=== PATIENT | female | born 1960 | race Two or more races ===

== ENCOUNTER 2017-02-17 18:17 | Inpatient (IN) | payer SELFPAY ==
[~2017-02-17] VITALS: Ht 165.1 cm; Wt 81.6 kg
[2017-02-17 18:46] LABS: DEFINITIVE VIEW TRANSMISSION; Hematocrit 46.7 % (36.0-46.0); Hemoglobin 15.4 g/dL (12.2-16.2); Mean Corpuscular Hemoglobin 31.5 pg (28.0-32.0); Mean Corpuscular Hgb Conc. 33.1 g/dL (32.0-36.0); Mean Corpuscular Volume 95.2 fL (80.0-100.0); Mean Platelet Volume 9.1 fL (7.4-10.4); Platelet Count (auto) 254 10^3/uL (140-450); Red Cell Distribution Width 14.3 % (11.6-16.0); SUSPECT VIEW TRANSMISSION
[2017-02-17 19:13] LABS: Metamyelocytes % 0; Myelocytes % 0; Promyelocytes % 0; Reactive Lymphocytes 0
[2017-02-17 19:19] LABS: Platelet Estimate Adequate
[2017-02-17 19:35] LABS: Albumin 3.2 g/dL (3.4-5.0); Anion Gap 25 (5-15); Aspartate Aminotransferase 15 U/L (15-37); BUN/Creatinine Ratio 13.7; Blood Urea Nitrogen 43 mg/dL (7-18); Calcium 7.2 mg/dL (8.5-10.1); Chloride 106 mmol/L (98-107); GFR African American 19 mL/min; GFR Non-African American 16 mL/min; Glucose 134 mg/dL (74-106); Sodium 133 mmol/L (136-145)
[2017-02-17] MEDS ORDERED: SODIUM CHLORIDE 0.9% 1,000 ML IVB ONE (19:39)
[2017-02-17 19:40] LABS: Alkaline Phosphatase 99 U/L (45-117); Bilirubin, Total < 0.1 mg/dL (0.2-1.0); Total Protein 6.4 g/dL (6.4-8.2)
[2017-02-17 19:43] LABS: Carbon Dioxide 2 mmol/L (21-32)
[2017-02-17] MEDS ORDERED: VANCOMYCIN 1GM/250ML D5W 250 ML IV ONE (19:45)
[2017-02-17] MEDS ORDERED: PIPERACILLIN-TAZOB 3.375GM 100 ML IV ONE (19:45)
[2017-02-17] MEDS ORDERED: SODIUM CHLORIDE 0.9% 2,000 ML IV ONE (19:45)
[2017-02-17 20:21] LABS: Urine Bilirubin Negative (Negative); Urine Color Yellow (Yellow); Urine Glucose Normal (Normal); Urine Ketone Negative (Negative); Urine Nitrite Negative (Negative); Urine RBC 10 /hpf (0 - 4); Urine Squamous Epithelial Cell FEW /hpf (<5); Urine Urobilinogen Normal (Negative); Urine WBC Clumps PRESENT /hpf (None Seen); Urine pH 5.5 (5.0-8.0)
[2017-02-17 20:23] LABS: Urine Blood 2+ /uL (Negative)
[2017-02-17 20:44] LABS: Magnesium 3.1 mg/dL (1.6-2.6)
[2017-02-17 20:58] LABS: INR 1.1 (0.9-1.15); Partial Thromboplastin Time 27.3 sec (22.64-33.71); Prothrombin Time 11.9 sec (9.37-12.3)
[2017-02-17] MEDS ORDERED: CEFTRIAXONE SODIUM 2 GM in D5W 5% 50 ML IV ONE (21:00)
[2017-02-17] MEDS ORDERED: SODIUM BICARBONATE 8.4 % INJ 50ML VIAL IV ONE (21:15)
[2017-02-17] MEDS ORDERED: NOREPINEPHRINE BITARTRATE 250 ML IV SCH (22:00)
[2017-02-17] MEDS ORDERED: ALBUTEROL SULF 2.5 MG/0.5ML(0.5%) NEB SOLN NEB ONE (22:45)
[2017-02-17] MEDS ORDERED: cefTRIAXone SOD 1,000 MG VL ONE (22:46)
[2017-02-18] MEDS ORDERED: SODIUM CHLORIDE 0.9% 1,000 ML IV SCH (02:14)
[2017-02-18] MEDS ORDERED: MORPHINE SULF INJ 2 MG/ML SYRINGE 1ML IV PRN (02:15)
[2017-02-18] MEDS ORDERED: PANTOPRAZOLE SODIUM 40 MG/10 ML VIAL IV ONE (02:15)
[2017-02-18] MEDS ORDERED: ONDANSETRON HCL 4 MG/2 ML VIAL IV PRN (02:15)
[2017-02-18] MEDS ORDERED: NITROGLYCERIN 0.4 MG SL TAB SL PRN (02:15)
[2017-02-18] MEDS ORDERED: ACETAMINOPHEN 325 MG TAB PO PRN (02:15)
[2017-02-18 03:15] LABS: BUN/Creatinine Ratio 15.3; Calcium 6.3 mg/dL (8.5-10.1); Potassium 3.3 mmol/L (3.5-5.1)
[2017-02-18] MEDS ORDERED: SODIUM BICARBONATE 8.4 % INJ 50ML VIAL IV ONE ×3 (03:15→07:00)
[2017-02-18] MEDS ORDERED: VANCOMYCIN PER PHARMACY 0 MG IV SCH (08:00)
[2017-02-18 08:11] VITALS: BP 124/65
[2017-02-18] MEDS: PANTOPRAZOLE SODIUM 40 MG/10 ML VIAL IV SCH (09:47)
[2017-02-18] MEDS: ENOXAPARIN SOD 30 MG/0.3 ML SYRINGE SC SCH (09:48)
[2017-02-18] MEDS: PIPERACILLIN-TAZOB 2.25GM 50 ML IV SCH ×2 (09:55→16:00)
[2017-02-18] MEDS ORDERED: LEVOFLOXACIN 500MG 100 ML IV ONE (10:00)
[2017-02-18] MEDS ORDERED: LEVOFLOXACIN 250MG 50 ML IV SCH (10:00)
[2017-02-18] MEDS ORDERED: BRIM0.159 OP (10:17)
[2017-02-18 10:50] LABS: DEFINITIVE VIEW TRANSMISSION; Hematocrit 42.7 % (36.0-46.0); Hemoglobin 14.1 g/dL (12.2-16.2); Mean Corpuscular Hemoglobin 31.8 pg (28.0-32.0); Mean Corpuscular Hgb Conc. 32.9 g/dL (32.0-36.0); Mean Corpuscular Volume 96.5 fL (80.0-100.0); Mean Platelet Volume 8.8 fL (7.4-10.4); Platelet Count (auto) 144 10^3/uL (140-450); Red Cell Distribution Width 14.2 % (11.6-16.0); SUSPECT VIEW TRANSMISSION
[2017-02-18 10:59] LABS: Urine Bilirubin Negative (Negative); Urine Color Yellow (Yellow); Urine Glucose Normal (Normal); Urine Nitrite Negative (Negative); Urine RBC 599 /hpf (0 - 4); Urine Squamous Epithelial Cell FEW /hpf (<5); Urine Urobilinogen Normal (Negative); Urine WBC Clumps PRESENT /hpf (None Seen)
[2017-02-18 11:00] LABS: Urine Blood 3+ /uL (Negative); Urine Ketone 1+ (Negative)
[2017-02-18 11:10] LABS: White Blood Cell 40.1 10^3/uL (4.4-10.8)
[2017-02-18 11:34] LABS: Myelocytes % 0; Promyelocytes % 0; Reactive Lymphocytes 0
[2017-02-18 11:38] LABS: Metamyelocytes % 4; Platelet Estimate Adequate
[2017-02-18 11:39] LABS: Burr Cells MODERATE
[2017-02-18 12:12] VITALS: BP 101/64
[2017-02-18] MEDS ORDERED: POTASSIUM CHL 20MEQ/100ML 400 ML IV ONE (12:53)
[2017-02-18] MEDS: POTASSIUM CHL 20MEQ/100ML 100 ML IV SCH ×5 (14:00→23:57)
[2017-02-18] MEDS: SODIUM BICARBONATE 50ML VIAL 150 ML in D5W 5% 1,000 ML IV SCH ×2 (14:00→22:53)
[2017-02-18] MEDS: LINEZOLID 600MG/300ML 300 ML IV SCH ×2 (14:45→22:53)
[2017-02-18] MEDS: ALBUTEROL SULF 2.5 MG/0.5ML(0.5%) NEB SOLN NEB PRN (15:41)
[2017-02-18 16:00] VITALS: BP 101/45
[2017-02-18 16:20] LABS: Hematocrit 33.2 % (36.0-46.0); Hemoglobin 11.3 g/dL (12.2-16.2); Mean Corpuscular Hemoglobin 31.6 pg (28.0-32.0); Mean Corpuscular Hgb Conc. 33.9 g/dL (32.0-36.0); Mean Corpuscular Volume 93.3 fL (80.0-100.0); Mean Platelet Volume 9.5 fL (7.4-10.4); Platelet Count (auto) 141 10^3/uL (140-450); Red Cell Distribution Width 14.1 % (11.6-16.0); SUSPECT VIEW TRANSMISSION; White Blood Cell 22.4 10^3/uL (4.4-10.8)
[2017-02-18 16:23] LABS: Metamyelocytes % 0; Myelocytes % 0; Promyelocytes % 0; Reactive Lymphocytes 0
[2017-02-18 16:44] LABS: BUN/Creatinine Ratio 13.2
[2017-02-18 16:45] LABS: Calcium 5.8 mg/dL (8.5-10.1); Potassium 2.6 mmol/L (3.5-5.1)
[2017-02-18 17:27] LABS: Platelet Estimate Decreased
[2017-02-18] MEDS ORDERED: LIDOCAINE 1% HCL (LOCAL ANESTH.) INJ 20ML MDV ID ONE (17:30)
[2017-02-18] MEDS ORDERED: VANCOMYCIN 1GM/250ML D5W 250 ML IV SCH (19:00)
[2017-02-18 20:00] VITALS: BP 129/98
[2017-02-18 20:24] LABS: Cholesterol 116 mg/dL (< 200); HDL Cholesterol 29 mg/dL (40-59); LDL Cholesterol 72 mg/dL (< 100); Triglycerides 70 mg/dL (< 150)
[2017-02-18 21:39] VITALS: BP 101/45
[2017-02-18] MEDS ORDERED: PATIENTS OWN MEDICATION EACHEYE SCH ×2 (22:00)
[2017-02-18] MEDS: BRIMONIDINE 0.2% OPTH Soln 5ml EACHEYE SCH (22:53)
[2017-02-18] MEDS: SODIUM CHLOR 0.9% PF (SALINE LOCK) 10ML VIAL IV SCH (22:53)
[2017-02-18 23:42] LABS: BUN/Creatinine Ratio 11.1
[2017-02-18 23:44] LABS: Potassium 2.6 mmol/L (3.5-5.1)
[2017-02-18 23:45] LABS: Calcium 5.5 mg/dL (8.5-10.1)
[2017-02-19] VITALS: BP 109/45
[2017-02-19] MEDS: POTASSIUM CHL 20MEQ/100ML 100 ML IV SCH (00:51)
[2017-02-19] MEDS: PIPERACILLIN-TAZOB 2.25GM 50 ML IV SCH ×3 (00:51→18:43)
[2017-02-19 04:00] VITALS: BP 98/42
[2017-02-19] MEDS: BRIMONIDINE 0.2% OPTH Soln 5ml EACHEYE SCH ×3 (05:16→22:14)
[2017-02-19] MEDS: ALBUTEROL SULF 2.5 MG/0.5ML(0.5%) NEB SOLN NEB PRN (06:06)
[2017-02-19 06:14] LABS: Hematocrit 28.2 % (36.0-46.0); Hemoglobin 9.6 g/dL (12.2-16.2); Mean Corpuscular Hemoglobin 31.7 pg (28.0-32.0); Mean Corpuscular Hgb Conc. 34.2 g/dL (32.0-36.0); Mean Corpuscular Volume 92.6 fL (80.0-100.0); Mean Platelet Volume 9.8 fL (7.4-10.4); Platelet Count (auto) 116 10^3/uL (140-450); Red Cell Distribution Width 13.9 % (11.6-16.0); SUSPECT VIEW TRANSMISSION
[2017-02-19 06:19] LABS: Metamyelocytes % 0; Myelocytes % 0; Promyelocytes % 0; Reactive Lymphocytes 0
[2017-02-19 06:24] LABS: Albumin 2.3 g/dL (3.4-5.0); BUN/Creatinine Ratio 11.7
[2017-02-19 06:27] LABS: Calcium 5.5 mg/dL (8.5-10.1)
[2017-02-19 06:28] LABS: Bilirubin, Total 0.2 mg/dL (0.2-1.0); Potassium 2.5 mmol/L (3.5-5.1); Total Protein 4.8 g/dL (6.4-8.2); Uric Acid 6.2 mg/dL (2.6-6.0)
[2017-02-19] MEDS ORDERED: CALCIUM GLUC 4.65 MEQ/10ML 4.65 MEQ in SODIUM CHL 0.9% 50 ML IV ONE ×2 (07:00→08:00)
[2017-02-19] MEDS ORDERED: POTASSIUM CHL 20 Meq TABLET PO ONE ×2 (07:00→17:45)
[2017-02-19 08:00] VITALS: BP 100/78
[2017-02-19] MEDS: ENOXAPARIN SOD 30 MG/0.3 ML SYRINGE SC SCH (08:35)
[2017-02-19] MEDS: PANTOPRAZOLE SODIUM 40 MG/10 ML VIAL IV SCH (08:35)
[2017-02-19] MEDS: SODIUM BICARBONATE 50ML VIAL 150 ML in D5W 5% 1,000 ML IV SCH ×2 (08:45→11:58)
[2017-02-19 09:18] LABS: Ovalocytes FEW; Platelet Estimate Decreased; Stomatocytes Moderate
[2017-02-19] MEDS ORDERED: POTASSIUM CHLORIDE 40 MEQ, LIDOCAINE 1% (LOCAL ANESTH.) 4 ML in SODIUM CHL 0.9% 250 ML IV ONE (09:45)
[2017-02-19] MEDS ORDERED: LEVOFLOXACIN 250MG 50 ML IV SCH (10:00)
[2017-02-19] MEDS: SODIUM CHLOR 0.9% PF (SALINE LOCK) 10ML VIAL IV SCH ×2 (10:17→22:14)
[2017-02-19] MEDS: LINEZOLID 600MG/300ML 300 ML IV SCH ×2 (10:21→22:14)
[2017-02-19 12:00] VITALS: BP 112/58
[2017-02-19] MEDS ORDERED: LORazepam 2MG/ML-1ML VIAL ONE (13:57)
[2017-02-19] MEDS ORDERED: LORazepam 2MG/ML-1ML VIAL IV ONE (14:00)
[2017-02-19 16:00] VITALS: BP 116/75
[2017-02-19] MEDS: SOD CHL 0.45% 1,000 ML IV SCH (18:43)
[2017-02-19 20:00] VITALS: BP 101/53
[2017-02-20] VITALS: BP 98/60
[2017-02-20] MEDS: PIPERACILLIN-TAZOB 2.25GM 50 ML IV SCH ×2 (00:08→08:54)
[2017-02-20 04:00] VITALS: BP 128/52
[2017-02-20] MEDS: SOD CHL 0.45% 1,000 ML IV SCH (04:19)
[2017-02-20] MEDS: HYDROcodone-ACET 5/325MG TAB PO PRN ×2 (04:20→10:25)
[2017-02-20] MEDS: BRIMONIDINE 0.2% OPTH Soln 5ml EACHEYE SCH ×3 (06:03→21:07)
[2017-02-20 06:53] LABS: Basophils # (auto) 0 uL; Basophils % (auto) 0.4 % (0.0-2.0); Eosinophils # (auto) 0 uL; Eosinophils % (auto) 0.1 % (0.0-7.0); Hematocrit 26.6 % (36.0-46.0); Lymphocytes # (auto) 1.8 uL; Lymphocytes % (auto) 18.5 % (10.0-50.0); Mean Corpuscular Hemoglobin 31.8 pg (28.0-32.0); Mean Corpuscular Volume 93.6 fL (80.0-100.0); Mean Platelet Volume 10.1 fL (7.4-10.4); Monocytes # (auto) 0.9 uL; Monocytes % (auto) 9.4 % (0.0-12.0); Neutrophils # (auto) 6.8 uL; Neutrophils % (auto) 71.6 % (37.0-80.0); Platelet Count (auto) 92 10^3/uL (140-450); Red Cell Distribution Width 14.5 % (11.6-16.0); White Blood Cell 9.6 10^3/uL (4.4-10.8)
[2017-02-20 07:31] LABS: BUN/Creatinine Ratio 11.2
[2017-02-20 07:37] LABS: Calcium 5.9 mg/dL (8.5-10.1); Potassium 2.6 mmol/L (3.5-5.1)
[2017-02-20 07:58] VITALS: BP 111/77
[2017-02-20] MEDS ORDERED: POTASSIUM CHLORIDE 20 MEQ, LIDOCAINE 1% (LOCAL ANESTH.) 2 ML in SODIUM CHL 0.9% 100 ML IV ONE (09:30)
[2017-02-20] MEDS ORDERED: LOPERAMIDE HCL 2 MG CAP PO ONE (09:30)
[2017-02-20] MEDS ORDERED: POTASSIUM CHLORIDE 40 MEQ, LIDOCAINE 1% (LOCAL ANESTH.) 4 ML in SODIUM CHL 0.9% 250 ML IV ONE (09:30)
[2017-02-20] MEDS: SODIUM CHLOR 0.9% PF (SALINE LOCK) 10ML VIAL IV SCH ×2 (09:47→21:07)
[2017-02-20] MEDS: ENOXAPARIN SOD 30 MG/0.3 ML SYRINGE SC SCH (09:47)
[2017-02-20] MEDS: PANTOPRAZOLE SODIUM 40 MG/10 ML VIAL IV SCH (10:13)
[2017-02-20] MEDS: LINEZOLID 600MG/300ML 300 ML IV SCH (10:14)
[2017-02-20 11:58] VITALS: BP 132/80
[2017-02-20] MEDS ORDERED: cefTRIAXone 1GM/50ML D5W 50 ML IV ONE (12:00)
[2017-02-20] MEDS: SOD CHL 0.45% WITH 20MEQ KCL 1,000 ML IV SCH ×2 (12:52→22:50)
[2017-02-20] MEDS: LOPERAMIDE HCL 2 MG CAP PO PRN (12:57)
[2017-02-20] MEDS: POTASSIUM CHL 20 Meq TABLET PO SCH ×2 (14:51→21:32)
[2017-02-20 18:21] VITALS: BP 125/83
[2017-02-20 18:47] LABS: BUN/Creatinine Ratio 10.5; Potassium 3.7 mmol/L (3.5-5.1)
[2017-02-20 19:33] LABS: Calcium 5.8 mg/dL (8.5-10.1)
[2017-02-20] MEDS ORDERED: CALCIUM GLUC 4.65 MEQ/10ML 4.65 MEQ in SODIUM CHL 0.9% 50 ML IV ONE (20:30)
[2017-02-20 21:59] VITALS: BP 125/77
[2017-02-21] VITALS (7 sets, daily range): BP systolic 99–141; BP diastolic 51–94
[2017-02-21] MEDS: HYDROcodone-ACET 5/325MG TAB PO PRN ×2 (01:05→21:39)
[2017-02-21] MEDS: SOD CHL 0.45% WITH 20MEQ KCL 1,000 ML IV SCH (03:25)
[2017-02-21] MEDS: BRIMONIDINE 0.2% OPTH Soln 5ml EACHEYE SCH ×3 (05:18→21:40)
[2017-02-21] MEDS: POTASSIUM CHL 20 Meq TABLET PO SCH ×3 (05:18→21:40)
[2017-02-21] MEDS: LOPERAMIDE HCL 2 MG CAP PO PRN ×6 (08:41→22:36)
[2017-02-21] MEDS: cefTRIAXone 1GM/50ML D5W 50 ML IV SCH (08:42)
[2017-02-21] MEDS: PANTOPRAZOLE SODIUM 40 MG/10 ML VIAL IV SCH (09:38)
[2017-02-21] MEDS: ENOXAPARIN SOD 30 MG/0.3 ML SYRINGE SC SCH (09:38)
[2017-02-21] MEDS: SODIUM CHLOR 0.9% PF (SALINE LOCK) 10ML VIAL IV SCH (09:38)
[2017-02-21] MEDS ORDERED: THROAT LOZENGES(CEPASTAT) MT PRN (10:15)
[2017-02-21] MEDS ORDERED: THROAT LOZENGES(CEPASTAT) MT ONE (10:15)
[2017-02-21 10:54] LABS: Basophils # (auto) 0 uL; Basophils % (auto) 0.3 % (0.0-2.0); Eosinophils # (auto) 0.1 uL; Eosinophils % (auto) 0.8 % (0.0-7.0); Hematocrit 29.3 % (36.0-46.0); Hemoglobin 10.1 g/dL (12.2-16.2); Mean Corpuscular Hemoglobin 32.4 pg (28.0-32.0); Mean Corpuscular Hgb Conc. 34.3 g/dL (32.0-36.0); Mean Corpuscular Volume 94.4 fL (80.0-100.0); Mean Platelet Volume 9.6 fL (7.4-10.4); Monocytes # (auto) 0.9 uL; Neutrophils # (auto) 7.6 uL; Neutrophils % (auto) 71.9 % (37.0-80.0); Platelet Count (auto) 125 10^3/uL (140-450); Red Cell Distribution Width 15.1 % (11.6-16.0); White Blood Cell 10.6 10^3/uL (4.4-10.8)
[2017-02-21 11:08] LABS: Calcium 6.3 mg/dL (8.5-10.1); Potassium 4.3 mmol/L (3.5-5.1)
[2017-02-21 11:12] LABS: Albumin 2.6 g/dL (3.4-5.0); BUN/Creatinine Ratio 11.3
[2017-02-21 11:14] LABS: Bilirubin, Total 0.2 mg/dL (0.2-1.0); Total Protein 5.4 g/dL (6.4-8.2)
[2017-02-21] MEDS ORDERED: CALCIUM CARB 500 MG CHEW TAB PO SCH (12:00)
[2017-02-21] MEDS: CALCIUM CARB 500 MG CHEW TAB PO SCH ×2 (14:00→21:40)
[2017-02-22] MEDS: HYDROcodone-ACET 5/325MG TAB PO PRN ×3 (01:36→09:46)
[2017-02-22] MEDS: SOD CHL 0.45% WITH 20MEQ KCL 1,000 ML IV SCH (01:36)
[2017-02-22 05:14] VITALS: BP 133/80
[2017-02-22] MEDS: POTASSIUM CHL 20 Meq TABLET PO SCH (05:31)
[2017-02-22] MEDS: CALCIUM CARB 500 MG CHEW TAB PO SCH (05:31)
[2017-02-22] MEDS: BRIMONIDINE 0.2% OPTH Soln 5ml EACHEYE SCH (05:35)
[2017-02-22 05:46] LABS: BUN/Creatinine Ratio 14.9; Calcium 6.3 mg/dL (8.5-10.1); Potassium 5.2 mmol/L (3.5-5.1)
[2017-02-22 07:26] VITALS: BP 125/79
[2017-02-22] MEDS ORDERED: SOD CHL 0.45% 1,000 ML IV SCH (08:30)
[2017-02-22] MEDS: cefTRIAXone 1GM/50ML D5W 50 ML IV SCH (08:53)
[2017-02-22] MEDS: ENOXAPARIN SOD 30 MG/0.3 ML SYRINGE SC SCH (08:54)
[2017-02-22] MEDS ORDERED: CIPR-173 PO (09:16)
[2017-02-22 12:41] VITALS: BP 131/73
== END 2017-02-22 14:13 | disposition home or self-care (01) | DRG 871 ==
LOC: EDBD 18:17 → ER 18:20 → TELE 18:21 → DOU IN ICU 02-18 08:24 → TELE-WESTW 02-20 14:58 → WEST WING 02-21 19:13
PROVIDERS: ADMIT Nurse Practitioner; ATTEND Internal Medicine
DX: A41.9 Sepsis, unspecified organism (principal); G93.41 Metabolic encephalopathy; R65.21 Severe sepsis with septic shock; N17.0 Acute kidney failure with tubular necrosis; N39.0 Urinary tract infection, site not specified; E44.1 Mild protein-calorie malnutrition; G89.4 Chronic pain syndrome; M54.30 Sciatica, unspecified side; B96.89 Other specified bacterial agents as the cause of diseases classified elsewhere; N20.0 Calculus of kidney; K57.90 Diverticulosis of intestine, part unspecified, without perforation or abscess without bleeding; E86.9 Volume depletion, unspecified; E87.6 Hypokalemia; E83.51 Hypocalcemia; D32.9 Benign neoplasm of meninges, unspecified; E86.0 Dehydration; B96.20 Unspecified Escherichia coli [E. coli] as the cause of diseases classified elsewhere; J45.909 Unspecified asthma, uncomplicated; H54.42 Blindness, left eye, normal vision right eye; Z68.27 Body mass index [BMI] 27.0-27.9, adult; I69.398 Other sequelae of cerebral infarction
CPT/HCPCS: 36415; 36569; 36600; 70450; 70551; 71010; 74176; 80048; 80053; 80061; 80307; 81001; 82270; 82570; 82805; 83735; 84132; 84156; 84300; 84550; 85007; 85025; 85027; 87045; 87081; 87086; 87088; 87186; 87493; 87899; 93005; 93306; 93886; 94640; 95819; 96365; 96367; 96375; 96376; 99291; C9113; J0696; J1956; J2001; J2543; J3480; J7060

== ENCOUNTER 2017-07-12 18:51 | Inpatient (IN) | payer OTHER, MEDICAID ==
[~2017-07-12] VITALS: Ht 165.1 cm; Wt 75.5 kg
[~2017-07-12 18:51] MED LIST: BRIM0.159 OP; CIPR-173 PO
[2017-07-12] MEDS ORDERED: SODIUM CHLORIDE 0.9% 1,000 ML IVB ONE (19:34)
[2017-07-12] MEDS ORDERED: ONDANSETRON HCL 4 MG/2 ML VIAL IV ONE (19:45)
[2017-07-12] MEDS ORDERED: MORPHINE SULF INJ 2 MG/ML SYRINGE 1ML IV ONE (19:45)
[2017-07-12 20:00] LABS: Basophils # (auto) 0 uL; Basophils % (auto) 0.1 % (0.0-2.0); Eosinophils # (auto) 0 uL; Eosinophils % (auto) 0.1 % (0.0-7.0); Hematocrit 48.7 % (36.0-46.0); Hemoglobin 16.8 g/dL (12.2-16.2); Lymphocytes % (auto) 5.8 % (10.0-50.0); Mean Corpuscular Hemoglobin 32.7 pg (28.0-32.0); Mean Corpuscular Hgb Conc. 34.4 g/dL (32.0-36.0); Mean Platelet Volume 8.7 fL (6.9-10.8); Monocytes # (auto) 1.3 uL; Neutrophils # (auto) 14.4 uL; Nucleated Red Blood Cells % 0.1 %; Platelet Count (auto) 334 10^3/uL (140-450); Red Cell Distribution Width 14.3 % (11.8-14.3); White Blood Cell 16.8 10^3/uL (4.4-10.8)
[2017-07-12 20:17] LABS: Albumin 4.2 g/dL (3.4-5.0); Alkaline Phosphatase 75 U/L (45-117); Anion Gap 22 (5-15); Aspartate Aminotransferase 9 U/L (15-37); BUN/Creatinine Ratio 18.3; Bilirubin, Total 0.2 mg/dL (0.2-1.0); Blood Urea Nitrogen 38 mg/dL (7-18); Calcium 8.5 mg/dL (8.5-10.1); Chloride 103 mmol/L (98-107); GFR African American 31 mL/min; GFR Non-African American 26 mL/min; Glucose 134 mg/dL (74-106); Magnesium 3.3 mg/dL (1.6-2.6); Potassium 3.6 mmol/L (3.5-5.1); Sodium 133 mmol/L (136-145); Total Protein 8.3 g/dL (6.4-8.2)
[2017-07-12 20:26] LABS: Carbon Dioxide 8 mmol/L (21-32)
[2017-07-12] MEDS ORDERED: PANTOPRAZOLE 40 MG/10 ML VIAL IV ONE (23:45)
[2017-07-12] MEDS ORDERED: LEVOFLOXACIN 250MG 50 ML IV ONE (23:45)
[2017-07-12] MEDS ORDERED: NITROGLYCERIN 0.4 MG SL TAB SL PRN (23:45)
[2017-07-12] MEDS ORDERED: SODIUM CHLORIDE 0.9% 500 ML IV ONE (23:45)
[2017-07-12] MEDS ORDERED: ONDANSETRON HCL 4 MG/2 ML VIAL IV PRN (23:45)
[2017-07-12] MEDS ORDERED: MORPHINE SULF INJ 2 MG/ML SYRINGE 1ML IV PRN (23:45)
[2017-07-12] MEDS ORDERED: SODIUM CHLORIDE 0.9% 1,000 ML IV SCH (23:45)
[2017-07-12] MEDS ORDERED: ACETAMINOPHEN 325 MG TAB PO PRN (23:45)
[2017-07-12] MEDS ORDERED: ALBUTEROL SULF 2.5 MG/0.5ML(0.5%) NEB SOLN NEB PRN (23:45)
[2017-07-13 00:04] LABS: Urine Bilirubin Negative (Negative); Urine Blood 2+ /uL (Negative); Urine Color Yellow (Yellow); Urine Glucose 1+ mg/dL (Normal); Urine Hyaline Cast MANY /lpf (0 - 2); Urine Ketone Negative (Negative); Urine Mucus FEW (None Seen); Urine Nitrite Negative (Negative); Urine RBC 33 /hpf (0 - 4); Urine Squamous Epithelial Cell FEW /hpf (<5); Urine Urobilinogen Normal (Negative); Urine WBC Clumps PRESENT /hpf (None Seen)
[2017-07-13 00:42] LABS: BUN/Creatinine Ratio 18.5; Calcium 7.6 mg/dL (8.5-10.1); Potassium 3.7 mmol/L (3.5-5.1)
[2017-07-13] MEDS ORDERED: SODIUM BICARBONATE 50ML VIAL 50 ML in SODIUM CHL 0.9% 1,000 ML IV SCH (01:00)
[2017-07-13] MEDS ORDERED: SODIUM BICARBONATE 8.4 % INJ 50ML VIAL IV ONE ×2 (01:00→03:15)
[2017-07-13] MEDS ORDERED: SODIUM BICARBONATE 8.4% INJ 50ML SYRINGE ONE ×2 (01:22→04:24)
[2017-07-13 02:22] VITALS: BP 104/60
[2017-07-13 04:35] LABS: Basophils # (auto) 0 uL; Basophils % (auto) 0.2 % (0.0-2.0); Eosinophils # (auto) 0 uL; Hematocrit 42.5 % (36.0-46.0); Hemoglobin 14.4 g/dL (12.2-16.2); Lymphocytes # (auto) 1.1 uL; Lymphocytes % (auto) 7.4 % (10.0-50.0); Mean Corpuscular Hemoglobin 31.8 pg (28.0-32.0); Mean Corpuscular Hgb Conc. 33.7 g/dL (32.0-36.0); Mean Corpuscular Volume 94.2 fL (80.0-100.0); Mean Platelet Volume 8.2 fL (6.9-10.8); Monocytes # (auto) 1.7 uL; Monocytes % (auto) 11.5 % (0.0-12.0); Neutrophils # (auto) 11.6 uL; Neutrophils % (auto) 80.9 % (37.0-80.0); Platelet Count (auto) 188 10^3/uL (140-450); Red Cell Distribution Width 14.1 % (11.8-14.3); White Blood Cell 14.4 10^3/uL (4.4-10.8)
[2017-07-13 04:53] LABS: Albumin 3.4 g/dL (3.4-5.0); Anion Gap 21 (5-15); Blood Urea Nitrogen 44 mg/dL (7-18); Calcium 7.5 mg/dL (8.5-10.1); Chloride 111 mmol/L (98-107); Glucose 92 mg/dL (74-106); Potassium 3.4 mmol/L (3.5-5.1); Sodium 138 mmol/L (136-145)
[2017-07-13 04:56] LABS: Aspartate Aminotransferase 14 U/L (15-37); BUN/Creatinine Ratio 19.2; GFR African American 28 mL/min; GFR Non-African American 23 mL/min
[2017-07-13 04:58] LABS: Alkaline Phosphatase 58 U/L (45-117); Bilirubin, Total < 0.1 mg/dL (0.2-1.0); Total Protein 6.5 g/dL (6.4-8.2)
[2017-07-13 05:25] LABS: Carbon Dioxide 6 mmol/L (21-32)
[2017-07-13] MEDS ORDERED: SODIUM BICARBONATE 50ML VIAL 50 ML in SODIUM CHLORIDE 0.9% 1,000 ML IV SCH (06:00)
[2017-07-13 07:23] LABS: Base Excess -21.6 mmol/L (-2.0-2.0); Blood COHb 0.4 % (0.5-1.5); Blood MetHb 0.2 % (0.0-1.5); HCO3 5.2 mmol/L (22-26.0); MODE NASAL CANNULA; O2Hb 96.4 % (94.0-97.0); PCO2 15.8 mmHg (35.0-45.0); PCO2(T) 15.8 mmHg (35.0-45.0); PO2 104.5 mmHg (80.0-100.0); PO2(T) 104.5 mmHg (80.0-100.0); Room 1022-ERT; Sample Type Arterial; pH 7.137 (7.350-7.450)
[2017-07-13 07:44] LABS: Allen Test Yes; Base Excess -21.9 mmol/L (-2.0-2.0); Blood 02Sat 96.6 % (96-100); Blood COHb 0.2 % (0.5-1.5); Blood MetHb 0.3 % (0.0-1.5); HCO3 5.7 mmol/L (22-26.0); HHb 3.4 % (0.0-5.0); MODE ROOM AIR; O2Hb 96.1 % (94.0-97.0); PCO2 18.8 mmHg (35.0-45.0); PCO2(T) 18.8 mmHg (35.0-45.0); Room 1022-ERT; Sample Type Arterial; pH 7.103 (7.350-7.450)
[2017-07-13] MEDS: PANTOPRAZOLE 40 MG/10 ML VIAL IV SCH (10:28)
[2017-07-13] MEDS: LEVOFLOXACIN 250MG 50 ML IV SCH (10:28)
[2017-07-13] MEDS: ENOXAPARIN SOD 30 MG/0.3 ML SYRINGE SC SCH (10:29)
[2017-07-13] MEDS: TEMAZEPAM 15 MG CAP PO PRN (14:13)
[2017-07-13 15:00] VITALS: BP 97/55
[2017-07-13 15:19] LABS: Allen Test Yes; Base Excess -19.9 mmol/L (-2.0-2.0); Blood 02Sat 96.9 % (96-100); Blood COHb 0.3 % (0.5-1.5); Blood MetHb 0.2 % (0.0-1.5); HHb 3.1 % (0.0-5.0); MODE ROOM AIR; O2Hb 96.4 % (94.0-97.0); PCO2 20.5 mmHg (35.0-45.0); PCO2(T) 20.5 mmHg (35.0-45.0); PO2 106.6 mmHg (80.0-100.0); PO2(T) 106.6 mmHg (80.0-100.0); Room 0261D; Sample Type Arterial; pH 7.152 (7.350-7.450)
[2017-07-13 16:00] VITALS: BP 107/49
[2017-07-13] MEDS ORDERED: TIMO0.5S3 EACHEYE (16:59)
[2017-07-13] MEDS ORDERED: BRIM0.159 OP (16:59)
[2017-07-13] MEDS: SODIUM BICARBONATE 50ML VIAL 50 ML in SODIUM CHLORIDE 0.9% 1,000 ML IV SCH (17:36)
[2017-07-13] MEDS: HYDROcodone-ACET 5/325MG TAB PO PRN (19:17)
[2017-07-13 19:53] VITALS: BP 120/69
[2017-07-14] VITALS (7 sets, daily range): BP systolic 100–124; BP diastolic 47–66
[2017-07-14] MEDS: TEMAZEPAM 15 MG CAP PO PRN (01:04)
[2017-07-14 05:27] LABS: Basophils # (auto) 0 uL; Basophils % (auto) 0.3 % (0.0-2.0); Eosinophils # (auto) 0 uL; Eosinophils % (auto) 0.1 % (0.0-7.0); Hemoglobin 12.3 g/dL (12.2-16.2); Lymphocytes # (auto) 1.2 uL; Lymphocytes % (auto) 14.6 % (10.0-50.0); Mean Corpuscular Hemoglobin 32.1 pg (28.0-32.0); Mean Corpuscular Hgb Conc. 34.2 g/dL (32.0-36.0); Mean Corpuscular Volume 93.8 fL (80.0-100.0); Mean Platelet Volume 8.5 fL (6.9-10.8); Monocytes # (auto) 1.4 uL; Monocytes % (auto) 16.9 % (0.0-12.0); Neutrophils # (auto) 5.5 uL; Neutrophils % (auto) 68.1 % (37.0-80.0); Nucleated Red Blood Cells % 0.1 %; Platelet Count (auto) 149 10^3/uL (140-450); Red Cell Distribution Width 14.4 % (11.8-14.3); White Blood Cell 8.1 10^3/uL (4.4-10.8)
[2017-07-14 05:58] LABS: BUN/Creatinine Ratio 17.1; Calcium 6.5 mg/dL (8.5-10.1)
[2017-07-14 06:04] LABS: Potassium 2.3 mmol/L (3.5-5.1)
[2017-07-14] MEDS: HYDROcodone-ACET 5/325MG TAB PO PRN ×4 (06:05→22:45)
[2017-07-14] MEDS ORDERED: POTASSIUM CHL 20 Meq TABLET PO ONE ×3 (06:15→11:45)
[2017-07-14] MEDS: ENOXAPARIN SOD 30 MG/0.3 ML SYRINGE SC SCH (09:07)
[2017-07-14] MEDS: PANTOPRAZOLE 40 MG/10 ML VIAL IV SCH (09:08)
[2017-07-14] MEDS: LEVOFLOXACIN 250MG 50 ML IV SCH (09:08)
[2017-07-14] MEDS ORDERED: MANNITOL FTV 25% 12.5 GM/50 ML 50 ML IV ONE (10:45)
[2017-07-14] MEDS ORDERED: MANNITOL 20% SOLN 100 gm/500ml 62.5 ML IV ONE (11:45)
[2017-07-14] MEDS: SODIUM BICARBONATE 50ML VIAL 50 ML in SODIUM CHLORIDE 0.9% 1,000 ML IV SCH ×2 (14:27→22:48)
[2017-07-14] MEDS: POTASSIUM CHL 20 Meq TABLET PO SCH (22:44)
[2017-07-14] MEDS: SODIUM BICARBONATE 650 MG TAB PO SCH (22:44)
[2017-07-15] MEDS: TEMAZEPAM 15 MG CAP PO PRN ×2 (00:42→22:09)
[2017-07-15] MEDS: SODIUM BICARBONATE 650 MG TAB PO SCH ×3 (05:19→22:08)
[2017-07-15 05:24] VITALS: BP 104/58
[2017-07-15 06:12] LABS: Basophils # (auto) 0 uL; Basophils % (auto) 0.1 % (0.0-2.0); Eosinophils # (auto) 0 uL; Eosinophils % (auto) 0.4 % (0.0-7.0); Hematocrit 32.1 % (36.0-46.0); Hemoglobin 11.5 g/dL (12.2-16.2); Lymphocytes # (auto) 2.1 uL; Mean Corpuscular Hemoglobin 32.8 pg (28.0-32.0); Mean Corpuscular Volume 91.1 fL (80.0-100.0); Mean Platelet Volume 8.5 fL (6.9-10.8); Monocytes # (auto) 1.1 uL; Monocytes % (auto) 14.7 % (0.0-12.0); Neutrophils % (auto) 55.8 % (37.0-80.0); Platelet Count (auto) 165 10^3/uL (140-450); Red Cell Distribution Width 14.6 % (11.8-14.3); White Blood Cell 7.2 10^3/uL (4.4-10.8)
[2017-07-15] MEDS: HYDROcodone-ACET 5/325MG TAB PO PRN ×4 (06:28→19:39)
[2017-07-15 06:39] LABS: Calcium 6.8 mg/dL (8.5-10.1)
[2017-07-15 06:42] LABS: BUN/Creatinine Ratio 22.3
[2017-07-15 06:44] LABS: Potassium 2.7 mmol/L (3.5-5.1)
[2017-07-15] MEDS: POTASSIUM CHL 20 Meq TABLET PO SCH ×2 (08:32→22:09)
[2017-07-15 09:00] VITALS: BP 124/68
[2017-07-15] MEDS: LEVOFLOXACIN 250MG 50 ML IV SCH (09:28)
[2017-07-15] MEDS: PANTOPRAZOLE 40 MG/10 ML VIAL IV SCH (09:29)
[2017-07-15] MEDS: ENOXAPARIN SOD 30 MG/0.3 ML SYRINGE SC SCH (09:29)
[2017-07-15 10:50] LABS: Blood 02Sat 96.3 % (96-100); Blood COHb 0.5 % (0.5-1.5); Blood MetHb 0.3 % (0.0-1.5); HHb 3.7 % (0.0-5.0); MODE ROOM AIR; O2Hb 95.5 % (94.0-97.0); PCO2 18.9 mmHg (35.0-45.0); PCO2(T) 18.9 mmHg (35.0-45.0); PO2 102.7 mmHg (80.0-100.0); PO2(T) 102.7 mmHg (80.0-100.0); Sample Type Arterial; pH 7.037 (7.350-7.450)
[2017-07-15] MEDS ORDERED: POTASSIUM CHL 20 Meq TABLET PO ONE (11:45)
[2017-07-15 13:00] VITALS: BP 110/61
[2017-07-15] MEDS: SODIUM BICARBONATE 50ML VIAL 50 ML in SODIUM CHLORIDE 0.9% 1,000 ML IV SCH ×3 (14:20→23:56)
[2017-07-15 17:01] VITALS: BP 128/80
[2017-07-15 22:58] VITALS: BP 123/76
[2017-07-15 23:51] VITALS: BP 123/76
[2017-07-16] MEDS: HYDROcodone-ACET 5/325MG TAB PO PRN ×5 (00:44→22:13)
[2017-07-16 05:43] VITALS: BP 126/75
[2017-07-16] MEDS: SODIUM BICARBONATE 650 MG TAB PO SCH ×3 (05:45→22:12)
[2017-07-16 06:29] LABS: BUN/Creatinine Ratio 28.5; Calcium 7.5 mg/dL (8.5-10.1)
[2017-07-16 06:34] LABS: Potassium 2.6 mmol/L (3.5-5.1)
[2017-07-16] MEDS ORDERED: POTASSIUM CHL 20 Meq TABLET PO ONE ×4 (06:45→17:00)
[2017-07-16] MEDS: SODIUM BICARBONATE 50ML VIAL 50 ML in SODIUM CHLORIDE 0.9% 1,000 ML IV SCH (08:04)
[2017-07-16 09:00] VITALS: BP 113/81
[2017-07-16] MEDS: POTASSIUM CHL 20 Meq TABLET PO SCH ×2 (09:04→22:13)
[2017-07-16] MEDS: PANTOPRAZOLE 40 MG/10 ML VIAL IV SCH (09:04)
[2017-07-16] MEDS: LEVOFLOXACIN 250MG 50 ML IV SCH (09:05)
[2017-07-16] MEDS: ENOXAPARIN SOD 30 MG/0.3 ML SYRINGE SC SCH (09:07)
[2017-07-16 13:00] VITALS: BP 119/55
[2017-07-16 17:00] VITALS: BP 132/72
[2017-07-16] MEDS: TEMAZEPAM 15 MG CAP PO PRN (23:54)
[2017-07-17] MEDS: HYDROcodone-ACET 5/325MG TAB PO PRN ×2 (04:18→09:47)
[2017-07-17 05:24] VITALS: BP 140/83
[2017-07-17] MEDS: SODIUM BICARBONATE 650 MG TAB PO SCH (06:03)
[2017-07-17 06:53] LABS: Calcium 8.4 mg/dL (8.5-10.1)
[2017-07-17 06:57] LABS: Potassium 2.9 mmol/L (3.5-5.1)
[2017-07-17 08:44] VITALS: BP 118/57
[2017-07-17] MEDS: POTASSIUM CHL 20 Meq TABLET PO SCH (09:36)
[2017-07-17] MEDS: ENOXAPARIN SOD 30 MG/0.3 ML SYRINGE SC SCH (09:37)
[2017-07-17] MEDS ORDERED: D5W 5% 1,000 ML IV SCH (10:00)
[2017-07-17] MEDS ORDERED: LEVOFLOXACIN 500 MG TAB PO SCH (10:00)
[2017-07-17] MEDS ORDERED: PANTOPRAZOLE 40 MG TAB PO SCH (10:00)
[2017-07-17] MEDS ORDERED: SODI650T PO (10:12)
[2017-07-17] MEDS ORDERED: LEVO500T21 PO (10:12)
[2017-07-17] MEDS ORDERED: POTA20TA53 PO (10:12)
[2017-07-17] MEDS ORDERED: POTASSIUM CHL 20 Meq TABLET PO ONE (10:30)
[2017-07-17 13:06] VITALS: BP 126/73
[2017-07-17 14:12] VITALS: BP 126/73
[2017-07-17 16:21] VITALS: BP 132/65
[2017-07-17] MEDS ORDERED: SODIUM BICARBONATE 650 MG TAB PO SCH (22:00)
== END 2017-07-17 17:46 | disposition home or self-care (01) | DRG 720 ==
LOC: ER 18:51 → EDSEX 18:51 → EDBD 18:51 → TELE 18:52 → DOU IN ICU 07-13 14:39 → TELE-WESTW 07-14 05:40 → DOU IN ICU 07-14 06:03 → CENTRAL 07-14 16:17
PROVIDERS: ADMIT Nurse Practitioner; ATTEND Internal Medicine
DX: A41.9 Sepsis, unspecified organism (principal); N17.0 Acute kidney failure with tubular necrosis; N39.0 Urinary tract infection, site not specified; J44.9 Chronic obstructive pulmonary disease, unspecified; N18.4 Chronic kidney disease, stage 4 (severe); I12.9 Hypertensive chronic kidney disease with stage 1 through stage 4 chronic kidney disease, or unspecified chronic kidney disease; E87.6 Hypokalemia; E86.0 Dehydration; M54.9 Dorsalgia, unspecified; G89.29 Other chronic pain; N13.5 Crossing vessel and stricture of ureter without hydronephrosis; N20.2 Calculus of kidney with calculus of ureter; E87.0 Hyperosmolality and hypernatremia; N94.89 Other specified conditions associated with female genital organs and menstrual cycle; Z86.73 Personal history of transient ischemic attack (TIA), and cerebral infarction without residual deficits
CPT/HCPCS: 36415; 36600; 71010; 74176; 76856; 80048; 80053; 81001; 82378; 82570; 82805; 83690; 83735; 84132; 84156; 84484; 85025; 86301; 86304; 87040; 87081; 87086; 93005; 94761; 96361; 96374; 96375; C9113; J2405

== ENCOUNTER 2017-10-14 15:22 | Emergency (ER) | payer MEDICAID, OTHER ==
[~2017-10-14] VITALS: Ht 157.5 cm; Wt 77.6 kg
[~2017-10-14 15:22] MED LIST changes: -CIPR-173 PO; +LEVO500T21 PO; +POTA20TA53 PO; +SODI650T PO; +TIMO0.5S3 EACHEYE
[2017-10-14 16:42] VITALS: BP 122/86
[2017-10-14] MEDS ORDERED: HYDROcodone-ACET 10/325MG TAB PO ONE (16:45)
== END 2017-10-14 17:32 | disposition home or self-care (01) ==
LOC: ER 15:32
DX: S33.5XXA Sprain of ligaments of lumbar spine, initial encounter (principal); G89.29 Other chronic pain; M54.5 Low back pain; N18.9 Chronic kidney disease, unspecified; Z86.73 Personal history of transient ischemic attack (TIA), and cerebral infarction without residual deficits; Z79.899 Other long term (current) drug therapy; X58.XXXA Exposure to other specified factors, initial encounter; Y93.89 Activity, other specified; Y92.89 Other specified places as the place of occurrence of the external cause; Y99.8 Other external cause status

== ENCOUNTER 2017-11-18 18:33 | Emergency (ER) | payer MEDICAID ==
[~2017-11-18] VITALS: Ht 157.5 cm; Wt 77.1 kg
[2017-11-18 20:35] VITALS: BP 127/75
[2017-11-18] MEDS ORDERED: HYDROcodone-ACET 10/325MG TAB PO ONE (21:00)
== END 2017-11-18 21:14 | disposition home or self-care (01) ==
LOC: ER 18:33
DX: G43.909 Migraine, unspecified, not intractable, without status migrainosus (principal); N18.9 Chronic kidney disease, unspecified; Z86.73 Personal history of transient ischemic attack (TIA), and cerebral infarction without residual deficits
CPT/HCPCS: 92610

== ENCOUNTER 2017-11-21 13:33 | Inpatient (IN) | payer MEDICAID, OTHER ==
[~2017-11-21] VITALS: Ht 160 cm; Wt 81.0 kg
[2017-11-21] MEDS ORDERED: SODIUM CHLORIDE 0.9% 1,000 ML IV ONE ×2 (13:47→16:00)
[2017-11-21 14:39] LABS: Hematocrit 46.6 % (36.0-46.0); Hemoglobin 14.9 g/dL (12.2-16.2); Mean Corpuscular Volume 100.1 fL (80.0-100.0); Platelet Count (auto) 281 10^3/uL (140-450); Red Blood Cells 4.66 10^6/uL (4.0-5.20); Red Cell Distribution Width 14.9 % (11.8-14.3); White Blood Cell 19.2 10^3/uL (4.4-10.8)
[2017-11-21] MEDS ORDERED: NALOXONE HCL 1MG/ML 2ML SYRINGE ONE (14:46)
[2017-11-21 14:52] LABS: Band Neutrophils % (manual) 0; Basophils % (manual) 0 (0.0-2.0); Blast Cells 0; Eosinophils % (manual) 0 (0-7); Metamyelocytes % 0; Myelocytes % 0; Promyelocytes % 0; Reactive Lymphocytes 0
[2017-11-21 14:59] LABS: Alanine Aminotransferase 7 U/L (13-56); Albumin 3.8 g/dL (3.4-5.0); Alkaline Phosphatase 81 U/L (45-117); Anion Gap 27 (5-15); Aspartate Aminotransferase 12 U/L (15-37); BUN/Creatinine Ratio 16.3; Bilirubin, Total 0.2 mg/dL (0.2-1.0); Blood Urea Nitrogen 55 mg/dL (7-18); Calcium 8.9 mg/dL (8.5-10.1); Chloride 104 mmol/L (98-107); GFR African American 18 mL/min; GFR Non-African American 15 mL/min; Glucose 134 mg/dL (74-106); Magnesium 3.7 mg/dL (1.6-2.6); Potassium 3.1 mmol/L (3.5-5.1); Sodium 134 mmol/L (136-145); Total Protein 7.6 g/dL (6.4-8.2)
[2017-11-21 15:06] LABS: Carbon Dioxide 3 mmol/L (21-32)
[2017-11-21] MEDS ORDERED: SUCCINYLCHOLINE CHLORIDE 20 MG/ML 10ML VIAL IV ONE ×3 (15:06→15:45)
[2017-11-21] MEDS ORDERED: SODIUM BICARBONATE 8.4% INJ 50ML SYRINGE ONE ×2 (15:06→18:44)
[2017-11-21] MEDS ORDERED: ETOMIDATE (2MG/ML) 20ML VIAL IV ONE ×3 (15:06→15:45)
[2017-11-21] MEDS ORDERED: LEVOFLOXACIN 500MG 100 ML IV ONE (15:15)
[2017-11-21] MEDS ORDERED: SODIUM BICARBONATE 8.4 % INJ 50ML VIAL IV ONE ×4 (15:15→20:15)
[2017-11-21] MEDS ORDERED: NOREPINEPHRINE 8 MG/250ML KIT 250 ML IV ONE (15:23)
[2017-11-21] MEDS ORDERED: MIDAZOLAM DRIP 50 mg/50mL 50 ML IV ONE (15:27)
[2017-11-21 15:44] LABS: Lymphocytes % (manual) 6 (10.0-50.0); Monocytes % (manual) 5 (0-12)
[2017-11-21] MEDS ORDERED: SODIUM CHLORIDE 0.9% 2,000 ML IV ONE (15:45)
[2017-11-21] MEDS ORDERED: MIDAZOLAM HCL 5 MG/ML-1ML VIAL IV ONE (15:45)
[2017-11-21] MEDS ORDERED: PANTOPRAZOLE 40 MG/10 ML VIAL IV ONE (16:15)
[2017-11-21] MEDS ORDERED: NITROGLYCERIN 0.4 MG SL TAB SL PRN (16:15)
[2017-11-21] MEDS ORDERED: DEXTROSE (50%) 50ML SYRG IV PRN (16:15)
[2017-11-21] MEDS ORDERED: cefTRIAXone 1GM/10ml IVPUSH 10 ML IV ONE (16:15)
[2017-11-21] MEDS ORDERED: PROMETHAZINE HCL 25 MG/ML 1ML IV PRN (16:15)
[2017-11-21] MEDS ORDERED: MORPHINE SULFATE 4 MG/ML SYR/VIAL IV PRN ×3 (16:15)
[2017-11-21] MEDS ORDERED: LORazepam 2MG/ML-1ML VIAL IV PRN (16:15)
[2017-11-21 16:20] LABS: Urine Bacteria FEW /hpf (None Seen); Urine Blood 2+ /uL (Negative); Urine Specific Gravity 1.016 (1.001-1.035); Urine WBC 19 /hpf (0 - 5)
[2017-11-21] MEDS ORDERED: PIPERACILLIN-TAZOB 2.25GM 50 ML IV ONE (16:30)
[2017-11-21] MEDS: MIDAZOLAM DRIP 50 mg/50mL 50 ML IV SCH ×4 (16:30→23:37)
[2017-11-21] MEDS: NOREPINEPHRINE 8 MG/250ML KIT 250 ML IV SCH (16:30)
[2017-11-21 17:17] LABS: INR 1.01 (0.9-1.15); Partial Thromboplastin Time 27.2 sec (22.64-33.71)
[2017-11-21 17:39] LABS: Alcohol, Urine < 3.0 mg/dL (0-5); Amphetamine Screen, Urine NEGATIVE (NEGATIVE); Barbiturate Scree,Urine NEGATIVE (NEGATIVE); Benzodiazephine Screen, Urine NEGATIVE (NEGATIVE); Cannabinoid Screen, Urine NEGATIVE (NEGATIVE); Cocaine Screen, Urine NEGATIVE (NEGATIVE); Opiate Scree,Urine NEGATIVE (NEGATIVE); Phencyclidine Screen, Urine NEGATIVE (NEGATIVE)
[2017-11-21] MEDS: SODIUM BICARBONATE 50ML VIAL 50 ML in SOD CHL 0.45% 1,000 ML IV SCH (17:50)
[2017-11-21 18:05] VITALS: BP 99/58
[2017-11-21] MEDS: ACCU-CHEK COMFORT CURVE STRIP VI SCH (18:39)
[2017-11-21] MEDS: LINEZOLID 600MG/300ML 300 ML IV SCH (19:40)
[2017-11-21 20:08] VITALS: BP 95/52
[2017-11-21] MEDS: ENOXAPARIN SOD 30 MG/0.3 ML SYRINGE SC SCH (21:00)
[2017-11-21 21:02] LABS: Amylase 159 U/L (25-115); CRP High Sensitivity 0.66 mg/dL (< 0.3); Lipase 2617 U/L (73-393)
[2017-11-21] MEDS ORDERED: PROPOFOL 10 MG/ML 20 ML IV ONE (21:15)
[2017-11-21] MEDS: PROPOFOL 100 ML IV SCH (22:07)
[2017-11-21 22:18] VITALS: BP 95/58
[2017-11-21 23:35] VITALS: BP 95/58
[2017-11-22] VITALS (87 sets, daily range): BP systolic 13–173; BP diastolic 36–114
[2017-11-22] MEDS: NOREPINEPHRINE 8 MG/250ML KIT 250 ML IV SCH ×2 (00:22→08:06)
[2017-11-22] MEDS: PIPERACILLIN-TAZOB 2.25GM 50 ML IV SCH ×5 (00:56→23:40)
[2017-11-22] MEDS ORDERED: SODIUM BICARBONATE 8.4 % INJ 50ML VIAL IV ONE ×2 (01:00→17:30)
[2017-11-22] MEDS: MIDAZOLAM DRIP 50 mg/50mL 50 ML IV SCH ×3 (02:04→11:56)
[2017-11-22 04:41] LABS: Basophils # (auto) 0 uL; Basophils % (auto) 0.2 % (0.0-2.0); Eosinophils # (auto) 0 uL; Hematocrit 32.4 % (36.0-46.0); Hemoglobin 11.4 g/dL (12.2-16.2); Lymphocytes # (auto) 1.3 uL; Lymphocytes % (auto) 9.8 % (10.0-50.0); Mean Corpuscular Hemoglobin 32.4 pg (28.0-32.0); Mean Corpuscular Volume 92.4 fL (80.0-100.0); Monocytes # (auto) 1.6 uL; Monocytes % (auto) 12.5 % (0.0-12.0); Neutrophils % (auto) 77.5 % (37.0-80.0); Nucleated Red Blood Cells % 0.1 %; Platelet Count (auto) 175 10^3/uL (140-450); Red Blood Cells 3.51 10^6/uL (4.0-5.20); Red Cell Distribution Width 14.3 % (11.8-14.3); White Blood Cell 12.9 10^3/uL (4.4-10.8)
[2017-11-22] MEDS: SODIUM BICARBONATE 50ML VIAL 50 ML in SOD CHL 0.45% 1,000 ML IV SCH (04:43)
[2017-11-22] MEDS: fentaNYL Drip 2500mCg/250mlNS 250 ML IV SCH ×2 (04:47→20:13)
[2017-11-22 04:48] LABS: Alanine Aminotransferase < 6 U/L (13-56); Albumin 2.6 g/dL (3.4-5.0); Alkaline Phosphatase 53 U/L (45-117); Anion Gap 24 (5-15); Aspartate Aminotransferase 16 U/L (15-37); BUN/Creatinine Ratio 16.8; Bilirubin, Total 0.2 mg/dL (0.2-1.0); Blood Urea Nitrogen 59 mg/dL (7-18); Calcium 6.5 mg/dL (8.5-10.1); Carbon Dioxide 12 mmol/L (21-32); Chloride 107 mmol/L (98-107); Cholesterol 110 mg/dL (< 200); GFR African American 17 mL/min; GFR Non-African American 14 mL/min; Glucose 105 mg/dL (74-106); HDL Cholesterol 31 mg/dL (40-59); LDL Cholesterol 65 mg/dL (< 100); Sodium 143 mmol/L (136-145); Total Protein 5.2 g/dL (6.4-8.2); Triglycerides 89 mg/dL (< 150)
[2017-11-22 05:16] LABS: Potassium 1.9 mmol/L (3.5-5.1)
[2017-11-22] MEDS: ACCU-CHEK COMFORT CURVE STRIP VI SCH ×5 (05:36→23:40)
[2017-11-22] MEDS: POTASSIUM CHL 20MEQ/100ML 100 ML IV SCH ×6 (05:45→14:24)
[2017-11-22] MEDS: SOD CHL 0.9%/ KCL 20MEQ 1,000 ML IV SCH ×2 (05:45→14:33)
[2017-11-22] MEDS: LINEZOLID 600MG/300ML 300 ML IV SCH ×2 (06:30→18:32)
[2017-11-22] MEDS ORDERED: cefTRIAXone 1GM/10ml IVPUSH 10 ML IV SCH (09:00)
[2017-11-22] MEDS: PANTOPRAZOLE 40 MG/10 ML VIAL IV SCH (10:21)
[2017-11-22] MEDS ORDERED: SODIUM CHLORIDE 0.9% 1,000 ML IV ONE (11:30)
[2017-11-22] MEDS ORDERED: SODIUM CHLORIDE 0.9% 2,000 ML IV ONE (14:00)
[2017-11-22] MEDS: NOREPINEPHRINE BITARTRATE 32 MG in D5W 5% 218 ML IV SCH (14:20)
[2017-11-22] MEDS: ALBUMIN 25% 100 ML IV SCH ×2 (15:32→16:23)
[2017-11-22] MEDS ORDERED: SODIUM BICARBONATE 8.4% INJ 50ML SYRINGE ONE (17:05)
[2017-11-22] MEDS ORDERED: D5W 5% 1,000 ML IV SCH (17:30)
[2017-11-22] MEDS: SODIUM BICARBONATE 50ML VIAL 150 ML in D5W 5% 1,000 ML IV SCH (18:25)
[2017-11-22] MEDS ORDERED: DEXTROSE (50%) 50ML SYRG IV PRN (18:45)
[2017-11-22 18:49] LABS: BUN/Creatinine Ratio 14.2; Potassium 3.1 mmol/L (3.5-5.1)
[2017-11-22] MEDS ORDERED: POTASSIUM CHL 20MEQ/100ML 100 ML IV ONE ×2 (19:45→19:49)
[2017-11-22] MEDS: ENOXAPARIN SOD 30 MG/0.3 ML SYRINGE SC SCH (20:52)
[2017-11-22] MEDS: PROPOFOL 100 ML IV SCH (21:46)
[2017-11-22] MEDS: InsuLIN REG 1unit/0.01ml Soln (100units/ml) SC SCH (23:41)
[2017-11-23] VITALS (103 sets, daily range): BP systolic 82–158; BP diastolic 33–79
[2017-11-23] MEDS: MIDAZOLAM DRIP 50 mg/50mL 50 ML IV SCH ×3 (00:01→18:57)
[2017-11-23 05:05] LABS: Basophils # (auto) 0 uL; Basophils % (auto) 0.1 % (0.0-2.0); Eosinophils # (auto) 0 uL; Eosinophils % (auto) 0.1 % (0.0-7.0); Hematocrit 26.4 % (36.0-46.0); Hemoglobin 9.5 g/dL (12.2-16.2); Lymphocytes # (auto) 2.1 uL; Lymphocytes % (auto) 22.2 % (10.0-50.0); Mean Corpuscular Hemoglobin 33.1 pg (28.0-32.0); Mean Corpuscular Volume 92.1 fL (80.0-100.0); Monocytes % (auto) 10.8 % (0.0-12.0); Neutrophils # (auto) 6.4 uL; Neutrophils % (auto) 66.8 % (37.0-80.0); Nucleated Red Blood Cells % 0.2 %; Platelet Count (auto) 137 10^3/uL (140-450); Red Blood Cells 2.87 10^6/uL (4.0-5.20); Red Cell Distribution Width 14.2 % (11.8-14.3); White Blood Cell 9.6 10^3/uL (4.4-10.8)
[2017-11-23] MEDS: InsuLIN REG 1unit/0.01ml Soln (100units/ml) SC SCH ×4 (06:00→23:48)
[2017-11-23] MEDS: SODIUM BICARBONATE 50ML VIAL 150 ML in D5W 5% 1,000 ML IV SCH ×2 (06:01→16:12)
[2017-11-23] MEDS: PIPERACILLIN-TAZOB 2.25GM 50 ML IV SCH ×4 (06:02→23:48)
[2017-11-23] MEDS: ACCU-CHEK COMFORT CURVE STRIP VI SCH ×4 (06:02→23:48)
[2017-11-23 06:06] LABS: BUN/Creatinine Ratio 13.2; Calcium 5.9 mg/dL (8.5-10.1); Magnesium 2.3 mg/dL (1.6-2.6); Uric Acid 6.7 mg/dL (2.6-6.0)
[2017-11-23 06:08] LABS: Potassium 2.7 mmol/L (3.5-5.1)
[2017-11-23 06:11] LABS: Phosphorus 0.6 mg/dL (2.5-4.90)
[2017-11-23] MEDS: LINEZOLID 600MG/300ML 300 ML IV SCH ×2 (06:33→19:27)
[2017-11-23] MEDS ORDERED: ALBUMIN 25% 100 ML IV ONE (09:15)
[2017-11-23] MEDS: NOREPINEPHRINE BITARTRATE 32 MG in D5W 5% 218 ML IV SCH (09:27)
[2017-11-23] MEDS: fentaNYL Drip 2500mCg/250mlNS 250 ML IV SCH ×2 (09:28→21:19)
[2017-11-23] MEDS ORDERED: DOPamine 1600MCG/ML D5W 250 ML IV SCH (09:30)
[2017-11-23] MEDS: PANTOPRAZOLE 40 MG/10 ML VIAL IV SCH (09:32)
[2017-11-23] MEDS: DOPamine 1600MCG/ML D5W 250 ML IV SCH (10:03)
[2017-11-23] MEDS ORDERED: POTASSIUM PHOSPHATE 44 MEQ in D5W 5% 250 ML IV ONE (10:15)
[2017-11-23 14:02] LABS: Creatinine, Urine 59 mg/dL (30.0-125.0)
[2017-11-23] MEDS ORDERED: CARI-277 PO (16:33)
[2017-11-23] MEDS ORDERED: PROM25TA5 PO (16:33)
[2017-11-23] MEDS ORDERED: HYDR-4683 PO (16:35)
[2017-11-23] MEDS: POTASSIUM CHL 20MEQ/100ML 100 ML IV SCH ×3 (20:00→22:10)
[2017-11-23] MEDS ORDERED: POTASSIUM CHL 20MEQ/100ML 100 ML IV SCH (20:45)
[2017-11-23] MEDS: ENOXAPARIN SOD 30 MG/0.3 ML SYRINGE SC SCH (21:04)
[2017-11-23] MEDS: PROPOFOL 100 ML IV SCH (21:29)
[2017-11-24] VITALS (104 sets, daily range): BP systolic 82–161; BP diastolic 39–100
[2017-11-24] MEDS: POTASSIUM CHL 20MEQ/100ML 100 ML IV SCH ×5 (00:15→21:28)
[2017-11-24] MEDS: MIDAZOLAM DRIP 50 mg/50mL 50 ML IV SCH ×3 (01:00→19:29)
[2017-11-24 03:59] LABS: Basophils # (auto) 0 uL; Eosinophils # (auto) 0.1 uL; Hemoglobin 9.3 g/dL (12.2-16.2)
[2017-11-24 04:02] LABS: Basophils % (auto) 0.5 % (0.0-2.0); Eosinophils % (auto) 0.6 % (0.0-7.0); Hematocrit 25.4 % (36.0-46.0); Lymphocytes % (auto) 37.8 % (10.0-50.0); Mean Corpuscular Hemoglobin 32.7 pg (28.0-32.0); Mean Corpuscular Hgb Conc. 36.7 g/dL (32.0-36.0); Monocytes # (auto) 0.7 uL; Monocytes % (auto) 9.4 % (0.0-12.0); Neutrophils # (auto) 4.1 uL; Neutrophils % (auto) 51.7 % (37.0-80.0); Nucleated Red Blood Cells % 0.2 %; Platelet Count (auto) 131 10^3/uL (140-450); Red Blood Cells 2.86 10^6/uL (4.0-5.20); Red Cell Distribution Width 14.7 % (11.8-14.3); White Blood Cell 7.9 10^3/uL (4.4-10.8)
[2017-11-24 04:13] LABS: Albumin 2.7 g/dL (3.4-5.0); BUN/Creatinine Ratio 11.5; Bilirubin, Total 0.2 mg/dL (0.2-1.0); Total Protein 4.9 g/dL (6.4-8.2)
[2017-11-24 04:24] LABS: Calcium 5.5 mg/dL (8.5-10.1); Potassium 2.7 mmol/L (3.5-5.1)
[2017-11-24] MEDS: SODIUM BICARBONATE 50ML VIAL 150 ML in D5W 5% 1,000 ML IV SCH (04:30)
[2017-11-24] MEDS: InsuLIN REG 1unit/0.01ml Soln (100units/ml) SC SCH ×4 (05:59→23:43)
[2017-11-24] MEDS: PIPERACILLIN-TAZOB 2.25GM 50 ML IV SCH ×4 (05:59→23:43)
[2017-11-24] MEDS: ACCU-CHEK COMFORT CURVE STRIP VI SCH ×4 (05:59→23:43)
[2017-11-24] MEDS: LINEZOLID 600MG/300ML 300 ML IV SCH ×2 (06:52→19:15)
[2017-11-24] MEDS: NOREPINEPHRINE BITARTRATE 32 MG in D5W 5% 218 ML IV SCH (09:11)
[2017-11-24] MEDS: DOPamine 1600MCG/ML D5W 250 ML IV SCH (09:15)
[2017-11-24] MEDS ORDERED: CALCIUM GLUC 4.65meq/50ml D5AE 50 ML IV ONE (09:45)
[2017-11-24] MEDS ORDERED: POTASSIUM PHOSPHATE 44 MEQ in D5W 5% 250 ML IV ONE (09:45)
[2017-11-24] MEDS: PANTOPRAZOLE 40 MG/10 ML VIAL IV SCH ×2 (09:59→22:20)
[2017-11-24] MEDS: SODIUM BICARBONATE 50ML VIAL 50 ML in D5W/SOD CHL 0.45% 1,000 ML IV SCH ×2 (10:26→21:28)
[2017-11-24] MEDS: fentaNYL Drip 2500mCg/250mlNS 250 ML IV SCH (13:34)
[2017-11-24 19:20] LABS: Sodium Urine 50 mmol/L (40-220)
[2017-11-24] MEDS: ENOXAPARIN SOD 30 MG/0.3 ML SYRINGE SC SCH (21:00)
[2017-11-24] MEDS: PROPOFOL 100 ML IV SCH (21:46)
[2017-11-24] MEDS: FUROSEMIDE 100 MG/10ML VIAL IV SCH (23:44)
[2017-11-25] VITALS (106 sets, daily range): BP systolic 87–141; BP diastolic 38–91
[2017-11-25 03:58] LABS: Basophils # (auto) 0 uL; Basophils % (auto) 0.6 % (0.0-2.0); Eosinophils # (auto) 0.2 uL; Eosinophils % (auto) 2.8 % (0.0-7.0); Hematocrit 25.4 % (36.0-46.0); Hemoglobin 9.2 g/dL (12.2-16.2); Lymphocytes % (auto) 26.8 % (10.0-50.0); Mean Corpuscular Hemoglobin 32.8 pg (28.0-32.0); Mean Corpuscular Hgb Conc. 36.2 g/dL (32.0-36.0); Mean Corpuscular Volume 90.6 fL (80.0-100.0); Monocytes # (auto) 0.6 uL; Neutrophils # (auto) 4.5 uL; Neutrophils % (auto) 61.8 % (37.0-80.0); Platelet Count (auto) 125 10^3/uL (140-450); Red Blood Cells 2.81 10^6/uL (4.0-5.20); Red Cell Distribution Width 15.3 % (11.8-14.3); White Blood Cell 7.3 10^3/uL (4.4-10.8)
[2017-11-25 04:20] LABS: Magnesium 1.8 mg/dL (1.6-2.6); Phosphorus 3.1 mg/dL (2.5-4.90)
[2017-11-25 04:21] LABS: Albumin 2.6 g/dL (3.4-5.0)
[2017-11-25 04:25] LABS: Bilirubin, Total 0.2 mg/dL (0.2-1.0); Total Protein 4.9 g/dL (6.4-8.2)
[2017-11-25 04:51] LABS: Calcium 5.2 mg/dL (8.5-10.1)
[2017-11-25] MEDS: PIPERACILLIN-TAZOB 2.25GM 50 ML IV SCH ×4 (05:42→23:51)
[2017-11-25] MEDS: InsuLIN REG 1unit/0.01ml Soln (100units/ml) SC SCH ×4 (05:43→23:51)
[2017-11-25] MEDS: ACCU-CHEK COMFORT CURVE STRIP VI SCH ×4 (05:43→23:51)
[2017-11-25] MEDS: SODIUM BICARBONATE 50ML VIAL 50 ML in D5W/SOD CHL 0.45% 1,000 ML IV SCH ×2 (07:55→17:15)
[2017-11-25] MEDS: LINEZOLID 600MG/300ML 300 ML IV SCH ×2 (07:55→19:29)
[2017-11-25] MEDS: POTASSIUM CHL 20MEQ/100ML 100 ML IV SCH ×3 (08:43→11:15)
[2017-11-25] MEDS: DOPamine 1600MCG/ML D5W 250 ML IV SCH ×2 (09:15→19:29)
[2017-11-25] MEDS: PANTOPRAZOLE 40 MG/10 ML VIAL IV SCH ×2 (09:49→21:31)
[2017-11-25] MEDS: FUROSEMIDE 100 MG/10ML VIAL IV SCH (09:49)
[2017-11-25] MEDS: MIDAZOLAM DRIP 50 mg/50mL 50 ML IV SCH ×2 (09:50→18:30)
[2017-11-25] MEDS ORDERED: CALCIUM GLUC 4.65meq/50ml D5AE 50 ML IV ONE ×2 (10:00→11:00)
[2017-11-25] MEDS ORDERED: POTASSIUM CHL 10% (20 MEQ/15ML) 15ml ORAL SOLN GT ONE (10:00)
[2017-11-25] MEDS: ALBUTEROL SULF 2.5 MG/0.5ML(0.5%) NEB SOLN NEB SCH ×2 (11:09→18:35)
[2017-11-25] MEDS: NOREPINEPHRINE BITARTRATE 32 MG in D5W 5% 218 ML IV SCH (11:41)
[2017-11-25] MEDS: Nutren Pulmonary 1 Liter GT SCH (13:04)
[2017-11-25] MEDS: fentaNYL Drip 2500mCg/250mlNS 250 ML IV SCH (20:48)
[2017-11-25] MEDS: ENOXAPARIN SOD 30 MG/0.3 ML SYRINGE SC SCH (21:00)
[2017-11-25] MEDS: PROPOFOL 100 ML IV SCH (21:46)
[2017-11-26] VITALS (100 sets, daily range): BP systolic 86–143; BP diastolic 37–89
[2017-11-26] MEDS: ALBUTEROL SULF 2.5 MG/0.5ML(0.5%) NEB SOLN NEB SCH ×4 (00:08→18:21)
[2017-11-26] MEDS: MIDAZOLAM DRIP 50 mg/50mL 50 ML IV SCH ×4 (00:30→19:09)
[2017-11-26] MEDS: SODIUM BICARBONATE 50ML VIAL 50 ML in D5W/SOD CHL 0.45% 1,000 ML IV SCH (04:03)
[2017-11-26 04:10] LABS: Albumin 2.4 g/dL (3.4-5.0); Potassium 3.3 mmol/L (3.5-5.1)
[2017-11-26 04:12] LABS: Total Protein 5.2 g/dL (6.4-8.2)
[2017-11-26 04:15] LABS: Bilirubin, Total 0.2 mg/dL (0.2-1.0)
[2017-11-26 04:21] LABS: Calcium 5.4 mg/dL (8.5-10.1)
[2017-11-26] MEDS: PIPERACILLIN-TAZOB 2.25GM 50 ML IV SCH ×3 (05:44→17:49)
[2017-11-26] MEDS: InsuLIN REG 1unit/0.01ml Soln (100units/ml) SC SCH ×3 (05:44→17:23)
[2017-11-26] MEDS: ACCU-CHEK COMFORT CURVE STRIP VI SCH ×3 (05:45→17:50)
[2017-11-26] MEDS: fentaNYL Drip 2500mCg/250mlNS 250 ML IV SCH ×2 (06:16→17:25)
[2017-11-26] MEDS: LINEZOLID 600MG/300ML 300 ML IV SCH ×2 (08:07→20:29)
[2017-11-26] MEDS: NOREPINEPHRINE BITARTRATE 32 MG in D5W 5% 218 ML IV SCH ×2 (09:11→17:13)
[2017-11-26] MEDS: PANTOPRAZOLE 40 MG/10 ML VIAL IV SCH ×2 (10:25→22:00)
[2017-11-26] MEDS: FUROSEMIDE 100 MG/10ML VIAL IV SCH (10:25)
[2017-11-26] MEDS ORDERED: CALCIUM GLUC 4.65meq/50ml D5AE 50 ML IV ONE ×2 (10:30→11:30)
[2017-11-26] MEDS: POTASSIUM CHL 10% (20 MEQ/15ML) 15ml ORAL SOLN GT SCH (11:18)
[2017-11-26] MEDS: SODIUM BICARBONATE 50ML VIAL 100 ML in D5W 5% 1,000 ML IV SCH (12:45)
[2017-11-26] MEDS: ERGOCALCIFEROL 50,000 UNIT(1.25MG) CAP PO SCH (12:45)
[2017-11-26] MEDS: Nutren Pulmonary 1 Liter GT SCH (17:25)
[2017-11-26] MEDS ORDERED: POTASSIUM CHL 10% (20 MEQ/15ML) 15ml ORAL SOLN PO ONE (18:00)
[2017-11-26 20:29] LABS: Magnesium 1.7 mg/dL (1.6-2.6); Potassium 3.5 mmol/L (3.5-5.1)
[2017-11-26] MEDS: ENOXAPARIN SOD 30 MG/0.3 ML SYRINGE SC SCH (20:30)
[2017-11-26] MEDS: PROPOFOL 100 ML IV SCH (21:46)
[2017-11-27] VITALS (107 sets, daily range): BP systolic 73–151; BP diastolic 40–97
[2017-11-27] MEDS: PIPERACILLIN-TAZOB 2.25GM 50 ML IV SCH ×4 (00:09→18:12)
[2017-11-27] MEDS: ACCU-CHEK COMFORT CURVE STRIP VI SCH ×4 (00:09→18:12)
[2017-11-27] MEDS: SODIUM BICARBONATE 50ML VIAL 100 ML in D5W 5% 1,000 ML IV SCH ×2 (00:09→08:30)
[2017-11-27] MEDS: ALBUTEROL SULF 2.5 MG/0.5ML(0.5%) NEB SOLN NEB SCH ×5 (00:13→23:59)
[2017-11-27] MEDS: MIDAZOLAM DRIP 50 mg/50mL 50 ML IV SCH ×2 (02:11→05:00)
[2017-11-27] MEDS: fentaNYL Drip 2500mCg/250mlNS 250 ML IV SCH (04:02)
[2017-11-27 05:20] LABS: Basophils # (auto) 0 uL; Basophils % (auto) 0.6 % (0.0-2.0); Eosinophils # (auto) 0.3 uL; Eosinophils % (auto) 3.4 % (0.0-7.0); Hematocrit 24.7 % (36.0-46.0); Hemoglobin 8.8 g/dL (12.2-16.2); Lymphocytes # (auto) 1.9 uL; Lymphocytes % (auto) 23.7 % (10.0-50.0); Mean Corpuscular Hemoglobin 32.7 pg (28.0-32.0); Mean Corpuscular Hgb Conc. 35.6 g/dL (32.0-36.0); Mean Corpuscular Volume 91.9 fL (80.0-100.0); Monocytes # (auto) 0.8 uL; Monocytes % (auto) 10.3 % (0.0-12.0); Platelet Count (auto) 130 10^3/uL (140-450); Red Blood Cells 2.68 10^6/uL (4.0-5.20); Red Cell Distribution Width 15.2 % (11.8-14.3)
[2017-11-27 05:42] LABS: Albumin 2.3 g/dL (3.4-5.0); BUN/Creatinine Ratio 10.1; Magnesium 1.6 mg/dL (1.6-2.6); Potassium 3.1 mmol/L (3.5-5.1)
[2017-11-27 05:48] LABS: Bilirubin, Total 0.2 mg/dL (0.2-1.0)
[2017-11-27] MEDS: InsuLIN REG 1unit/0.01ml Soln (100units/ml) SC SCH ×4 (06:00→17:45)
[2017-11-27 06:12] LABS: Calcium 5.5 mg/dL (8.5-10.1)
[2017-11-27] MEDS: LINEZOLID 600MG/300ML 300 ML IV SCH ×2 (08:25→20:30)
[2017-11-27] MEDS: DOPamine 1600MCG/ML D5W 250 ML IV SCH (09:15)
[2017-11-27] MEDS: PANTOPRAZOLE 40 MG/10 ML VIAL IV SCH ×2 (09:59→20:31)
[2017-11-27] MEDS ORDERED: CALCIUM GLUC 4.65meq/50ml D5AE 50 ML IV ONE ×5 (11:00→15:00)
[2017-11-27] MEDS: MAGNESIUM SULFATE 1GM/100ML 100 ML IV SCH ×3 (11:27→13:30)
[2017-11-27] MEDS: FUROSEMIDE 100 MG/10ML VIAL IV SCH (11:28)
[2017-11-27] MEDS: POTASSIUM CHL 10% (20 MEQ/15ML) 15ml ORAL SOLN GT SCH (11:39)
[2017-11-27] MEDS: ERGOCALCIFEROL 50,000 UNIT(1.25MG) CAP PO SCH (11:40)
[2017-11-27] MEDS: DEXMEDETOMIDINE HCL 400 MCG in D5W 5% 96 ML IV SCH (11:58)
[2017-11-27] MEDS: SODIUM BICARBONATE 50ML VIAL 50 ML in D5W 5% 1,000 ML IV SCH ×2 (11:58→20:31)
[2017-11-27] MEDS: BRIMONIDINE TARTRATE OP SCH ×2 (14:00→22:00)
[2017-11-27] MEDS ORDERED: POTASSIUM CHL 10% (20 MEQ/15ML) 15ml ORAL SOLN PO ONE (18:00)
[2017-11-27] MEDS: ENOXAPARIN SOD 30 MG/0.3 ML SYRINGE SC SCH (20:30)
[2017-11-27] MEDS: PROPOFOL 100 ML IV SCH (20:48)
[2017-11-27] MEDS: TIMOLOL MAL 0.5% OPTH(EYE) SOL 5ML EACHEYE SCH (22:25)
[2017-11-28] VITALS (80 sets, daily range): BP systolic 89–170; BP diastolic 45–97
[2017-11-28] MEDS: PIPERACILLIN-TAZOB 2.25GM 50 ML IV SCH ×5 (01:28→18:31)
[2017-11-28] MEDS: ACCU-CHEK COMFORT CURVE STRIP VI SCH ×4 (01:29→18:00)
[2017-11-28 03:31] LABS: Magnesium 2.3 mg/dL (1.6-2.6); Phosphorus 2.9 mg/dL (2.5-4.90)
[2017-11-28] MEDS: PROPOFOL 100 ML IV SCH ×2 (04:19→08:58)
[2017-11-28] MEDS: InsuLIN REG 1unit/0.01ml Soln (100units/ml) SC SCH ×4 (06:00→18:37)
[2017-11-28] MEDS: BRIMONIDINE TARTRATE OP SCH ×3 (06:00→22:00)
[2017-11-28 06:11] LABS: Albumin 2.2 g/dL (3.4-5.0); BUN/Creatinine Ratio 10.2
[2017-11-28 06:17] LABS: Bilirubin, Total 0.2 mg/dL (0.2-1.0); Total Protein 5.1 g/dL (6.4-8.2)
[2017-11-28 06:18] LABS: Potassium 2.7 mmol/L (3.5-5.1)
[2017-11-28 06:19] LABS: Calcium 5.8 mg/dL (8.5-10.1)
[2017-11-28] MEDS ORDERED: CALCIUM GLUC 4.65meq/50ml D5AE 50 ML IV ONE ×4 (07:15→13:30)
[2017-11-28] MEDS ORDERED: POTASSIUM CHL 10% (20 MEQ/15ML) 15ml ORAL SOLN GT ONE ×2 (07:15→09:15)
[2017-11-28] MEDS: SODIUM BICARBONATE 50ML VIAL 50 ML in D5W 5% 1,000 ML IV SCH ×2 (08:00→13:00)
[2017-11-28] MEDS: DEXMEDETOMIDINE HCL 400 MCG in D5W 5% 96 ML IV SCH (08:15)
[2017-11-28] MEDS: fentaNYL Drip 2500mCg/250mlNS 250 ML IV SCH (08:58)
[2017-11-28] MEDS: FUROSEMIDE 100 MG/10ML VIAL IV SCH (08:58)
[2017-11-28] MEDS: LINEZOLID 600MG/300ML 300 ML IV SCH ×2 (09:06→20:00)
[2017-11-28] MEDS: TIMOLOL MAL 0.5% OPTH(EYE) SOL 5ML EACHEYE SCH ×2 (09:06→22:00)
[2017-11-28] MEDS: PANTOPRAZOLE 40 MG/10 ML VIAL IV SCH ×2 (09:06→22:00)
[2017-11-28] MEDS: NOREPINEPHRINE BITARTRATE 32 MG in D5W 5% 218 ML IV SCH (09:07)
[2017-11-28] MEDS: ALBUTEROL SULF 2.5 MG/0.5ML(0.5%) NEB SOLN NEB SCH ×3 (10:27→18:21)
[2017-11-28] MEDS: POTASSIUM CHL 10% (20 MEQ/15ML) 15ml ORAL SOLN NG SCH ×3 (13:45→22:00)
[2017-11-28] MEDS: MIDAZOLAM DRIP 50 mg/50mL 50 ML IV SCH (15:34)
[2017-11-28] MEDS ORDERED: MIDAZOLAM HCL 1MG/1ML-2 ML VIAL IV PRN (17:30)
[2017-11-28] MEDS: ENOXAPARIN SOD 30 MG/0.3 ML SYRINGE SC SCH (21:00)
[2017-11-29] VITALS (46 sets, daily range): BP systolic 99–153; BP diastolic 53–105
[2017-11-29 04:14] LABS: Magnesium 2.1 mg/dL (1.6-2.6)
[2017-11-29] MEDS: fentaNYL Drip 2500mCg/250mlNS 250 ML IV SCH (04:28)
[2017-11-29] MEDS: BRIMONIDINE TARTRATE OP SCH ×3 (06:00→21:59)
[2017-11-29] MEDS: ACCU-CHEK COMFORT CURVE STRIP VI SCH ×2 (06:00)
[2017-11-29] MEDS: PIPERACILLIN-TAZOB 2.25GM 50 ML IV SCH ×5 (06:00→23:58)
[2017-11-29] MEDS: InsuLIN REG 1unit/0.01ml Soln (100units/ml) SC SCH ×2 (06:00)
[2017-11-29] MEDS: SODIUM BICARBONATE 50ML VIAL 50 ML in D5W 5% 1,000 ML IV SCH ×2 (06:08→20:55)
[2017-11-29] MEDS: ALBUTEROL SULF 2.5 MG/0.5ML(0.5%) NEB SOLN NEB SCH ×4 (06:20→18:38)
[2017-11-29 07:15] LABS: Albumin 2.2 g/dL (3.4-5.0); BUN/Creatinine Ratio 9.6; Bilirubin, Total 0.3 mg/dL (0.2-1.0); Calcium 6.1 mg/dL (8.5-10.1); Potassium 3.1 mmol/L (3.5-5.1); Total Protein 5.2 g/dL (6.4-8.2)
[2017-11-29] MEDS: DEXMEDETOMIDINE HCL 400 MCG in D5W 5% 96 ML IV SCH (07:53)
[2017-11-29 08:14] LABS: Basophils # (auto) 0 uL; Basophils % (auto) 0.3 % (0.0-2.0); Eosinophils # (auto) 0.2 uL; Eosinophils % (auto) 2.1 % (0.0-7.0); Hematocrit 24.9 % (36.0-46.0); Hemoglobin 8.7 g/dL (12.2-16.2); Lymphocytes # (auto) 1.1 uL; Lymphocytes % (auto) 9.7 % (10.0-50.0); Mean Corpuscular Hemoglobin 32.4 pg (28.0-32.0); Mean Corpuscular Hgb Conc. 34.8 g/dL (32.0-36.0); Mean Corpuscular Volume 92.9 fL (80.0-100.0); Neutrophils # (auto) 9.2 uL; Neutrophils % (auto) 78.9 % (37.0-80.0); Platelet Count (auto) 139 10^3/uL (140-450); Red Blood Cells 2.68 10^6/uL (4.0-5.20); White Blood Cell 11.6 10^3/uL (4.4-10.8)
[2017-11-29] MEDS: NOREPINEPHRINE BITARTRATE 32 MG in D5W 5% 218 ML IV SCH (09:11)
[2017-11-29] MEDS: LINEZOLID 600MG/300ML 300 ML IV SCH ×2 (09:21→20:30)
[2017-11-29] MEDS: POTASSIUM CHL 10% (20 MEQ/15ML) 15ml ORAL SOLN GT SCH (09:21)
[2017-11-29] MEDS: TIMOLOL MAL 0.5% OPTH(EYE) SOL 5ML EACHEYE SCH ×2 (09:25→22:06)
[2017-11-29] MEDS: PANTOPRAZOLE 40 MG/10 ML VIAL IV SCH ×2 (09:25→21:58)
[2017-11-29] MEDS: FUROSEMIDE 100 MG/10ML VIAL IV SCH (09:25)
[2017-11-29] MEDS ORDERED: CALCIUM GLUC 4.65meq/50ml D5AE 50 ML IV ONE ×3 (09:30→11:00)
[2017-11-29] MEDS: POTASSIUM CHL 20MEQ/100ML 100 ML IV SCH ×4 (09:46→15:43)
[2017-11-29] MEDS: MIDAZOLAM DRIP 50 mg/50mL 50 ML IV SCH (15:34)
[2017-11-29] MEDS: ENOXAPARIN SOD 30 MG/0.3 ML SYRINGE SC SCH (21:00)
[2017-11-29] MEDS: PROPOFOL 100 ML IV SCH (21:46)
[2017-11-30] VITALS (37 sets, daily range): BP systolic 100–150; BP diastolic 47–95
[2017-11-30] MEDS: ALBUTEROL SULF 2.5 MG/0.5ML(0.5%) NEB SOLN NEB SCH ×4 (00:29→18:16)
[2017-11-30] MEDS: fentaNYL Drip 2500mCg/250mlNS 250 ML IV SCH (04:28)
[2017-11-30] MEDS: DEXMEDETOMIDINE HCL 400 MCG in D5W 5% 96 ML IV SCH (04:43)
[2017-11-30] MEDS: PIPERACILLIN-TAZOB 2.25GM 50 ML IV SCH ×3 (06:00→18:23)
[2017-11-30] MEDS: BRIMONIDINE TARTRATE OP SCH ×3 (06:00→21:54)
[2017-11-30] MEDS: LINEZOLID 600MG/300ML 300 ML IV SCH ×2 (09:03→20:24)
[2017-11-30] MEDS: NOREPINEPHRINE BITARTRATE 32 MG in D5W 5% 218 ML IV SCH (09:11)
[2017-11-30 09:52] LABS: Basophils # (auto) 0 uL; Basophils % (auto) 0.6 % (0.0-2.0); Eosinophils # (auto) 0.2 uL; Eosinophils % (auto) 2.4 % (0.0-7.0); Hematocrit 23.7 % (36.0-46.0); Hemoglobin 8.3 g/dL (12.2-16.2); Lymphocytes # (auto) 1.2 uL; Lymphocytes % (auto) 14.4 % (10.0-50.0); Mean Corpuscular Hemoglobin 32.1 pg (28.0-32.0); Mean Corpuscular Hgb Conc. 34.9 g/dL (32.0-36.0); Monocytes # (auto) 0.8 uL; Neutrophils # (auto) 6.2 uL; Neutrophils % (auto) 72.6 % (37.0-80.0); Platelet Count (auto) 145 10^3/uL (140-450); Red Blood Cells 2.58 10^6/uL (4.0-5.20); Red Cell Distribution Width 14.6 % (11.8-14.3); White Blood Cell 8.5 10^3/uL (4.4-10.8)
[2017-11-30] MEDS: POTASSIUM CHL 10% (20 MEQ/15ML) 15ml ORAL SOLN GT SCH (10:00)
[2017-11-30] MEDS: PANTOPRAZOLE 40 MG/10 ML VIAL IV SCH ×2 (10:00→21:51)
[2017-11-30] MEDS: TIMOLOL MAL 0.5% OPTH(EYE) SOL 5ML EACHEYE SCH ×2 (10:00→21:51)
[2017-11-30] MEDS ORDERED: FUROSEMIDE 40 MG/4 ML VIAL IV SCH (10:00)
[2017-11-30] MEDS ORDERED: SPIRONOLACTONE 25 MG TAB PO SCH (10:00)
[2017-11-30 10:08] LABS: Albumin 2.2 g/dL (3.4-5.0); BUN/Creatinine Ratio 10.2; Calcium 6.5 mg/dL (8.5-10.1)
[2017-11-30 10:12] LABS: Bilirubin, Total 0.3 mg/dL (0.2-1.0); Total Protein 5.3 g/dL (6.4-8.2)
[2017-11-30 10:23] LABS: Potassium 2.4 mmol/L (3.5-5.1)
[2017-11-30] MEDS: POTASSIUM CHL 20MEQ/100ML 100 ML IV SCH ×4 (11:00→19:45)
[2017-11-30] MEDS ORDERED: POTASSIUM CHL 20 Meq TABLET PO ONE (11:00)
[2017-11-30] MEDS: MIDAZOLAM DRIP 50 mg/50mL 50 ML IV SCH (15:34)
[2017-11-30] MEDS: ENOXAPARIN SOD 30 MG/0.3 ML SYRINGE SC SCH (20:31)
[2017-11-30] MEDS: PROPOFOL 100 ML IV SCH (21:46)
[2017-12-01] VITALS (30 sets, daily range): BP systolic 101–141; BP diastolic 45–97
[2017-12-01] MEDS ORDERED: POTASSIUM CHL 20 Meq TABLET PO ONE ×2 (00:15→08:15)
[2017-12-01] MEDS: DEXMEDETOMIDINE HCL 400 MCG in D5W 5% 96 ML IV SCH (01:40)
[2017-12-01] MEDS: fentaNYL Drip 2500mCg/250mlNS 250 ML IV SCH (01:41)
[2017-12-01 05:00] LABS: BUN/Creatinine Ratio 10.7; Calcium 6.1 mg/dL (8.5-10.1)
[2017-12-01 05:15] LABS: Potassium 2.8 mmol/L (3.5-5.1)
[2017-12-01] MEDS: PIPERACILLIN-TAZOB 2.25GM 50 ML IV SCH ×2 (05:37)
[2017-12-01] MEDS: BRIMONIDINE TARTRATE OP SCH ×3 (05:37→21:41)
[2017-12-01] MEDS ORDERED: SODIUM CHLORIDE 0.9 % NEB SOLN 3ML NEB ONE (06:10)
[2017-12-01] MEDS: LINEZOLID 600MG/300ML 300 ML IV SCH (08:00)
[2017-12-01] MEDS: SPIRONOLACTONE 25 MG TAB PO SCH ×2 (08:53→17:31)
[2017-12-01] MEDS: POTASSIUM CHL 10% (20 MEQ/15ML) 15ml ORAL SOLN GT SCH (10:00)
[2017-12-01] MEDS: PANTOPRAZOLE 40 MG/10 ML VIAL IV SCH ×2 (10:00→21:40)
[2017-12-01] MEDS: TIMOLOL MAL 0.5% OPTH(EYE) SOL 5ML EACHEYE SCH ×2 (10:00→21:40)
[2017-12-01] MEDS: DIPHENOXYLATE W/ATROPINE 2.5 MG TAB PO PRN (12:38)
[2017-12-01] MEDS: cefTRIAXone 1GM/10ml IVPUSH 10 ML IV SCH (12:39)
[2017-12-01 13:22] LABS: Calcium 6.3 mg/dL (8.5-10.1); Magnesium 1.7 mg/dL (1.6-2.6)
[2017-12-01 13:23] LABS: BUN/Creatinine Ratio 11.2
[2017-12-01] MEDS: POTASSIUM CHL 20MEQ/100ML 100 ML IV SCH ×2 (15:00→16:53)
[2017-12-01] MEDS ORDERED: POTASSIUM CHL 20MEQ/100ML 100 ML IV ONE (16:52)
[2017-12-01] MEDS: ALBUTEROL SULF 2.5 MG/0.5ML(0.5%) NEB SOLN NEB SCH ×3 (18:55→18:56)
[2017-12-01] MEDS: ENOXAPARIN SOD 30 MG/0.3 ML SYRINGE SC SCH (21:30)
[2017-12-01] MEDS: TEMAZEPAM 15 MG CAP PO PRN (21:39)
[2017-12-02] VITALS: BP 111/68
[2017-12-02 05:51] VITALS: BP 126/54
[2017-12-02] MEDS: SPIRONOLACTONE 25 MG TAB PO SCH ×2 (05:53→18:40)
[2017-12-02] MEDS: BRIMONIDINE TARTRATE OP SCH ×3 (05:55→22:00)
[2017-12-02 06:44] LABS: Basophils # (auto) 0.1 uL; Basophils % (auto) 1.1 % (0.0-2.0); Eosinophils # (auto) 0.3 uL; Lymphocytes # (auto) 1.8 uL; Neutrophils # (auto) 6.6 uL
[2017-12-02 06:47] LABS: Eosinophils % (auto) 3.3 % (0.0-7.0); Hematocrit 20.8 % (36.0-46.0); Hemoglobin 7.3 g/dL (12.2-16.2); Lymphocytes % (auto) 19.2 % (10.0-50.0); Mean Corpuscular Hemoglobin 32.9 pg (28.0-32.0); Mean Corpuscular Hgb Conc. 35.2 g/dL (32.0-36.0); Mean Corpuscular Volume 93.5 fL (80.0-100.0); Monocytes # (auto) 0.8 uL; Monocytes % (auto) 8.2 % (0.0-12.0); Neutrophils % (auto) 68.2 % (37.0-80.0); Platelet Count (auto) 140 10^3/uL (140-450); Red Blood Cells 2.23 10^6/uL (4.0-5.20); Red Cell Distribution Width 14.7 % (11.8-14.3); White Blood Cell 9.6 10^3/uL (4.4-10.8)
[2017-12-02 07:06] LABS: Albumin 2.3 g/dL (3.4-5.0); BUN/Creatinine Ratio 11.4; Calcium 6.8 mg/dL (8.5-10.1)
[2017-12-02 07:09] LABS: Bilirubin, Total 0.4 mg/dL (0.2-1.0); Total Protein 5.4 g/dL (6.4-8.2)
[2017-12-02 07:12] LABS: Potassium 2.9 mmol/L (3.5-5.1)
[2017-12-02] MEDS: ALBUTEROL SULF 2.5 MG/0.5ML(0.5%) NEB SOLN NEB SCH ×3 (07:13→18:00)
[2017-12-02 08:22] VITALS: BP 128/70
[2017-12-02] MEDS ORDERED: POTASSIUM CHL 20MEQ/100ML 100 ML IV SCH (09:30)
[2017-12-02] MEDS ORDERED: POTASSIUM CHL 20 Meq TABLET PO ONE ×2 (10:00→12:00)
[2017-12-02] MEDS: POTASSIUM CHL 20MEQ/100ML 100 ML IV SCH ×4 (11:14→18:40)
[2017-12-02] MEDS: TIMOLOL MAL 0.5% OPTH(EYE) SOL 5ML EACHEYE SCH ×2 (11:15→22:22)
[2017-12-02] MEDS: PANTOPRAZOLE 40 MG/10 ML VIAL IV SCH ×2 (11:16→22:22)
[2017-12-02] MEDS: cefTRIAXone 1GM/10ml IVPUSH 10 ML IV SCH (11:16)
[2017-12-02] MEDS: POTASSIUM CHL 10% (20 MEQ/15ML) 15ml ORAL SOLN GT SCH (11:16)
[2017-12-02 12:53] VITALS: BP 152/73
[2017-12-02 18:12] VITALS: BP 132/67
[2017-12-02] MEDS: ENOXAPARIN SOD 30 MG/0.3 ML SYRINGE SC SCH (22:00)
[2017-12-02 22:16] LABS: BUN/Creatinine Ratio 11.3; Calcium 6.8 mg/dL (8.5-10.1); Potassium 3.3 mmol/L (3.5-5.1)
[2017-12-03] VITALS (15 sets, daily range): BP systolic 108–150; BP diastolic 54–96
[2017-12-03] MEDS: TEMAZEPAM 15 MG CAP PO PRN (01:39)
[2017-12-03] MEDS: BRIMONIDINE TARTRATE OP SCH ×3 (06:00→21:35)
[2017-12-03] MEDS: SPIRONOLACTONE 25 MG TAB PO SCH ×2 (07:08→18:09)
[2017-12-03 09:11] LABS: Basophils # (auto) 0.1 uL; Basophils % (auto) 1.3 % (0.0-2.0); Eosinophils # (auto) 0.2 uL; Eosinophils % (auto) 1.7 % (0.0-7.0); Hematocrit 26.6 % (36.0-46.0); Hemoglobin 9.1 g/dL (12.2-16.2); Lymphocytes # (auto) 2.1 uL; Lymphocytes % (auto) 18.2 % (10.0-50.0); Mean Corpuscular Hemoglobin 30.5 pg (28.0-32.0); Mean Corpuscular Volume 89.7 fL (80.0-100.0); Monocytes # (auto) 0.9 uL; Neutrophils % (auto) 70.8 % (37.0-80.0); Platelet Count (auto) 152 10^3/uL (140-450); Red Blood Cells 2.97 10^6/uL (4.0-5.20); Red Cell Distribution Width 17.1 % (11.8-14.3); White Blood Cell 11.3 10^3/uL (4.4-10.8)
[2017-12-03 09:24] LABS: Albumin 2.5 g/dL (3.4-5.0); Calcium 7.3 mg/dL (8.5-10.1)
[2017-12-03 09:28] LABS: Bilirubin, Total 0.6 mg/dL (0.2-1.0); Total Protein 5.6 g/dL (6.4-8.2)
[2017-12-03 09:29] LABS: Potassium 2.8 mmol/L (3.5-5.1)
[2017-12-03] MEDS: cefTRIAXone 1GM/10ml IVPUSH 10 ML IV SCH (09:49)
[2017-12-03] MEDS: TIMOLOL MAL 0.5% OPTH(EYE) SOL 5ML EACHEYE SCH ×2 (10:00→21:35)
[2017-12-03] MEDS: CHOLESTYRAMINE 4 GM POWDER PO SCH ×4 (10:15→22:00)
[2017-12-03] MEDS: POTASSIUM CHL 20MEQ/100ML 100 ML IV SCH ×4 (10:15→21:36)
[2017-12-03] MEDS: POTASSIUM CHL 10% (20 MEQ/15ML) 15ml ORAL SOLN GT SCH (10:15)
[2017-12-03] MEDS ORDERED: POTASSIUM CHL 20 Meq TABLET PO ONE (11:00)
[2017-12-03] MEDS: ERGOCALCIFEROL 50,000 UNIT(1.25MG) CAP PO SCH (12:03)
[2017-12-03] MEDS: ALBUTEROL SULF 2.5 MG/0.5ML(0.5%) NEB SOLN NEB PRN (16:00)
[2017-12-03] MEDS: IPRATROPIUM BROM 0.5 MG/2.5ML INH SOL NEB PRN (16:00)
[2017-12-03] MEDS: DIPHENOXYLATE W/ATROPINE 2.5 MG TAB PO PRN (20:15)
[2017-12-03] MEDS: ENOXAPARIN SOD 30 MG/0.3 ML SYRINGE SC SCH ×2 (21:00→21:35)
[2017-12-04 02:53] VITALS: BP 119/60
[2017-12-04 05:22] VITALS: BP 134/86
[2017-12-04] MEDS: BRIMONIDINE TARTRATE OP SCH (06:00)
[2017-12-04] MEDS: CHOLESTYRAMINE 4 GM POWDER PO SCH ×3 (06:00→10:52)
[2017-12-04] MEDS: SPIRONOLACTONE 25 MG TAB PO SCH ×2 (06:27→17:45)
[2017-12-04 07:11] LABS: Calcium 7.3 mg/dL (8.5-10.1); Potassium 3.7 mmol/L (3.5-5.1)
[2017-12-04 07:13] LABS: BUN/Creatinine Ratio 8.2
[2017-12-04] MEDS: cefTRIAXone 1GM/10ml IVPUSH 10 ML IV SCH (08:43)
[2017-12-04 09:00] VITALS: BP 144/73
[2017-12-04] MEDS: TIMOLOL MAL 0.5% OPTH(EYE) SOL 5ML EACHEYE SCH ×2 (09:58→21:31)
[2017-12-04] MEDS: POTASSIUM CHL 10% (20 MEQ/15ML) 15ml ORAL SOLN GT SCH (09:58)
[2017-12-04] MEDS: IPRATROPIUM BROM 0.5 MG/2.5ML INH SOL NEB PRN (10:17)
[2017-12-04] MEDS: ALBUTEROL SULF 2.5 MG/0.5ML(0.5%) NEB SOLN NEB PRN (10:17)
[2017-12-04] MEDS: DIPHENOXYLATE W/ATROPINE 2.5 MG TAB PO PRN (12:21)
[2017-12-04 12:45] VITALS: BP 146/84
[2017-12-04 17:00] VITALS: BP 105/69
[2017-12-04] MEDS: traMADol HCL 50 MG TAB PO PRN (20:20)
[2017-12-04] MEDS: ENOXAPARIN SOD 30 MG/0.3 ML SYRINGE SC SCH (20:21)
[2017-12-04 22:00] VITALS: BP 118/71
[2017-12-05 05:40] VITALS: BP 140/81
[2017-12-05] MEDS: SPIRONOLACTONE 25 MG TAB PO SCH ×2 (05:44→17:44)
[2017-12-05] MEDS: traMADol HCL 50 MG TAB PO PRN (05:58)
[2017-12-05 06:20] LABS: Basophils # (auto) 0.2 uL; Basophils % (auto) 1.3 % (0.0-2.0); Eosinophils # (auto) 0.3 uL; Eosinophils % (auto) 2.3 % (0.0-7.0); Hematocrit 25.5 % (36.0-46.0); Hemoglobin 8.6 g/dL (12.2-16.2); Lymphocytes # (auto) 2.3 uL; Lymphocytes % (auto) 18.6 % (10.0-50.0); Mean Corpuscular Hemoglobin 30.6 pg (28.0-32.0); Mean Corpuscular Hgb Conc. 33.9 g/dL (32.0-36.0); Mean Corpuscular Volume 90.1 fL (80.0-100.0); Monocytes # (auto) 1.1 uL; Monocytes % (auto) 8.9 % (0.0-12.0); Neutrophils # (auto) 8.6 uL; Neutrophils % (auto) 68.9 % (37.0-80.0); Nucleated Red Blood Cells % 0.1 %; Platelet Count (auto) 188 10^3/uL (140-450); Red Blood Cells 2.83 10^6/uL (4.0-5.20); Red Cell Distribution Width 17.2 % (11.8-14.3); White Blood Cell 12.5 10^3/uL (4.4-10.8)
[2017-12-05] MEDS: IPRATROPIUM BROM 0.5 MG/2.5ML INH SOL NEB PRN ×2 (06:35→19:02)
[2017-12-05] MEDS: ALBUTEROL SULF 2.5 MG/0.5ML(0.5%) NEB SOLN NEB PRN ×2 (06:35→19:02)
[2017-12-05 06:36] LABS: Calcium 7.2 mg/dL (8.5-10.1); Potassium 3.1 mmol/L (3.5-5.1)
[2017-12-05 06:43] LABS: BUN/Creatinine Ratio 7.2
[2017-12-05 08:34] VITALS: BP 126/62
[2017-12-05] MEDS: TIMOLOL MAL 0.5% OPTH(EYE) SOL 5ML EACHEYE SCH ×2 (09:53→21:37)
[2017-12-05] MEDS: cefTRIAXone 1GM/10ml IVPUSH 10 ML IV SCH (09:53)
[2017-12-05] MEDS: CHOLESTYRAMINE 4 GM POWDER PO SCH ×2 (10:00→21:37)
[2017-12-05] MEDS: DIPHENOXYLATE W/ATROPINE 2.5 MG TAB PO PRN ×3 (11:34→23:54)
[2017-12-05] MEDS: POTASSIUM CHL 10% (20 MEQ/15ML) 15ml ORAL SOLN GT SCH (11:35)
[2017-12-05 13:00] VITALS: BP 150/89
[2017-12-05] MEDS ORDERED: HYDROcodone-ACET 5/325MG TAB PO ONE (16:30)
[2017-12-05 16:59] VITALS: BP 144/82
[2017-12-05] MEDS: ENOXAPARIN SOD 30 MG/0.3 ML SYRINGE SC SCH (21:36)
[2017-12-05] MEDS: BOOST PLUS 8 ounce PO SCH (21:37)
[2017-12-05] MEDS: TEMAZEPAM 15 MG CAP PO PRN ×3 (21:41→23:54)
[2017-12-05 22:05] VITALS: BP 119/68
[2017-12-06 05:27] VITALS: BP 126/56
[2017-12-06] MEDS: SPIRONOLACTONE 25 MG TAB PO SCH ×2 (05:56→18:00)
[2017-12-06] MEDS: cefTRIAXone 1GM/10ml IVPUSH 10 ML IV SCH (09:00)
[2017-12-06 09:14] VITALS: BP 139/68
[2017-12-06] MEDS: POTASSIUM CHL 10% (20 MEQ/15ML) 15ml ORAL SOLN GT SCH (10:00)
[2017-12-06] MEDS: CHOLESTYRAMINE 4 GM POWDER PO SCH (10:00)
[2017-12-06] MEDS: TIMOLOL MAL 0.5% OPTH(EYE) SOL 5ML EACHEYE SCH (10:00)
[2017-12-06] MEDS: BOOST PLUS 8 ounce PO SCH (11:18)
[2017-12-06 13:03] VITALS: BP 145/82
[2017-12-06 13:04] VITALS: BP 143/70
[2017-12-06 13:23] LABS: Basophils # (auto) 0.2 uL; Basophils % (auto) 1.8 % (0.0-2.0); Eosinophils # (auto) 0.2 uL; Eosinophils % (auto) 2.1 % (0.0-7.0); Hematocrit 26.4 % (36.0-46.0); Hemoglobin 8.8 g/dL (12.2-16.2); Lymphocytes # (auto) 2.4 uL; Lymphocytes % (auto) 27.9 % (10.0-50.0); Mean Corpuscular Hemoglobin 30.5 pg (28.0-32.0); Mean Corpuscular Hgb Conc. 33.4 g/dL (32.0-36.0); Mean Corpuscular Volume 91.3 fL (80.0-100.0); Monocytes # (auto) 0.6 uL; Monocytes % (auto) 7.1 % (0.0-12.0); Neutrophils # (auto) 5.1 uL; Neutrophils % (auto) 61.1 % (37.0-80.0); Nucleated Red Blood Cells % 0.2 %; Platelet Count (auto) 243 10^3/uL (140-450); Red Blood Cells 2.89 10^6/uL (4.0-5.20); Red Cell Distribution Width 17.3 % (11.8-14.3); White Blood Cell 8.4 10^3/uL (4.4-10.8)
[2017-12-06 13:40] LABS: BUN/Creatinine Ratio 7.1; Calcium 6.7 mg/dL (8.5-10.1); Potassium 3.1 mmol/L (3.5-5.1)
[2017-12-06] MEDS: ALBUTEROL SULF 2.5 MG/0.5ML(0.5%) NEB SOLN NEB PRN (15:46)
[2017-12-06] MEDS: IPRATROPIUM BROM 0.5 MG/2.5ML INH SOL NEB PRN (15:46)
[2017-12-06 16:48] VITALS: BP 139/71
== END 2017-12-06 19:26 | disposition home or self-care (01) | DRG 720 ==
LOC: EDBD 13:33 → ER 13:33 → TELE 13:34 → ICU WEST 11-22 03:50 → TELE-WESTW 12-02 00:05
PROVIDERS: ADMIT Internal Medicine; ATTEND Internal Medicine
PROC: 5A1955Z Respiratory Ventilation, Greater than 96 Consecutive Hours (ICD-10-PCS; principal; 2017-11-21)
PROC: 0BH17EZ Insertion of Endotracheal Airway into Trachea, Via Natural or Artificial Opening (ICD-10-PCS; 2017-11-21)
PROC: 02H633Z Insertion of Infusion Device into Right Atrium, Percutaneous Approach (ICD-10-PCS; 2017-11-21)
PROC: 30233N1 Transfusion of Nonautologous Red Blood Cells into Peripheral Vein, Percutaneous Approach (ICD-10-PCS; 2017-12-03)
DX: A41.51 Sepsis due to Escherichia coli [E. coli] (principal); J96.00 Acute respiratory failure, unspecified whether with hypoxia or hypercapnia; N17.0 Acute kidney failure with tubular necrosis; R65.21 Severe sepsis with septic shock; G93.41 Metabolic encephalopathy; J18.1 Lobar pneumonia, unspecified organism; J44.0 Chronic obstructive pulmonary disease with (acute) lower respiratory infection; E87.4 Mixed disorder of acid-base balance; E46 Unspecified protein-calorie malnutrition; N39.0 Urinary tract infection, site not specified; E87.1 Hypo-osmolality and hyponatremia; D64.9 Anemia, unspecified; E83.39 Other disorders of phosphorus metabolism; E83.42 Hypomagnesemia; E83.51 Hypocalcemia; E87.0 Hyperosmolality and hypernatremia; E87.6 Hypokalemia; E87.70 Fluid overload, unspecified; G89.29 Other chronic pain; K57.30 Diverticulosis of large intestine without perforation or abscess without bleeding; N12 Tubulo-interstitial nephritis, not specified as acute or chronic; N83.299 Other ovarian cyst, unspecified side; E66.9 Obesity, unspecified; M54.9 Dorsalgia, unspecified; B96.20 Unspecified Escherichia coli [E. coli] as the cause of diseases classified elsewhere; T39.395A Adverse effect of other nonsteroidal anti-inflammatory drugs [NSAID], initial encounter; Y92.89 Other specified places as the place of occurrence of the external cause; Z90.49 Acquired absence of other specified parts of digestive tract; Z81.1 Family history of alcohol abuse and dependence; Z82.49 Family history of ischemic heart disease and other diseases of the circulatory system; Z83.3 Family history of diabetes mellitus; Z86.73 Personal history of transient ischemic attack (TIA), and cerebral infarction without residual deficits; Z87.440 Personal history of urinary (tract) infections
CPT/HCPCS: 31500; 36415; 36556; 36600; 70450; 71045; 74176; 76775; 76856; 80048; 80053; 80061; 80307; 80329; 81001; 82150; 82270; 82306; 82550; 82570; 82805; 82962; 83036; 83605; 83690; 83735; 84100; 84132; 84300; 84443; 84484; 84550; 85007; 85025; 85027; 85610; 85652; 85730; 86141; 86850; 86900; 86901; 86920; 87040; 87045; 87070; 87081; 87086; 87088; 87186; 87205; 87400; 87493; 87899; 93005; 93306; 94002; 94003; 94640; 96365; 96375; 99291; A4565; C9113; J0330; J0610; J1815; J1956; J2250; J2543; J2704; J3010; J3480; J7060

== ENCOUNTER 2018-07-21 15:55 | Inpatient (IN) | payer MEDICAID ==
[~2018-07-21] VITALS: Ht 167.6 cm; Wt 77.3 kg
[~2018-07-21 15:55] MED LIST changes: -BRIM0.159 OP; +CARI-277 PO; +HYDR-4683 PO; -LEVO500T21 PO; -POTA20TA53 PO; +PROM25TA5 PO; -SODI650T PO; -TIMO0.5S3 EACHEYE; +TIMO0.5S38 EACHEYE
[2018-07-21] MEDS ORDERED: SODIUM CHLORIDE 0.9% 1,000 ML IV ONE ×2 (16:26→18:45)
[2018-07-21 17:23] LABS: White Blood Cell 18.4 10^3/uL (4.4-10.8)
[2018-07-21 17:27] LABS: Hematocrit 47.6 % (36.0-46.0); Hemoglobin 15.6 g/dL (12.2-16.2); Mean Corpuscular Hemoglobin 33.4 pg (28.0-32.0); Mean Corpuscular Hgb Conc. 32.8 g/dL (32.0-36.0); Mean Corpuscular Volume 101.6 fL (80.0-100.0); Platelet Count (auto) 203 10^3/uL (140-450); Red Blood Cells 4.69 10^6/uL (4.0-5.20); Red Cell Distribution Width 12.6 % (11.8-14.3)
[2018-07-21 17:38] LABS: INR 1.01 (0.9-1.15); Partial Thromboplastin Time 26.8 sec (23.78-33.04); Prothrombin Time 10.8 sec (9.27-12.13)
[2018-07-21 17:47] LABS: Albumin 3.7 g/dL (3.4-5.0); BUN/Creatinine Ratio 19.5; Bilirubin, Total 0.1 mg/dL (0.2-1.0); Calcium 7.6 mg/dL (8.5-10.1); Potassium 4.6 mmol/L (3.5-5.1); Total Protein 7.2 g/dL (6.4-8.2)
[2018-07-21 18:16] LABS: Basophils % (manual) 0 (0.0-2.0); Blast Cells 0; Metamyelocytes % 0; Myelocytes % 0; Promyelocytes % 0; Reactive Lymphocytes 0
[2018-07-21] MEDS ORDERED: LEVOFLOXACIN 750MG 150 ML IV ONE (18:45)
[2018-07-21 18:58] LABS: Band Neutrophils % (manual) 5; Eosinophils % (manual) 1 (0-7); Lymphocytes % (manual) 7 (10.0-50.0); Monocytes % (manual) 6 (0-12)
[2018-07-21] MEDS ORDERED: SODIUM BICARBONATE 8.4 % INJ 50ML VIAL IV ONE (19:15)
[2018-07-21 19:50] LABS: Urine Bacteria NONE SEEN /hpf (None Seen); Urine Blood 2+ /uL (Negative); Urine Specific Gravity 1.015 (1.001-1.035); Urine WBC 25 /hpf (0 - 5)
[2018-07-21 21:09] LABS: Urine Bacteria NONE SEEN /hpf (None Seen); Urine Blood 2+ /uL (Negative); Urine Specific Gravity 1.014 (1.001-1.035); Urine WBC 53 /hpf (0 - 5)
[2018-07-22] MEDS ORDERED: ACETAMINOPHEN 500 MG TAB PO PRN
[2018-07-22] MEDS ORDERED: SODIUM BICARBONATE 50ML VIAL 150 ML in D5W 5% 1,000 ML IV SCH ×2
[2018-07-22] MEDS ORDERED: ONDANSETRON HCL 4 MG/2 ML VIAL IV PRN
[2018-07-22] MEDS ORDERED: SODIUM BICARBONATE 8.4 % INJ 50ML VIAL IV ONE
[2018-07-22] MEDS ORDERED: VANCOMYCIN PER PHARMACY 0 MG IV SCH (00:15)
[2018-07-22] MEDS ORDERED: SODIUM BICARBONATE 8.4% INJ 50ML SYRINGE ONE (00:39)
[2018-07-22] MEDS ORDERED: VANCOMYCIN 1GM/250ML 250 ML IV ONE (00:45)
[2018-07-22] MEDS ORDERED: cefTRIAXone 1GM/10ml IVPUSH 10 ML IV ONE (00:45)
[2018-07-22 02:30] VITALS: BP 107/75
[2018-07-22 05:00] VITALS: BP 107/35
[2018-07-22 08:55] VITALS: BP 102/44
[2018-07-22 11:15] LABS: Hematocrit 34.1 % (36.0-46.0); Hemoglobin 11.8 g/dL (12.2-16.2); Mean Corpuscular Hemoglobin 33.3 pg (28.0-32.0); Mean Corpuscular Hgb Conc. 34.7 g/dL (32.0-36.0); Platelet Count (auto) 117 10^3/uL (140-450); Red Blood Cells 3.56 10^6/uL (4.0-5.20); Red Cell Distribution Width 12.4 % (11.8-14.3); White Blood Cell 10.1 10^3/uL (4.4-10.8)
[2018-07-22 11:23] LABS: Basophils % (manual) 0 (0.0-2.0); Blast Cells 0; Eosinophils % (manual) 0 (0-7); Promyelocytes % 0; Reactive Lymphocytes 0
[2018-07-22 11:36] LABS: BUN/Creatinine Ratio 19.4
[2018-07-22 11:38] LABS: Potassium 2.5 mmol/L (3.5-5.1)
[2018-07-22] MEDS: POTASSIUM CHL 20 Meq TABLET PO SCH ×2 (12:57→17:22)
[2018-07-22 13:00] VITALS: BP 100/37
[2018-07-22 13:12] LABS: Band Neutrophils % (manual) 5; Lymphocytes % (manual) 13 (10.0-50.0); Metamyelocytes % 2; Monocytes % (manual) 14 (0-12); Myelocytes % 1
[2018-07-22 13:26] LABS: Alcohol, Urine < 3.0 mg/dL (0-5); Amphetamine Screen, Urine NEGATIVE (NEGATIVE); Barbiturate Scree,Urine NEGATIVE (NEGATIVE); Benzodiazephine Screen, Urine NEGATIVE (NEGATIVE); Cannabinoid Screen, Urine NEGATIVE (NEGATIVE); Cocaine Screen, Urine NEGATIVE (NEGATIVE); Creatinine, Urine 29 mg/dL (30.0-125.0); Opiate Scree,Urine NEGATIVE (NEGATIVE); Phencyclidine Screen, Urine NEGATIVE (NEGATIVE); Protein, Urine 46.6 mg/dL (0.0-11.9); Sodium Urine 67 mmol/L (40-220)
[2018-07-22] MEDS: SODIUM BICARBONATE 50ML VIAL 100 ML in D5W 5% 1,000 ML IV SCH (14:23)
[2018-07-22 17:00] VITALS: BP 89/38
[2018-07-22] MEDS: HYDROcodone-ACET 5/325MG TAB PO PRN ×2 (18:31→20:22)
[2018-07-22 22:00] VITALS: BP 97/45
[2018-07-22] MEDS: MIRTAZAPINE 30 MG TAB PO SCH (22:04)
[2018-07-22] MEDS: cefTRIAXone 1GM/10ml IVPUSH 10 ML IV SCH (22:04)
[2018-07-22] MEDS: ZOLPIDEM TARTRATE 5 MG TAB PO PRN (23:28)
[2018-07-23] MEDS: HYDROcodone-ACET 5/325MG TAB PO PRN ×4 (00:39→14:01)
[2018-07-23] MEDS: SODIUM BICARBONATE 50ML VIAL 100 ML in D5W 5% 1,000 ML IV SCH ×2 (04:36→16:54)
[2018-07-23 05:00] VITALS: BP 113/55
[2018-07-23 06:32] LABS: Albumin 2.7 g/dL (3.4-5.0); BUN/Creatinine Ratio 17.5; Bilirubin, Total 0.2 mg/dL (0.2-1.0); Phosphorus 1.8 mg/dL (2.5-4.90); Total Protein 5.1 g/dL (6.4-8.2); Uric Acid 6.1 mg/dL (2.6-6.0)
[2018-07-23 06:45] LABS: Potassium 2.4 mmol/L (3.5-5.1)
[2018-07-23 06:46] LABS: Calcium 5.7 mg/dL (8.5-10.1)
[2018-07-23] MEDS ORDERED: POTASSIUM CHL 20 Meq TABLET PO ONE (07:15)
[2018-07-23] MEDS ORDERED: CALCIUM GLUC 4.65meq/50ml D5AE 50 ML IV ONE ×2 (07:15→10:30)
[2018-07-23 09:00] VITALS: BP 93/43
[2018-07-23] MEDS ORDERED: POTASSIUM PHOSPHATE 44 MEQ in D5W 5% 250 ML IV ONE (10:00)
[2018-07-23] MEDS ORDERED: ERGOCALCIFEROL 50,000 UNIT(1.25MG) CAP PO SCH (10:15)
[2018-07-23 11:55] LABS: BUN/Creatinine Ratio 17.1
[2018-07-23 11:59] LABS: Potassium 2.6 mmol/L (3.5-5.1)
[2018-07-23 13:00] VITALS: BP 108/50
[2018-07-23 17:00] VITALS: BP 110/60
[2018-07-23] MEDS: HYDROcodone-ACET 10/325MG TAB PO PRN (19:08)
[2018-07-23] MEDS: ZOLPIDEM TARTRATE 5 MG TAB PO PRN (21:27)
[2018-07-23] MEDS: MIRTAZAPINE 30 MG TAB PO SCH (21:27)
[2018-07-23] MEDS: cefTRIAXone 1GM/10ml IVPUSH 10 ML IV SCH (21:27)
[2018-07-23 21:30] VITALS: BP 100/35
[2018-07-24] MEDS: HYDROcodone-ACET 10/325MG TAB PO PRN ×6 (00:58→23:57)
[2018-07-24 05:00] VITALS: BP 128/57
[2018-07-24] MEDS: SODIUM BICARBONATE 50ML VIAL 100 ML in D5W 5% 1,000 ML IV SCH ×2 (08:05→20:22)
[2018-07-24 08:31] LABS: Albumin 2.6 g/dL (3.4-5.0); BUN/Creatinine Ratio 20.3; Bilirubin, Total 0.4 mg/dL (0.2-1.0); Total Protein 5.3 g/dL (6.4-8.2)
[2018-07-24 08:34] LABS: Potassium 2.3 mmol/L (3.5-5.1)
[2018-07-24 09:00] VITALS: BP 109/62
[2018-07-24] MEDS: POTASSIUM CHL 20MEQ/100ML 100 ML IV SCH ×4 (11:03→16:49)
[2018-07-24 13:00] VITALS: BP 117/68
[2018-07-24] MEDS: POTASSIUM CHL 20 Meq TABLET PO SCH ×3 (13:13→22:16)
[2018-07-24 17:00] VITALS: BP 120/70
[2018-07-24 20:00] VITALS: BP 122/56
[2018-07-24 22:00] VITALS: BP 122/56
[2018-07-24] MEDS: cefTRIAXone 1GM/10ml IVPUSH 10 ML IV SCH (22:16)
[2018-07-24] MEDS: MIRTAZAPINE 30 MG TAB PO SCH (22:16)
[2018-07-24] MEDS: ZOLPIDEM TARTRATE 5 MG TAB PO PRN (23:57)
[2018-07-25 05:00] VITALS: BP 111/64
[2018-07-25] MEDS: HYDROcodone-ACET 10/325MG TAB PO PRN (06:08)
[2018-07-25 07:21] LABS: Alanine Aminotransferase 13 U/L (13-56); Albumin 2.5 g/dL (3.4-5.0); Anion Gap 10 (5-15); Blood Urea Nitrogen 31 mg/dL (7-18); Calcium 6.5 mg/dL (8.5-10.1); Carbon Dioxide 23 mmol/L (21-32); Chloride 113 mmol/L (98-107); GFR African American 54 mL/min; GFR Non-African American 45 mL/min; Glucose 98 mg/dL (74-106); Potassium 3.8 mmol/L (3.5-5.1); Sodium 146 mmol/L (136-145)
[2018-07-25 07:24] LABS: Alkaline Phosphatase 52 U/L (45-117); Aspartate Aminotransferase 14 U/L (15-37); Bilirubin, Total 0.5 mg/dL (0.2-1.0); Total Protein 5.4 g/dL (6.4-8.2)
[2018-07-25 07:37] VITALS: BP_SYST 121; BP_SYST 132; BP_DIAS 67; BP_DIAS 72
[2018-07-25] MEDS: SODIUM BICARBONATE 50ML VIAL 100 ML in D5W 5% 1,000 ML IV SCH (07:45)
[2018-07-25 12:08] VITALS: BP 123/64
[2018-07-25 12:38] VITALS: BP 121/67
== END 2018-07-25 14:55 | disposition home or self-care (01) | DRG 871 ==
LOC: EDBD 15:55 → ER 15:55 → TELE 15:56 → TELE-EAST 07-22 01:35 → EAST 07-25 11:42
PROVIDERS: ADMIT Nurse Practitioner Family; ATTEND Internal Medicine Pulmonary Disease
DX: A41.9 Sepsis, unspecified organism (principal); N17.0 Acute kidney failure with tubular necrosis; N30.00 Acute cystitis without hematuria; E87.2 Acidosis; E87.1 Hypo-osmolality and hyponatremia; N18.4 Chronic kidney disease, stage 4 (severe); E44.0 Moderate protein-calorie malnutrition; G45.9 Transient cerebral ischemic attack, unspecified; K57.30 Diverticulosis of large intestine without perforation or abscess without bleeding; G89.29 Other chronic pain; M54.5 Low back pain; E87.8 Other disorders of electrolyte and fluid balance, not elsewhere classified; E87.6 Hypokalemia; E86.0 Dehydration; E55.9 Vitamin D deficiency, unspecified; N14.1 Nephropathy induced by other drugs, medicaments and biological substances; H54.7 Unspecified visual loss; T39.395A Adverse effect of other nonsteroidal anti-inflammatory drugs [NSAID], initial encounter; E83.51 Hypocalcemia; E83.39 Other disorders of phosphorus metabolism; M19.90 Unspecified osteoarthritis, unspecified site; Y92.89 Other specified places as the place of occurrence of the external cause; Z79.899 Other long term (current) drug therapy; Z86.73 Personal history of transient ischemic attack (TIA), and cerebral infarction without residual deficits; Z87.440 Personal history of urinary (tract) infections; Z90.49 Acquired absence of other specified parts of digestive tract; Z81.1 Family history of alcohol abuse and dependence; Z68.27 Body mass index [BMI] 27.0-27.9, adult
CPT/HCPCS: 36415; 36600; 51702; 71045; 74176; 80048; 80053; 80307; 80329; 81001; 82306; 82330; 82570; 82805; 83605; 83735; 83880; 83970; 84100; 84132; 84133; 84156; 84300; 84439; 84443; 84484; 84550; 85007; 85027; 85610; 85730; 87040; 87086; 87493; 93005; 94761; 96361; 96365; 96375; J0610; J0696; J1956; J3480; J7060

== ENCOUNTER 2018-10-15 12:48 | Inpatient (IN) | payer MEDICAID ==
[~2018-10-15] VITALS: Ht 165.1 cm; Wt 72.6 kg
[2018-10-15] MEDS ORDERED: SODIUM CHLORIDE 0.9% 1,000 ML IVB ONE ×2 (13:15)
[2018-10-15 14:18] LABS: Albumin 3.9 g/dL (3.4-5.0); Anion Gap 19 (5-15); Blood Urea Nitrogen 26 mg/dL (7-18); Calcium 8.8 mg/dL (8.5-10.1); Chloride 110 mmol/L (98-107); Glucose 86 mg/dL (74-106); Magnesium 3.2 mg/dL (1.6-2.6); Potassium 3.2 mmol/L (3.5-5.1); Sodium 135 mmol/L (136-145)
[2018-10-15 14:23] LABS: Basophils # (auto) 0.1 uL; Basophils % (auto) 0.6 % (0.0-2.0); Eosinophils # (auto) 0 uL; Eosinophils % (auto) 0.1 % (0.0-7.0); Hematocrit 48.3 % (36.0-46.0); Hemoglobin 15.7 g/dL (12.2-16.2); Lymphocytes # (auto) 1.6 uL; Lymphocytes % (auto) 13.2 % (10.0-50.0); Mean Corpuscular Hemoglobin 33.6 pg (28.0-32.0); Mean Corpuscular Hgb Conc. 32.5 g/dL (32.0-36.0); Mean Corpuscular Volume 103.3 fL (80.0-100.0); Monocytes # (auto) 1.3 uL; Monocytes % (auto) 10.9 % (0.0-12.0); Neutrophils % (auto) 75.2 % (37.0-80.0); Platelet Count (auto) 393 10^3/uL (140-450); Red Blood Cells 4.68 10^6/uL (4.0-5.20); Red Cell Distribution Width 15.5 % (11.8-14.3); White Blood Cell 11.9 10^3/uL (4.4-10.8)
[2018-10-15 14:24] LABS: Alanine Aminotransferase 9 U/L (13-56); Alkaline Phosphatase 75 U/L (45-117); Aspartate Aminotransferase 14 U/L (15-37); BUN/Creatinine Ratio 17.4; Bilirubin, Total 0.2 mg/dL (0.2-1.0); GFR African American 46 mL/min; GFR Non-African American 38 mL/min; Total Protein 7.6 g/dL (6.4-8.2)
[2018-10-15 14:30] LABS: INR 0.94 (0.9-1.15); Partial Thromboplastin Time 21.9 sec (23.78-33.04); Prothrombin Time 10.1 sec (9.27-12.13)
[2018-10-15 14:34] LABS: Carbon Dioxide 6 mmol/L (21-32)
[2018-10-15] MEDS ORDERED: ALBUTEROL SULF 2.5 MG/0.5ML(0.5%) NEB SOLN HHN ONE (16:00)
[2018-10-15] MEDS ORDERED: IPRATROPIUM BROM 0.5 MG/2.5ML INH SOL HHN ONE (16:00)
[2018-10-15] MEDS ORDERED: methylPREDNISolone SOD SUCC 125 MG/2 ML VL IV ONE (16:00)
[2018-10-15] MEDS ORDERED: cefTRIAXone 1GM/50ML D5W 50 ML IV ONE (18:00)
[2018-10-15] MEDS ORDERED: NITROGLYCERIN 0.4 MG SL TAB SL PRN (18:00)
[2018-10-15] MEDS ORDERED: ONDANSETRON HCL 4 MG/2 ML VIAL IV PRN (18:00)
[2018-10-15] MEDS ORDERED: SODIUM BICARBONATE 50ML VIAL 50 ML in SOD CHL 0.45% 1,000 ML IV SCH (18:00)
[2018-10-15] MEDS ORDERED: MORPHINE SULFATE 4 MG/ML SYR/VIAL IV PRN (18:00)
[2018-10-15] MEDS: metroNIDAZOLE 500MG/100ML 100 ML IV SCH (19:01)
[2018-10-15] MEDS ORDERED: SODIUM BICARBONATE 8.4 % INJ 50ML VIAL IV ONE ×2 (19:30)
[2018-10-15 20:29] VITALS: BP 107/84
[2018-10-15] MEDS: SODIUM BICARBONATE 50ML VIAL 150 ML in D5W 5% 1,000 ML IV SCH (21:00)
[2018-10-15] MEDS: TIMOLOL MAL 0.5% OPTH(EYE) SOL 5ML EACHEYE SCH (22:05)
[2018-10-16 03:52] LABS: Alcohol, Urine < 3.0 mg/dL (0-5); Amphetamine Screen, Urine NEGATIVE (NEGATIVE); Barbiturate Scree,Urine NEGATIVE (NEGATIVE); Benzodiazephine Screen, Urine NEGATIVE (NEGATIVE); Cannabinoid Screen, Urine NEGATIVE (NEGATIVE); Cocaine Screen, Urine NEGATIVE (NEGATIVE); Opiate Scree,Urine NEGATIVE (NEGATIVE); Phencyclidine Screen, Urine NEGATIVE (NEGATIVE)
[2018-10-16 04:18] LABS: Urine Bacteria FEW /hpf (None Seen); Urine Blood 1+ /uL (Negative); Urine Specific Gravity 1.011 (1.001-1.035); Urine WBC 10 /hpf (0 - 5)
[2018-10-16] MEDS: metroNIDAZOLE 500MG/100ML 100 ML IV SCH ×5 (06:10→23:56)
[2018-10-16] MEDS: SODIUM BICARBONATE 50ML VIAL 150 ML in D5W 5% 1,000 ML IV SCH ×2 (08:58→16:40)
[2018-10-16] MEDS: TIMOLOL MAL 0.5% OPTH(EYE) SOL 5ML EACHEYE SCH ×2 (09:18→22:32)
[2018-10-16] MEDS: cefTRIAXone 1GM/50ML D5W 50 ML IV SCH (09:18)
[2018-10-16 10:01] LABS: Hematocrit 36.5 % (36.0-46.0); Mean Corpuscular Hemoglobin 33.2 pg (28.0-32.0); Mean Corpuscular Hgb Conc. 32.9 g/dL (32.0-36.0); Mean Corpuscular Volume 100.8 fL (80.0-100.0); Platelet Count (auto) 243 10^3/uL (140-450); Red Blood Cells 3.62 10^6/uL (4.0-5.20); White Blood Cell 11.8 10^3/uL (4.4-10.8)
[2018-10-16 10:12] LABS: Basophils % (manual) 0 (0.0-2.0); Blast Cells 0; Eosinophils % (manual) 0 (0-7); Metamyelocytes % 0; Myelocytes % 0; Promyelocytes % 0; Reactive Lymphocytes 0
[2018-10-16] MEDS ORDERED: SUMAtriptan SUCCINATE 25 MG TAB PO PRN (10:15)
[2018-10-16 10:19] LABS: BUN/Creatinine Ratio 14.3; Calcium 6.5 mg/dL (8.5-10.1)
[2018-10-16 10:23] LABS: Creatine Kinase IFCC 95 U/L (26-192); Lactate Dehydrogenase 177 U/L (84-246)
[2018-10-16 10:26] LABS: Potassium 2.2 mmol/L (3.5-5.1)
[2018-10-16 10:45] LABS: Band Neutrophils % (manual) 6; Lymphocytes % (manual) 9 (10.0-50.0); Monocytes % (manual) 11 (0-12)
[2018-10-16] MEDS ORDERED: POTASSIUM CHLORIDE 20 MEQ, LIDOCAINE 1% (LOCAL ANESTH.) 2 ML in SODIUM CHL 0.9% 100 ML IV ONE ×2 (10:45→16:30)
[2018-10-16] MEDS ORDERED: POTASSIUM EFFERVESENT TAB 25 MEQ GT ONE ×2 (11:00→16:30)
[2018-10-16] MEDS: HYDROcodone-ACET 10/325MG TAB PO PRN ×2 (11:19→20:07)
[2018-10-16 16:02] LABS: Calcium 6.6 mg/dL (8.5-10.1)
[2018-10-16 16:20] LABS: Potassium 2.6 mmol/L (3.5-5.1)
[2018-10-16] MEDS: methylPREDNISolone SOD SUCC 40 MG/ML VL IV SCH (17:58)
[2018-10-16] MEDS: ALBUTEROL SULF 2.5 MG/0.5ML(0.5%) NEB SOLN NEB PRN (18:28)
[2018-10-16] MEDS: IPRATROPIUM BROM 0.5 MG/2.5ML INH SOL NEB PRN (18:28)
[2018-10-16 20:33] LABS: Calcium 6.3 mg/dL (8.5-10.1)
[2018-10-16 20:56] LABS: Potassium 2.7 mmol/L (3.5-5.1)
[2018-10-16] MEDS ORDERED: POTASSIUM CHL 20 Meq TABLET PO ONE (21:45)
[2018-10-16] MEDS: MORPHINE SULFATE 4 MG/ML SYR/VIAL IV PRN ×2 (22:39→22:50)
[2018-10-17] MEDS: methylPREDNISolone SOD SUCC 40 MG/ML VL IV SCH ×3 (00:43→12:25)
[2018-10-17] MEDS: LOPERAMIDE HCL 2 MG CAP PO PRN ×2 (04:30→13:27)
[2018-10-17] MEDS: HYDROcodone-ACET 10/325MG TAB PO PRN ×2 (04:30→08:22)
[2018-10-17] MEDS: ALBUTEROL SULF 2.5 MG/0.5ML(0.5%) NEB SOLN NEB PRN (04:59)
[2018-10-17] MEDS: IPRATROPIUM BROM 0.5 MG/2.5ML INH SOL NEB PRN (04:59)
[2018-10-17] MEDS: metroNIDAZOLE 500MG/100ML 100 ML IV SCH ×2 (06:07→13:05)
[2018-10-17] MEDS: SODIUM BICARBONATE 50ML VIAL 150 ML in D5W 5% 1,000 ML IV SCH (06:22)
[2018-10-17 06:44] LABS: Basophils # (auto) 0 uL; Eosinophils # (auto) 0 uL; Hematocrit 32.4 % (36.0-46.0); Hemoglobin 11.1 g/dL (12.2-16.2); Lymphocytes # (auto) 0.2 uL; Lymphocytes % (auto) 4.5 % (10.0-50.0); Mean Corpuscular Hgb Conc. 34.3 g/dL (32.0-36.0); Mean Corpuscular Volume 99.2 fL (80.0-100.0); Monocytes # (auto) 0.2 uL; Monocytes % (auto) 3.5 % (0.0-12.0); Nucleated Red Blood Cells % 0.2 %; Platelet Count (auto) 218 10^3/uL (140-450); Red Blood Cells 3.26 10^6/uL (4.0-5.20); White Blood Cell 5.4 10^3/uL (4.4-10.8)
[2018-10-17 06:48] LABS: BUN/Creatinine Ratio 13.6; Calcium 6.4 mg/dL (8.5-10.1)
[2018-10-17 06:53] LABS: Bilirubin, Total 0.1 mg/dL (0.2-1.0); Total Protein 5.8 g/dL (6.4-8.2)
[2018-10-17 07:01] LABS: Potassium 2.9 mmol/L (3.5-5.1)
[2018-10-17] MEDS: MORPHINE SULFATE 4 MG/ML SYR/VIAL IV PRN (08:23)
[2018-10-17] MEDS ORDERED: POTASSIUM CHLORIDE 60 MEQ, LIDOCAINE 1% (LOCAL ANESTH.) 6 ML in SODIUM CHL 0.9% 500 ML IV ONE (09:15)
[2018-10-17] MEDS: TIMOLOL MAL 0.5% OPTH(EYE) SOL 5ML EACHEYE SCH (10:00)
[2018-10-17] MEDS ORDERED: POTASSIUM EFFERVESENT TAB 25 MEQ PO SCH (10:00)
[2018-10-17] MEDS: cefTRIAXone 1GM/50ML D5W 50 ML IV SCH (10:41)
[2018-10-17] MEDS ORDERED: POTASSIUM EFFERVESENT TAB 25 MEQ PO ONE (13:00)
[2018-10-17 15:51] VITALS: BP 115/62
== END 2018-10-17 17:50 | disposition left against medical advice (07) | DRG 871 ==
LOC: ER 12:48 → EDBD 12:48 → TELE 17:58
PROVIDERS: ADMIT Nurse Practitioner Acute Care; ATTEND Internal Medicine
DX: A41.9 Sepsis, unspecified organism (principal); N17.0 Acute kidney failure with tubular necrosis; G92 Toxic encephalopathy; E44.0 Moderate protein-calorie malnutrition; N39.0 Urinary tract infection, site not specified; J45.901 Unspecified asthma with (acute) exacerbation; E87.1 Hypo-osmolality and hyponatremia; D64.9 Anemia, unspecified; E87.6 Hypokalemia; H40.9 Unspecified glaucoma; H54.8 Legal blindness, as defined in USA; I12.9 Hypertensive chronic kidney disease with stage 1 through stage 4 chronic kidney disease, or unspecified chronic kidney disease; R26.2 Difficulty in walking, not elsewhere classified; F41.9 Anxiety disorder, unspecified; J44.9 Chronic obstructive pulmonary disease, unspecified; N18.3 Chronic kidney disease, stage 3 (moderate); Z86.73 Personal history of transient ischemic attack (TIA), and cerebral infarction without residual deficits; Z87.440 Personal history of urinary (tract) infections; Z90.49 Acquired absence of other specified parts of digestive tract; Z53.21 Procedure and treatment not carried out due to patient leaving prior to being seen by health care provider
CPT/HCPCS: 36415; 36600; 70450; 71045; 74176; 76775; 80048; 80053; 80307; 80320; 81001; 82010; 82088; 82533; 82550; 82805; 83605; 83615; 83735; 83880; 83930; 84244; 84443; 84484; 85007; 85025; 85027; 85610; 85730; 87045; 87086; 87493; 87899; 93005; 94640; 94761; 96361; 96374; 96375; G0378; J0696; J2001; J2405; J3490

== ENCOUNTER 2018-11-18 01:11 | Inpatient (IN) | payer MEDICAID ==
[~2018-11-18] VITALS: Ht 160 cm; Wt 86.0 kg
[2018-11-18] MEDS ORDERED: ALBUTEROL SULF 2.5 MG/0.5ML(0.5%) NEB SOLN NEB ONE ×2 (01:45→02:00)
[2018-11-18] MEDS ORDERED: IPRATROPIUM BROM 0.5 MG/2.5ML INH SOL NEB ONE (01:45)
[2018-11-18] MEDS ORDERED: methylPREDNISolone SOD SUCC 125 MG/2 ML VL IV ONE (01:45)
[2018-11-18 02:58] LABS: Albumin 4.1 g/dL (3.4-5.0); Anion Gap 15 (5-15); Blood Urea Nitrogen 24 mg/dL (7-18); Calcium 8.4 mg/dL (8.5-10.1); Chloride 115 mmol/L (98-107); Glucose 103 mg/dL (74-106); Potassium 3.3 mmol/L (3.5-5.1); Sodium 137 mmol/L (136-145)
[2018-11-18 03:01] LABS: Alanine Aminotransferase 8 U/L (13-56); Alkaline Phosphatase 69 U/L (45-117); Aspartate Aminotransferase 11 U/L (15-37); BUN/Creatinine Ratio 17.4; Bilirubin, Total < 0.1 mg/dL (0.2-1.0); GFR African American 50 mL/min; GFR Non-African American 41 mL/min; Total Protein 7.7 g/dL (6.4-8.2)
[2018-11-18 03:08] LABS: Carbon Dioxide 7 mmol/L (21-32)
[2018-11-18] MEDS ORDERED: HYDROcodone-ACET 10/325MG TAB PO ONE (03:15)
[2018-11-18 03:30] LABS: Basophils # (auto) 0.1 uL; Basophils % (auto) 0.5 % (0.0-2.0); Eosinophils # (auto) 0 uL; Eosinophils % (auto) 0.1 % (0.0-7.0); Hematocrit 46.4 % (36.0-46.0); Hemoglobin 15.3 g/dL (12.2-16.2); Lymphocytes # (auto) 1.7 uL; Lymphocytes % (auto) 11.5 % (10.0-50.0); Mean Corpuscular Hemoglobin 32.5 pg (28.0-32.0); Mean Corpuscular Volume 98.4 fL (80.0-100.0); Monocytes # (auto) 0.7 uL; Monocytes % (auto) 4.7 % (0.0-12.0); Neutrophils # (auto) 12.1 uL; Neutrophils % (auto) 83.2 % (37.0-80.0); Nucleated Red Blood Cells % 0.1 %; Platelet Count (auto) 254 10^3/uL (140-450); Red Blood Cells 4.71 10^6/uL (4.0-5.20); Red Cell Distribution Width 14.3 % (11.8-14.3); White Blood Cell 14.6 10^3/uL (4.4-10.8)
[2018-11-18] MEDS ORDERED: SODIUM CHLORIDE 0.9% 1,000 ML IV ONE (03:30)
[2018-11-18 03:42] LABS: INR 0.93 (0.9-1.15); Partial Thromboplastin Time 25.7 sec (23.78-33.04)
[2018-11-18] MEDS ORDERED: LEVOFLOXACIN 500MG 100 ML IV ONE (04:00)
[2018-11-18 04:20] LABS: Urine Bacteria MANY /hpf (None Seen); Urine Blood 1+ /uL (Negative); Urine Hyaline Cast MOD /lpf (0 - 2); Urine Mucus FEW (None Seen); Urine Specific Gravity 1.019 (1.001-1.035); Urine WBC 184 /hpf (0 - 5); Urine WBC Clumps PRESENT /hpf (None Seen)
[2018-11-18 04:22] LABS: Amphetamine Screen, Urine NEGATIVE (NEGATIVE); Barbiturate Scree,Urine NEGATIVE (NEGATIVE); Benzodiazephine Screen, Urine NEGATIVE (NEGATIVE); Cannabinoid Screen, Urine NEGATIVE (NEGATIVE); Cocaine Screen, Urine NEGATIVE (NEGATIVE); Opiate Scree,Urine NEGATIVE (NEGATIVE); Phencyclidine Screen, Urine NEGATIVE (NEGATIVE)
[2018-11-18] MEDS ORDERED: SODIUM BICARBONATE 8.4 % INJ 50ML VIAL IV ONE (07:15)
[2018-11-18] MEDS ORDERED: ACETAMINOPHEN 500 MG TAB PO PRN (07:15)
[2018-11-18] MEDS ORDERED: VANCOMYCIN PER PHARMACY 0 MG IV SCH (07:30)
[2018-11-18] MEDS ORDERED: SODIUM BICARBONATE 50ML VIAL 150 ML in D5W 5% 1,000 ML IV SCH ×2 (07:30→10:15)
[2018-11-18] MEDS: ALBUTEROL SULF 2.5 MG/0.5ML(0.5%) NEB SOLN NEB PRN (07:54)
[2018-11-18] MEDS: IPRATROPIUM BROM 0.5 MG/2.5ML INH SOL NEB PRN (07:54)
[2018-11-18] MEDS: PIPERACILLIN-TAZOB 3.375GM 100 ML IV SCH ×3 (08:21→20:11)
[2018-11-18] MEDS: HYDROcodone-ACET 5/325MG TAB PO PRN ×3 (08:21→20:06)
[2018-11-18 09:20] LABS: Lactic Acid w/Reflex 2.5 mmol/L (0.4-2.0)
[2018-11-18 10:13] VITALS: BP 142/73
[2018-11-18] MEDS ORDERED: VANCOMYCIN 1GM/250ML 250 ML IV SCH (11:00)
[2018-11-18 11:14] LABS: Anion Gap 20 (5-15); BUN/Creatinine Ratio 20.3; Blood Urea Nitrogen 25 mg/dL (7-18); Calcium 7.4 mg/dL (8.5-10.1); Chloride 112 mmol/L (98-107); GFR African American 57 mL/min; GFR Non-African American 47 mL/min; Glucose 224 mg/dL (74-106); Sodium 141 mmol/L (136-145)
[2018-11-18 11:16] LABS: Lactic Acid w/Reflex 2.5 mmol/L (0.4-2.0)
[2018-11-18 11:21] LABS: Carbon Dioxide 9 mmol/L (21-32); Potassium 2.8 mmol/L (3.5-5.1)
[2018-11-18 11:30] LABS: Acetaminophen 2.2 ug/mL (10-30); Salicylate 2.7 mg/dL (2.8-20.0)
[2018-11-18] MEDS: POTASSIUM CHL 20MEQ/100ML 100 ML IV SCH ×5 (12:48→23:12)
[2018-11-18] MEDS: HEPARIN SODIUM (PORCINE) 5000 UNITS/ML 1ML VIAL SC SCH ×2 (14:00→22:26)
[2018-11-18 14:22] LABS: BUN/Creatinine Ratio 20.2; Calcium 7.6 mg/dL (8.5-10.1)
[2018-11-18 14:27] LABS: Potassium 2.8 mmol/L (3.5-5.1)
[2018-11-18] MEDS ORDERED: DEXTROSE (50%) 50ML SYRG IV PRN (15:15)
[2018-11-18] MEDS ORDERED: POTASSIUM CHL 20 Meq TABLET PO ONE ×2 (15:15→19:30)
[2018-11-18] MEDS: SODIUM BICARBONATE 50ML VIAL 150 ML in D5W 5% 1,000 ML IV SCH (16:00)
[2018-11-18] MEDS: SODIUM CHLORIDE 0.9% 1,000 ML IV SCH ×2 (16:00→23:57)
[2018-11-18] MEDS: ACCU-CHEK COMFORT CURVE STRIP VI SCH ×2 (17:00→22:23)
[2018-11-18] MEDS: InsuLIN REG 1unit/0.01ml Soln (100units/ml) SC SCH ×2 (17:00→22:00)
--- NOTE | 2018-11-18 18:41 | NUR ---
Respiratory note: ASSESSED PT FOR PRN MED NEB AT THIS TIME, PT DENIES SOB AT THIS TIME, NO RESP DISTRESS NOTED, NO TX INDICATED, PULSE OX 100% on 2.5L NC, HR 85, RR 20, BILATERAL BS CLEAR
[2018-11-18 19:09] LABS: BUN/Creatinine Ratio 19.4; Calcium 6.9 mg/dL (8.5-10.1)
[2018-11-18 19:11] LABS: Lactic Acid w/Reflex 2.8 mmol/L (0.4-2.0)
[2018-11-18 19:18] LABS: Potassium 2.5 mmol/L (3.5-5.1)
[2018-11-18] MEDS: ONDANSETRON HCL 4 MG/2 ML VIAL IV PRN (20:06)
[2018-11-19 00:05] VITALS: BP 105/60
--- NOTE | 2018-11-19 00:05 | NUR ---
Admit to [facility] admitted to [facility] via gurney on patient monitor. Patient transferred to bed, connected to unit monitoring, and weighed by bed scale. Patient oriented to Jennifer renteria RN, unit, room, bed, and unit policies regarding patient care and visiting hours. All questions and concerns addressed, patient verbalized understanding. NOTE: ALERT AND ORIENTED X4. NO SOB OR DISTRESS. ON ROOM AIR POX 100% IVS INFUSING BICARB, K RIDER, AND NS NO SKIN ISSUES. NULL CATH DRAINING URINE TO GRAVITY. VS STABLE.
[2018-11-19] MEDS ORDERED: ALBU1SYP PO (01:05)
[2018-11-19] MEDS: SODIUM BICARBONATE 50ML VIAL 150 ML in D5W 5% 1,000 ML IV SCH (01:45)
--- NOTE | 2018-11-19 02:05 | NUR ---
BM: Pt assisted to BSC for BM. Pt w/ moderate amount of liquid, dark brown stool. Pt assisted back to bed.
--- NOTE | 2018-11-19 02:21 | NUR ---
SLEEP: Pt unable to sleep. Pt requesting a "sleeping pill." Hospitalist paged and order obtained for Ambien 5mg PO, which pt takes at home. Pt medicated w/ Ambien 5mg PO by primary RN as per order.
[2018-11-19] MEDS: ZOLPIDEM TARTRATE 5 MG TAB PO PRN (02:22)
[2018-11-19] MEDS: PIPERACILLIN-TAZOB 3.375GM 100 ML IV SCH ×4 (02:25→20:35)
[2018-11-19 04:00] VITALS: BP 105/58
--- NOTE | 2018-11-19 04:45 | NUR ---
MORNING HYGIENE CARE SMALL SMEAR OF BLACK STOOL NOTED ON PAD. LORETA CARE PERFORMED. CLEANSED WITH SOAP AND WATER. PARTIAL LINEN CHANGE PERFORMED. PATIENT REPOSITIONED FOR COMFORT. TOLERATED IT WELL.
[2018-11-19] MEDS: ACCU-CHEK COMFORT CURVE STRIP VI SCH (05:40)
[2018-11-19] MEDS: InsuLIN REG 1unit/0.01ml Soln (100units/ml) SC SCH (05:40)
[2018-11-19] MEDS: HYDROcodone-ACET 5/325MG TAB PO PRN ×2 (05:41→10:01)
[2018-11-19 06:13] LABS: Basophils # (auto) 0 uL; Basophils % (auto) 0.5 % (0.0-2.0); Eosinophils # (auto) 0 uL; Eosinophils % (auto) 0.1 % (0.0-7.0); Hematocrit 26.8 % (36.0-46.0); Hemoglobin 9.4 g/dL (12.2-16.2); Lymphocytes # (auto) 1.8 uL; Lymphocytes % (auto) 26.9 % (10.0-50.0); Mean Corpuscular Hgb Conc. 34.9 g/dL (32.0-36.0); Mean Corpuscular Volume 94.6 fL (80.0-100.0); Monocytes # (auto) 0.7 uL; Monocytes % (auto) 10.5 % (0.0-12.0); Nucleated Red Blood Cells % 0.1 %; Platelet Count (auto) 169 10^3/uL (140-450); Red Blood Cells 2.83 10^6/uL (4.0-5.20); Red Cell Distribution Width 13.9 % (11.8-14.3); White Blood Cell 6.5 10^3/uL (4.4-10.8)
[2018-11-19 06:22] LABS: Alcohol, Urine < 3.0 mg/dL (0-5); Amphetamine Screen, Urine NEGATIVE (NEGATIVE); Barbiturate Scree,Urine NEGATIVE (NEGATIVE); Benzodiazephine Screen, Urine NEGATIVE (NEGATIVE); Cocaine Screen, Urine NEGATIVE (NEGATIVE); Creatinine, Urine 82 mg/dL (30.0-125.0); Opiate Scree,Urine POSITIVE (NEGATIVE); Phencyclidine Screen, Urine NEGATIVE (NEGATIVE); Sodium Urine 30 mmol/L (40-220)
[2018-11-19 06:24] LABS: Albumin 2.8 g/dL (3.4-5.0); BUN/Creatinine Ratio 15.3; Calcium 6.5 mg/dL (8.5-10.1)
[2018-11-19 06:26] LABS: Bilirubin, Total 0.5 mg/dL (0.2-1.0)
[2018-11-19 06:27] LABS: Cannabinoid Screen, Urine NEGATIVE (NEGATIVE)
[2018-11-19 06:36] LABS: Potassium 2.4 mmol/L (3.5-5.1)
--- NOTE | 2018-11-19 06:45 | NUR ---
HOSPITALIST PAGED REGARDING CRITICAL K LEVEL OF 2.4. AWAITING CALL BACK.
[2018-11-19] MEDS: HEPARIN SODIUM (PORCINE) 5000 UNITS/ML 1ML VIAL SC SCH ×3 (06:53→23:33)
[2018-11-19] MEDS: SODIUM CHLORIDE 0.9% 1,000 ML IV SCH (06:53)
--- NOTE | 2018-11-19 07:15 | NUR ---
END OF SHIFT REPORT GIVEN AND CARE ENDORSED TO [facility].
--- NOTE | 2018-11-19 07:20 | NUR ---
REPORT: REPORT RECEIVED FROM CULINARY ARTS TEACHER RN TO RESUME CARE OF PT.
[2018-11-19 07:57] VITALS: BP 120/54
--- NOTE | 2018-11-19 08:00 | NUR ---
OPEN: ASSESSMENT COMPLETE. SEE NURSING FLOW SHEET FOR UPDATED DETAILS. PT IS ALERT AND ORIENTED X4, FOLLOWS COMMANDS, ABLE TO VERBALIZE NEEDS AND UNDERSTANDING PLAN OF CARE AT TIME. ON ROOM AIR. NULL CATHETER IN PLACE DRAINING URINE TO GRAVITY. 22G IV TO RIGHT HAND SL AT TIME. 20G IV TO RIGHT FOREARM SL AT TIME. ALL MONITORS CONNECTED TO PT FOR CONTINUOUS MONITORING. SHARED POC WITH PT AND ABLE TO VERBALIZE UNDERSTANDING FOR SHIFT.
[2018-11-19 08:52] LABS: Basophils # (auto) 0 uL; Basophils % (auto) 0.5 % (0.0-2.0); Eosinophils # (auto) 0 uL; Eosinophils % (auto) 0.2 % (0.0-7.0); Hematocrit 27.8 % (36.0-46.0); Hemoglobin 9.9 g/dL (12.2-16.2); Lymphocytes % (auto) 32.3 % (10.0-50.0); Mean Corpuscular Hemoglobin 33.5 pg (28.0-32.0); Mean Corpuscular Hgb Conc. 35.8 g/dL (32.0-36.0); Mean Corpuscular Volume 93.7 fL (80.0-100.0); Monocytes # (auto) 0.6 uL; Monocytes % (auto) 9.9 % (0.0-12.0); Neutrophils # (auto) 3.5 uL; Neutrophils % (auto) 57.1 % (37.0-80.0); Platelet Count (auto) 174 10^3/uL (140-450); Red Blood Cells 2.97 10^6/uL (4.0-5.20); Red Cell Distribution Width 13.8 % (11.8-14.3); White Blood Cell 6.2 10^3/uL (4.4-10.8)
--- NOTE | 2018-11-19 09:00 | NUR ---
MD VISIT: DR. HENDERSON IN AT BEDSIDE. UPDATED ON PT STATUS AND AWARE OF CURRENT FINDINGS. OK TO CHANGE IV FLUIDS AND NEW ORDERS RECEIVED. PLAN TO CARRY OUT.
[2018-11-19 09:16] LABS: Albumin 2.9 g/dL (3.4-5.0); BUN/Creatinine Ratio 16.5; Calcium 6.9 mg/dL (8.5-10.1)
[2018-11-19 09:26] LABS: Bilirubin, Total 0.5 mg/dL (0.2-1.0); Total Protein 5.3 g/dL (6.4-8.2)
[2018-11-19 09:31] LABS: Potassium 2.4 mmol/L (3.5-5.1)
--- NOTE | 2018-11-19 09:37 | NUR ---
CRITICAL VALUE: RECEIVED CALL FROM LAB FOR CRITICAL LOW POTASSIUM LEVEL. NEW ORDERS RECEIVED AFTER SPEAKING TO DR. HENDERSON ABOUT RESULT.
[2018-11-19] MEDS ORDERED: POTASSIUM CHL 20 Meq TABLET PO ONE ×2 (09:45→16:15)
[2018-11-19] MEDS ORDERED: SODIUM BICARBONATE 50ML VIAL 150 ML in D5W 5% 1,000 ML IV SCH (09:45)
--- NOTE | 2018-11-19 10:00 | NUR ---
IV FLUIDS: RESUMED IV FLUIDS OF D5W WITH 3AMPS OF NAHCO3 AT 75ML/HR. PREVIOUS SHIFT HAD PAUSED IV FLUIDS FOR REPEAT LABS AFTER CRITICAL POTASSIUM RESULTED. NEW ORDERS PLACED AND DID RECEIVE CRITICAL LOW STILL. ALREADY AWARE.
--- NOTE | 2018-11-19 11:40 | NUR ---
SHORTNESS OF BREATH: PT STATING THAT SHE IS SHORT OF BREATH AT TIME. ALL VITAL SIGNS IN PLACE, O2 SATS WITHIN NORMAL RANGE, RESP. RATE 16, CLEAR BREATH SOUNDS. COOLED ROOM PT STATED THAT "IT WAS STUFFY AND MAKING IT HARD TO BREATH" AND APPLIED 2L NC. SAYS REMAIN 100% AT TIME. CONTINUE CARE FOR SHIFT.
[2018-11-19 11:50] VITALS: BP 113/44
--- NOTE | 2018-11-19 12:00 | NUR ---
SHORTNESS OF BREATH: PT NO LONGER HAVING SHORTNESS OF BREATH.
--- NOTE | 2018-11-19 13:01 | NUR ---
[facility]: CALLED [facility] REGARDING VQ SCAN. DO NOT HAVE STAFF AT THIS TIME TO TRANSPORT PT TO [facility]. PER [facility], HE WILL CHECK TO SEE IF THEY HAVE STAFF AND WILL GET BACK.
--- NOTE | 2018-11-19 14:30 | NUR ---
MD VISIT: DR. SALAS IN AT BEDSIDE. UPDATED ON PT STATUS AND NEW ORDERS RECEIVED. PLAN TO CARRY OUT.
--- NOTE | 2018-11-19 14:40 | NUR ---
NULL CATHETER: NULL CATHETER REMOVED PER PT REQUEST. PT IS ABLE TO AMBULATE TO BEDSIDE COMMODE AND REQUESTING TO BE REMOVED.
--- NOTE | 2018-11-19 14:50 | NUR ---
Respiratory note: PT SEEN FOR PRN MEDNEB ASSESSMENT NO TX INDICATED AT THIS TIME. SPO2 100% ON 2L NC HR81 RR 20 B/S CLEAR IN UPPER LOBES DIMINISHED IN BASES. PT AWARE TO CALL RN AND HAVE THEM PAGE RT IF THEY BECOME SOB.
--- NOTE | 2018-11-19 15:00 | NUR ---
IV: IV REMOVED EARLIER TO LEFT WRIST, INFILTRATED.
[2018-11-19 15:18] LABS: BUN/Creatinine Ratio 13.5; Calcium 7.5 mg/dL (8.5-10.1)
[2018-11-19 15:33] LABS: Potassium 2.7 mmol/L (3.5-5.1)
--- NOTE | 2018-11-19 15:33 | NUR ---
PAGE: PAGED DR. SALAS FOR CRITICAL POTASSIUM LEVEL.
--- NOTE | 2018-11-19 15:33 | NUR ---
CRITICAL VALUE: RECEIVED CALL FROM LAB FOR CRITICAL LOW POTASSIUM LEVEL OF 2.7. WILL NOTIFY
[2018-11-19 15:51] VITALS: BP 108/42
[2018-11-19] MEDS: HYDROcodone-ACET 10/325MG TAB PO PRN ×2 (15:55→20:36)
--- NOTE | 2018-11-19 15:56 | NUR ---
PAGE: PAGED DR. SHAIKH KING FOR CRITICAL POTASSIUM LEVEL.
--- NOTE | 2018-11-19 15:57 | NUR ---
UPDATE: PT HAS BEEN UP OUT OF BED MULTIPLE TIMES THROUGHOUT SHIFT THUS FAR FOR BEDSIDE COMMODE. PT HAS HAD 3 LIQUID BROWN/GREEN STOOL AND NOW ABLE TO URINATE AFTER NULL CATHETER WAS REMOVED.
--- NOTE | 2018-11-19 15:58 | NUR ---
BED ASSIGNMENT: RECEIVED BED ASSIGNMENT FOR ROOM 207.
--- NOTE | 2018-11-19 16:04 | NUR ---
PAGE: PAGED DR. HENDERSON FOR CRITICAL LOW POTASSIUM. DR. SALAS NOT RETURNING PAGE AT TIME. WAITING FOR CALL BACK.
--- NOTE | 2018-11-19 16:11 | NUR ---
MD CALL BACK: DR. HENDERSON CALLED BACK. NEW ORDERS RECEIVED TO CHANGE IV FLUIDS AND TO REPLACE POTASSIUM AGAIN. READ BACK AND VERIFIED ORDERS WITH MD. NEW BMP SCHEDULED FOR AM.
--- NOTE | 2018-11-19 17:05 | NUR ---
Received report from [facility] CRISTOFER Banegas. Yolande to give the Klor Con as ordered, the Potassium Chl drip getting prepared at Pharmacy. Waiting for the patient to be transferred to Room 207. Patient to be on isolation precautions for Hx of C-difficile. Stool specimen sent to Laboratory as per CRISTOFER Banegas.
--- NOTE | 2018-11-19 17:05 | NUR ---
REPORT: REPORT CALLED AND GIVEN TO FILIPE FOR ROOM 207.
--- NOTE | 2018-11-19 17:18 | NUR ---
TRANSFER: PT TRANSFERRED TO ROOM 207 VIA WHEELCHAIR, IV MEDICATIONS, BELONGINGS AND CONNECTED TO PORTABLE MEDICAL ASSISTANT PRN. REPORT GIVEN EARLIER. PT LEFT IN STABLE CONDITION AND AWARE OF TRANSFER TO ROOM 207. CALLED FAMILY AND MADE AWARE.
--- NOTE | 2018-11-19 17:28 | NUR ---
Received patient from [facility]. Patient awake, oriented x4. No acute distress noted. On isolation precautions for Hx of C-difficile. C-diff results pending.
[2018-11-19] MEDS: SODIUM BICARBONATE IV SCH (17:56)
[2018-11-19] MEDS: POTASSIUM CHLORIDE IV SCH (17:56)
[2018-11-19] MEDS: SOD CHL 0.45% IV SCH (17:56)
[2018-11-19] MEDS: ALBUTEROL SULF 2.5 MG/0.5ML(0.5%) NEB SOLN NEB PRN (19:14)
[2018-11-19] MEDS: IPRATROPIUM BROM 0.5 MG/2.5ML INH SOL NEB PRN (19:14)
--- NOTE | 2018-11-19 19:30 | NUR ---
Opening Shift Note Assumed care of patient, awake and alertx4. No S/S of distress/SOB or pain.Verbalized IV to right wrist is leaking. No pain or burning while infusing.No swelling at site. Flushed IV and did not notice leaking. Will monitor closely. Did not eat hardly any dinner. Verbalized no appetite. Bruising noted to bilateral upper extremities. Instructed on POC and to call for assist PRN, will continue to monitor for changes Q1hr and PRN.
[2018-11-19] MEDS: ONDANSETRON HCL 4 MG/2 ML VIAL IV PRN (20:36)
[2018-11-19 22:00] VITALS: BP 123/74
[2018-11-20] MEDS ORDERED: FAMOTIDINE 20 MG TAB PO ONE (00:30)
[2018-11-20] MEDS: ZOLPIDEM TARTRATE 5 MG TAB PO PRN ×2 (00:42→23:25)
[2018-11-20] MEDS: HYDROcodone-ACET 10/325MG TAB PO PRN ×4 (03:16→21:31)
[2018-11-20 04:59] VITALS: BP 125/69
[2018-11-20 05:48] LABS: Cholesterol 168 mg/dL (< 200); Triglycerides 108 mg/dL (< 150)
[2018-11-20 05:50] LABS: HDL Cholesterol 52 mg/dL (40-59); LDL Cholesterol 99 mg/dL (< 100)
[2018-11-20 05:58] LABS: BUN/Creatinine Ratio 11.9; Calcium 7.9 mg/dL (8.5-10.1)
[2018-11-20] MEDS: PIPERACILLIN-TAZOB 3.375GM 100 ML IV SCH ×4 (06:30→20:22)
[2018-11-20] MEDS: HEPARIN SODIUM (PORCINE) 5000 UNITS/ML 1ML VIAL SC SCH ×3 (06:55→21:31)
[2018-11-20] MEDS: POTASSIUM CHLORIDE IV SCH (07:02)
[2018-11-20] MEDS: SOD CHL 0.45% IV SCH (07:02)
[2018-11-20] MEDS: SODIUM BICARBONATE IV SCH (07:02)
[2018-11-20] MEDS: IPRATROPIUM BROM 0.5 MG/2.5ML INH SOL NEB PRN ×3 (07:38→19:31)
[2018-11-20] MEDS: ALBUTEROL SULF 2.5 MG/0.5ML(0.5%) NEB SOLN NEB PRN ×3 (07:38→19:31)
--- NOTE | 2018-11-20 07:45 | NUR ---
Patient in bed asleep, no acute distress noted.
[2018-11-20] MEDS ORDERED: POTASSIUM CHL 20 Meq TABLET PO ONE (08:15)
[2018-11-20 08:45] VITALS: BP 106/62
--- NOTE | 2018-11-20 09:06 | NUR ---
Patient stated she has back pain, at 8/10 level at this time. [place] 10/325 PO given as ordered.
--- NOTE | 2018-11-20 10:32 | NUR ---
Dr. Andrade came over. is aware of current Potassium level = 3.0. Patient had Klor Con PO as ordered. Dr. Andrade ordered Potassium level check at 1500 today.
--- NOTE | 2018-11-20 10:51 | NUR ---
Received a call from Laboratory that patient (+) C difficile.
--- NOTE | 2018-11-20 11:30 | NUR ---
PT REPORTS THAT SHE IS DOING FINE AND DOES NOT NEED P.T.
[2018-11-20] MEDS: SODIUM BICARBONATE 650 MG TAB PO SCH ×2 (11:40→21:31)
[2018-11-20] MEDS: FAMOTIDINE 20 MG TAB PO SCH (11:40)
[2018-11-20 11:55] LABS: Hepatitis A Ab IgM Negative; Hepatitis B Core IgM Negative; Hepatitis B Surface Antigen Negative (Negative); Hepatitis C Antibody Negative (Negative)
[2018-11-20 12:00] VITALS: BP 118/78
--- NOTE | 2018-11-20 12:15 | NUR ---
Dr. Andrade came over. to put in new orders for antibiotics. Patient (+) C-difficile.
--- NOTE | 2018-11-20 13:28 | NUR ---
Patient asked for [place] for pain. Explained to patient [place] 10/325 PO not due at this time. Patient refused Tylenol, will wait for [place] 10/325 when it's due.
--- NOTE | 2018-11-20 14:28 | NUR ---
Patient taken to [facility] via wheelchair.
[2018-11-20] MEDS: ONDANSETRON HCL 4 MG/2 ML VIAL IV PRN (15:21)
--- NOTE | 2018-11-20 15:21 | NUR ---
Patient stated she's in pain, nauseous. Nor[place]0 10/325 PO given for pain, Zofran IVP given for nausea.
[2018-11-20 16:47] VITALS: BP 118/72
[2018-11-20] MEDS: VANCOMYCIN HCL 125MG/5ML ORAL SOL GT SCH ×2 (18:36→21:31)
--- NOTE | 2018-11-20 19:30 | NUR ---
Opening Shift Note: A&Ox4, resting in bed. Contact precautions for CDIFF. Room air, pain level 8/10 for chronic back pain, and at baseline: uses a cane/walker prn; currently independent to BSC. Bed locked in lowest position, side rails up x3, and call light within reach. IV 22 g in right forearm IID inserted on 11/19/18. Skin intact; generalized bruising present. Patient state intermittent productive cough of clear/yellow thick sputum POC discussed and questions answered. Will continue to round prn.
--- NOTE | 2018-11-20 19:37 | NUR ---
RT NOTE: RT PAGED TO ROOM FOR PRN BREATHING TX. NO DISTRESS NOTED. SPO2 99% ON ROOM AIR, HR 84, RR 22, DIMINISHED BS NOTED. TX KAMILLE WELL. WILL CONT TO MONITOR PT.
[2018-11-20 21:54] VITALS: BP 111/59
--- NOTE | 2018-11-20 22:00 | NUR ---
Held 2200 heparin related to previous positive stool occult test.
[2018-11-21] MEDS: PIPERACILLIN-TAZOB 3.375GM 100 ML IV SCH ×3 (02:08→14:56)
[2018-11-21] MEDS: HYDROcodone-ACET 10/325MG TAB PO PRN ×4 (03:30→21:07)
[2018-11-21] MEDS: IPRATROPIUM BROM 0.5 MG/2.5ML INH SOL NEB PRN ×2 (03:38→21:28)
[2018-11-21] MEDS: ALBUTEROL SULF 2.5 MG/0.5ML(0.5%) NEB SOLN NEB PRN ×2 (03:38→21:28)
[2018-11-21 05:22] VITALS: BP 121/74
[2018-11-21] MEDS: HEPARIN SODIUM (PORCINE) 5000 UNITS/ML 1ML VIAL SC SCH (05:34)
[2018-11-21] MEDS: VANCOMYCIN HCL 125MG/5ML ORAL SOL GT SCH (05:34)
--- NOTE | 2018-11-21 05:36 | NUR ---
Held 0600 heparin related to previous positive stool occult test.
[2018-11-21 06:12] LABS: Hematocrit 27.4 % (36.0-46.0); Hemoglobin 9.5 g/dL (12.2-16.2); Mean Corpuscular Hemoglobin 33.2 pg (28.0-32.0); Mean Corpuscular Hgb Conc. 34.8 g/dL (32.0-36.0); Mean Corpuscular Volume 95.5 fL (80.0-100.0); Platelet Count (auto) 166 10^3/uL (140-450); Red Blood Cells 2.87 10^6/uL (4.0-5.20); Red Cell Distribution Width 14.2 % (11.8-14.3); White Blood Cell 5.5 10^3/uL (4.4-10.8)
[2018-11-21 06:15] LABS: Band Neutrophils % (manual) 0; Basophils % (manual) 0 (0.0-2.0); Blast Cells 0; Eosinophils % (manual) 0 (0-7); Metamyelocytes % 0; Myelocytes % 0; Promyelocytes % 0; Reactive Lymphocytes 0
[2018-11-21 06:42] LABS: Albumin 3.1 g/dL (3.4-5.0); BUN/Creatinine Ratio 13.5; Bilirubin, Total 0.6 mg/dL (0.2-1.0); Calcium 8.1 mg/dL (8.5-10.1); Total Protein 5.7 g/dL (6.4-8.2)
[2018-11-21 07:01] LABS: Potassium 2.8 mmol/L (3.5-5.1)
[2018-11-21 07:40] LABS: Lymphocytes % (manual) 71 (10.0-50.0); Monocytes % (manual) 7 (0-12)
--- NOTE | 2018-11-21 07:41 | NUR ---
Patient asked for breathing treatment.
--- NOTE | 2018-11-21 07:42 | NUR ---
Paged Respiratory Therapist for patient's breathing treatment.
--- NOTE | 2018-11-21 08:00 | NUR ---
Paged the Respiratory Therapist again. Patient waiting for breathing treatment PRN.
--- NOTE | 2018-11-21 08:10 | NUR ---
Respiratory Therapist said patient refused the breathing treatment at this time.
--- NOTE | 2018-11-21 08:30 | NUR ---
IV line on the right forearm/wrist area leaking noted. IV line removed, IV catheter intact, pressure dressing applied. Zosyn IV on hold at this time. Patient is hard stick. Will inform Charge Nurse.
--- NOTE | 2018-11-21 08:56 | NUR ---
Patient asked for [place]. Explained to patient next dose of [place] 10/325 not due at this time. Patient refused Tylenol.
[2018-11-21 09:00] VITALS: BP 119/71
[2018-11-21] MEDS ORDERED: POTASSIUM CHL 20 Meq TABLET PO ONE (09:00)
--- NOTE | 2018-11-21 09:30 | NUR ---
New IV line inserted at left hand, 22 gauge, intact and patent, in one attempt, by Charge Nurse Srinivas.
[2018-11-21] MEDS: SODIUM BICARBONATE 650 MG TAB PO SCH ×2 (09:46→21:05)
[2018-11-21] MEDS: FLORASTOR (S. BOULARDII) 250 MG CAP PO SCH (09:47)
[2018-11-21] MEDS: FAMOTIDINE 20 MG TAB PO SCH (09:47)
--- NOTE | 2018-11-21 09:49 | NUR ---
Patient stated her pain level at 9/10 at this time. [place] 10/325 PO given as ordered.
--- NOTE | 2018-11-21 10:25 | NUR ---
Dr. Thornton came over. made aware patient's Potassium level critically low at this time, patient wants to go home on Klor Con. Dr. Thornton ordered the patient needs to stay for another day, until the loose stools become at least formed a little.
--- NOTE | 2018-11-21 10:25 | NUR ---
Dr. Thornton ordered to continue giving Heparin SC as ordered.
--- NOTE | 2018-11-21 11:56 | NUR ---
Nutrition Assessment Notes Please see attached link fro complete assessment Est. Needs BW [id number] kcal (23-25 kcal/kgBW), 73-80 gms pro (1.0-1.1 gms/kgBW). Will continue to monitor pertinent labs and reassess nutrient needs prn Addendum: 11/21/18 at [address] Amended: Links added.
[2018-11-21] MEDS: VANCOMYCIN HCL 125MG/5ML ORAL SOL PO SCH ×3 (12:10→21:06)
[2018-11-21 13:00] VITALS: BP 127/76
--- NOTE | 2018-11-21 14:00 | NUR ---
Paged Respiratory Therapist for patient's breathing treatment.
--- NOTE | 2018-11-21 14:55 | NUR ---
Patient stated had a bowel movement yesterday, described the texture as loose to soft. Addendum: 11/21/18 at 1802 by Licha Ruiz RN she had
--- NOTE | 2018-11-21 15:40 | NUR ---
Patient stated her pain level at 8/10 at this time. [place] 10/325 PO given as ordered.
[2018-11-21 17:00] VITALS: BP 82/49
--- NOTE | 2018-11-21 19:00 | NUR ---
OB Gyne Consult called in.
[2018-11-21 20:00] VITALS: BP 126/73
--- NOTE | 2018-11-21 20:00 | NUR ---
Opening Shift Note: A&Ox4, resting in bed. Contact precautions for CDIFF. Room air, pain level 8/10 for chronic back pain, and at baseline: uses a cane/walker prn; currently independent to BSC. Bed locked in lowest position, side rails up x3, and call light within reach. IV 22 g in left hand IID inserted on 11/21/18. Skin intact; generalized bruising present. Patient state intermittent productive cough of clear thick sputum POC discussed and questions answered. Will continue to round prn.
[2018-11-21] MEDS: NITROFURANTOIN (MONO) 100 mg CAP PO SCH (21:06)
[2018-11-21 22:00] VITALS: BP 126/73
--- NOTE | 2018-11-21 22:00 | NUR ---
Page sent to production control coordinating clerk hospitalist in regards to 2200 heparin. Previous stool occult positive and heparin is ordered Q8H. Page sent to clarify administration.
--- NOTE | 2018-11-21 22:30 | NUR ---
2200 heparin held until return page from water pollution control inspector hospitalist.
--- NOTE | 2018-11-22 | NUR ---
Page to diamond sander hospitalist sent for possible hold on heparin related to positive stool occult.
--- NOTE | 2018-11-22 01:30 | NUR ---
Page return: Per environmental field professional hospitalist, hold heparin at this time related to previous positive stool occult.
[2018-11-22 05:05] VITALS: BP 115/64
--- NOTE | 2018-11-22 05:09 | NUR ---
0600 heparin held; see previous note.
[2018-11-22] MEDS: VANCOMYCIN HCL 125MG/5ML ORAL SOL PO SCH ×4 (05:26→22:45)
[2018-11-22] MEDS: ALBUTEROL SULF 2.5 MG/0.5ML(0.5%) NEB SOLN NEB PRN ×3 (05:45→22:49)
[2018-11-22] MEDS: IPRATROPIUM BROM 0.5 MG/2.5ML INH SOL NEB PRN ×3 (05:45→22:49)
[2018-11-22 06:04] LABS: Calcium 8.2 mg/dL (8.5-10.1); Magnesium 2.2 mg/dL (1.6-2.6)
[2018-11-22 06:06] LABS: BUN/Creatinine Ratio 14.5
[2018-11-22 06:15] LABS: Potassium 2.6 mmol/L (3.5-5.1)
[2018-11-22] MEDS ORDERED: POTASSIUM CHL 20 Meq TABLET PO ONE ×2 (06:45→13:15)
--- NOTE | 2018-11-22 06:45 | NUR ---
Critical potassium: 2.6 per lab; per complaint investigations officer hospitalist new orders for 40 meq potassium k rider and 60 meq ER PO potassium.
[2018-11-22] MEDS: POTASSIUM CHL 20MEQ/100ML 100 ML IV SCH ×2 (07:26→08:45)
--- NOTE | 2018-11-22 08:00 | NUR ---
RECEIVED PT RESTING IN BED, CALL LIGHT WITHIN REACH, PT DENIES ANY PAIN OR DISCOMFORT AT THIS TIME, WILL CONTINUE TO MONITOR PT.
[2018-11-22 08:30] VITALS: BP 155/119
[2018-11-22] MEDS: FLORASTOR (S. BOULARDII) 250 MG CAP PO SCH (09:56)
[2018-11-22] MEDS: FAMOTIDINE 20 MG TAB PO SCH (09:56)
[2018-11-22] MEDS: NITROFURANTOIN (MONO) 100 mg CAP PO SCH ×2 (09:56→22:45)
[2018-11-22] MEDS: SODIUM BICARBONATE 650 MG TAB PO SCH ×2 (09:57→22:45)
[2018-11-22] MEDS: HYDROcodone-ACET 10/325MG TAB PO PRN ×3 (10:14→22:46)
--- NOTE | 2018-11-22 11:30 | NUR ---
DR. SALAS AT UNIT TO SEE PT, DOCTOR INFORMED ABOUT PT REFUSING THE K-RIDERS AND THAT PT WAS GIVEN 60 MEQ PO, ORDERS RECEIVED FOR A REPEAT POTASSIUM LEVEL.
--- NOTE | 2018-11-22 11:38 | NUR ---
DR. SURESH / SALESPERSON HOSIERY AT BED SIDE TO SEE PT. DISCUSSED PLAN OF CARE WITH PT, PT EDUCTED BY DOCTOR TO FOLLOW UP WITH SALESPERSON HOSIERY OUT PT.
[2018-11-22 12:30] VITALS: BP 130/82
--- NOTE | 2018-11-22 14:00 | NUR ---
CALLED AND SPOKE TO DR. SALAS TO CLARIFY IF OK TO GIVE THE HEPARIN, PER DR. SALAS OK TO CONTINUE TO GIVE THE HEPARIN TO PT,
[2018-11-22 16:35] VITALS: BP 131/72
--- NOTE | 2018-11-22 19:55 | NUR ---
PT ASSESSED FOR PRN MED NEB TX. SPO2 99% ON RA, HR 78. PT DENIES ANY RESPIRATORY DISTRESS. NO TX INDICATED. PT IS AWARE TO HAVE RT PAGED IF TX NEEDED.
--- NOTE | 2018-11-22 20:00 | NUR ---
Opening Shift Note: A&Ox4, resting in bed. Contact precautions for CDIFF. Room air, pain level 7/10 for chronic back pain, and at baseline: uses a cane/walker prn; currently independent to BSC. Bed locked in lowest position, side rails up x3, and call light within reach. IV 22 g in left hand IID inserted on 11/21/18. Skin intact; generalized bruising present. Patient state intermittent productive cough of clear thick sputum POC discussed and questions answered. Will continue to round prn.
--- NOTE | 2018-11-22 20:03 | NUR ---
Page sent to sex offender treatment professional hospitalist in regards to 2200 heparin. Per DEC, medication is on back order. Will await page return for possible new orders.
--- NOTE | 2018-11-22 21:00 | NUR ---
Page return: Per production pattern maker hospitalist, no new medication orders at this time. Will wait for Dr. Shaikh del cid.
[2018-11-22] MEDS: HEPARIN SODIUM (PORCINE) 5000 UNITS/ML 1ML VIAL SC SCH (22:00)
[2018-11-22 22:30] VITALS: BP 108/59
[2018-11-23] MEDS: ZOLPIDEM TARTRATE 5 MG TAB PO PRN (00:30)
[2018-11-23] MEDS: HYDROcodone-ACET 10/325MG TAB PO PRN ×2 (04:30→10:43)
[2018-11-23 05:00] VITALS: BP 114/74
[2018-11-23] MEDS: VANCOMYCIN HCL 125MG/5ML ORAL SOL PO SCH ×3 (05:05→18:00)
[2018-11-23] MEDS: HEPARIN SODIUM (PORCINE) 5000 UNITS/ML 1ML VIAL SC SCH ×2 (05:06→14:00)
--- NOTE | 2018-11-23 05:11 | NUR ---
0600 heparin held related to medication on back order. Per remote operations producer hospitalist previous page return, Dr. Thornton is to make recommendation for new DVT proph.
[2018-11-23 05:29] LABS: Hematocrit 31.1 % (36.0-46.0); Hemoglobin 10.6 g/dL (12.2-16.2)
--- NOTE | 2018-11-23 06:50 | NUR ---
Respiratory note: PATIENT ASSESSED FOR MEDNEB TREATMENT. HR 74, RR 14, POX 97% ON ROOM AIR. BREATH SOUNDS DIMINISHED BILATERALLY. NO RESPIRATORY DISTRESS NOTED. NO TREATMENT GIVEN AT THIS TIME. PT ADVISED TO CALL IF INDICATED.
[2018-11-23 07:22] VITALS: BP 123/63
--- NOTE | 2018-11-23 08:00 | NUR ---
RECEIVED PT RESTING IN BED, CALL LIGHT WITHIN REACH, PT REPORTS GENERALIZED BACK PAIN OF 5/10, PT RECEIVED PAIN MEDICATION BY LOAN ORIGINATOR NURSE, PT WILL BE MEDICATED ORDERED, WILL CONTINUE TO MONITOR PT.
[2018-11-23] MEDS: IPRATROPIUM BROM 0.5 MG/2.5ML INH SOL NEB PRN (09:57)
[2018-11-23] MEDS: ALBUTEROL SULF 2.5 MG/0.5ML(0.5%) NEB SOLN NEB PRN (09:57)
[2018-11-23] MEDS: FLORASTOR (S. BOULARDII) 250 MG CAP PO SCH (10:42)
[2018-11-23] MEDS: FAMOTIDINE 20 MG TAB PO SCH (10:42)
[2018-11-23] MEDS: NITROFURANTOIN (MONO) 100 mg CAP PO SCH (10:42)
[2018-11-23] MEDS: SODIUM BICARBONATE 650 MG TAB PO SCH (10:43)
--- NOTE | 2018-11-23 11:30 | NUR ---
DR. SALAS AT BED SIDE TO SEE PT.
[2018-11-23 12:44] VITALS: BP 114/73
[2018-11-23] MEDS ORDERED: POTASSIUM CHL 20 Meq TABLET PO ONE (13:15)
[2018-11-23] MEDS ORDERED: VANC125PO PO (13:20)
[2018-11-23] MEDS ORDERED: SODI650T PO (13:20)
[2018-11-23] MEDS ORDERED: NITR100C44 PO (13:20)
[2018-11-23] MEDS ORDERED: FAM20T PO (13:23)
[2018-11-23 15:11] VITALS: BP 114/73
--- NOTE | 2018-11-23 15:58 | NUR ---
DR. Dakota HUDSON / GI AT BED SIDE TO SEE PT, DOCTOR DISCUSSED THE PLAN OF CARE, PER DR. Dakota HUDSON PT OK TO BE D/C TODAY AND FOR PT TO FOLLOW UP OUT PT WITH A GI THROUGH HER PCP FOR A COLONOSCOPY AND POSSIBLE EGD.
--- NOTE | 2018-11-23 17:45 | NUR ---
Discharge instructions given as ordered. Encourage to follow up with PMD as instructed. All questions and concerns addressed. Patient verbalized understanding. Medication reconciliation form completed and copy given to patient. No home medications held in Pharmacy, and no needed vaccines to be given. IV removed with catheter intact, pressure dressing applied. Telemetry unit returned to [facility].
--- NOTE | 2018-11-23 17:55 | NUR ---
Patient taken to vehicle via wheelchair with all personal belongings, accompanied by staff and family member. No distress noted at time of departure.
== END 2018-11-23 17:55 | disposition home or self-care (01) | DRG 371 ==
LOC: EDBD 01:11 → ER 01:17 → OVERFLOW 07:14 → DOU IN ICU 23:42 → TELE-CENTR 11-19 17:25
PROVIDERS: ADMIT Nurse Practitioner Family; ATTEND Internal Medicine
DX: A04.72 Enterocolitis due to Clostridium difficile, not specified as recurrent (principal); N17.0 Acute kidney failure with tubular necrosis; E44.1 Mild protein-calorie malnutrition; E87.2 Acidosis; N30.01 Acute cystitis with hematuria; B95.2 Enterococcus as the cause of diseases classified elsewhere; D63.8 Anemia in other chronic diseases classified elsewhere; E87.6 Hypokalemia; G89.29 Other chronic pain; H54.62 Unqualified visual loss, left eye, normal vision right eye; I12.9 Hypertensive chronic kidney disease with stage 1 through stage 4 chronic kidney disease, or unspecified chronic kidney disease; N83.202 Unspecified ovarian cyst, left side; J45.909 Unspecified asthma, uncomplicated; N18.3 Chronic kidney disease, stage 3 (moderate); M54.9 Dorsalgia, unspecified; Z79.891 Long term (current) use of opiate analgesic; Z86.73 Personal history of transient ischemic attack (TIA), and cerebral infarction without residual deficits; Z87.440 Personal history of urinary (tract) infections; Z91.19 Patient's noncompliance with other medical treatment and regimen; Z81.1 Family history of alcohol abuse and dependence; Z84.89 Family history of other specified conditions; Z90.49 Acquired absence of other specified parts of digestive tract; Z68.33 Body mass index [BMI] 33.0-33.9, adult
CPT/HCPCS: 36415; 36600; 51702; 71045; 76856; 78582; 80048; 80053; 80061; 80074; 80307; 80329; 81001; 82270; 82570; 82805; 82962; 83036; 83520; 83540; 83550; 83605; 83735; 83880; 84132; 84133; 84300; 84443; 84484; 85007; 85014; 85018; 85025; 85027; 85379; 85610; 85652; 85730; 86038; 86160; 86256; 87040; 87081; 87086; 87088; 87186; 87493; 93005; 94640; 96361; 96365; 96367; 96375; A6257; G0378; J1642; J1956; J2405; J2543; J3480

== ENCOUNTER 2019-08-06 21:21 | Inpatient (IN) | payer OTHER, MEDICAID ==
[~2019-08-06] VITALS: Ht 165.1 cm; Wt 80.5 kg
[~2019-08-06 21:21] MED LIST changes: +ALBU1SYP PO; +FAM20T PO; -HYDR-4683 PO; +HYDR-4833 PO; +NITR100C44 PO; +SODI650T PO; -TIMO0.5S38 EACHEYE; +TIMO0.5S66 EACHEYE; +VANC125PO PO
[2019-08-06 22:16] LABS: Basophils # (auto) 0 uL; Basophils % (auto) 0.2 % (0.0-2.0); Eosinophils # (auto) 0.1 uL; Eosinophils % (auto) 0.4 % (0.0-7.0); Hematocrit 51.5 % (36.0-46.0); Hemoglobin 16.7 g/dL (12.2-16.2); Lymphocytes # (auto) 1.4 uL; Lymphocytes % (auto) 8.3 % (10.0-50.0); Mean Corpuscular Hgb Conc. 32.4 g/dL (32.0-36.0); Mean Corpuscular Volume 98.9 fL (80.0-100.0); Monocytes # (auto) 1.4 uL; Monocytes % (auto) 7.9 % (0.0-12.0); Neutrophils # (auto) 14.3 uL; Neutrophils % (auto) 83.2 % (37.0-80.0); Nucleated Red Blood Cells % 0.1 %; Platelet Count (auto) 262 10^3/uL (140-450); Red Cell Distribution Width 14.9 % (11.8-14.3); White Blood Cell 17.1 10^3/uL (4.4-10.8)
[2019-08-06 22:33] LABS: Anion Gap 24 (5-15); BUN/Creatinine Ratio 13.8; Blood Urea Nitrogen 42 mg/dL (7-18); Calcium 8.1 mg/dL (8.5-10.1); Chloride 105 mmol/L (98-107); GFR African American 20 mL/min; GFR Non-African American 17 mL/min; Glucose 132 mg/dL (74-106); Magnesium 3.1 mg/dL (1.6-2.6); Potassium 3.8 mmol/L (3.5-5.1); Sodium 133 mmol/L (136-145)
[2019-08-06 22:37] LABS: Alanine Aminotransferase 9 U/L (13-56); Alkaline Phosphatase 77 U/L (45-117); Aspartate Aminotransferase 16 U/L (15-37); Bilirubin, Total 0.1 mg/dL (0.2-1.0); Total Protein 7.9 g/dL (6.4-8.2)
[2019-08-06 22:41] LABS: Carbon Dioxide 4 mmol/L (21-32)
[2019-08-07] VITALS (62 sets, daily range): BP systolic 84–123; BP diastolic 28–83
[2019-08-07] MEDS ORDERED: MORPHINE SULFATE 4 MG/ML SYR/VIAL IV ONE (01:30)
[2019-08-07] MEDS ORDERED: ONDANSETRON HCL 4 MG/2 ML VIAL IV ONE (01:30)
[2019-08-07] MEDS ORDERED: SODIUM CHLORIDE 0.9% 1,000 ML IV ONE ×4 (02:30→12:45)
[2019-08-07] MEDS ORDERED: SODIUM BICARBONATE 8.4 % INJ 50ML VIAL IV ONE ×6 (03:00→17:45)
[2019-08-07] MEDS ORDERED: SODIUM BICARBONATE 50ML VIAL 150 ML in D5W 5% 1,000 ML IV ONE (03:00)
[2019-08-07] MEDS ORDERED: fentaNYL Drip 2500mCg/250mlNS 250 ML IV SCH (04:16)
[2019-08-07 04:27] LABS: Urine Bacteria MANY /hpf (None Seen); Urine Blood 1+ /uL (Negative); Urine Mucus FEW (None Seen); Urine Specific Gravity 1.017 (1.001-1.035); Urine WBC 21 /hpf (0 - 5)
[2019-08-07] MEDS: NOREPINEPHRINE 8 MG/250ML KIT 250 ML IV SCH (04:41)
[2019-08-07 05:57] LABS: Lactic Acid w/Reflex 2.7 mmol/L (0.4-2.0)
[2019-08-07] MEDS ORDERED: diphenhdrAMINE HCL 50 MG/1 ML VL IV ONE ×2 (07:15)
[2019-08-07] MEDS ORDERED: ONDANSETRON HCL 4 MG/2 ML VIAL IV PRN (07:30)
[2019-08-07] MEDS ORDERED: NITROGLYCERIN 0.4 MG SL TAB SL PRN (07:30)
[2019-08-07] MEDS ORDERED: MORPHINE SULF INJ 2 MG/ML SYRINGE 1ML IV PRN (07:30)
[2019-08-07] MEDS ORDERED: SODIUM BICARBONATE 50ML VIAL 100 ML in SOD CHL 0.45% 1,000 ML IV SCH (07:30)
[2019-08-07] MEDS ORDERED: TEMAZEPAM 15 MG CAP PO PRN (07:30)
[2019-08-07] MEDS ORDERED: ETOMIDATE (2MG/ML) 20ML VIAL IV ONE (07:31)
[2019-08-07] MEDS ORDERED: SUCCINYLCHOLINE CHLORIDE 20 MG/ML 10ML VIAL IV ONE (07:32)
[2019-08-07] MEDS ORDERED: MIDAZOLAM DRIP 50 mg/50mL 50 ML IV ONE (07:36)
[2019-08-07] MEDS ORDERED: SODIUM CHLORIDE 0.9% 500 ML IV ONE (07:45)
[2019-08-07] MEDS: MIDAZOLAM DRIP 50 mg/50mL 50 ML IV SCH (08:25)
--- NOTE | 2019-08-07 09:00 | NUR ---
Respiratory note: SPOKE WITH DR AYALA, NO FURTHER ABG'S ORDERED AT THIS TIME. DR AYALA WANTS ABG DONE AFTER PT IS TRANSFERRED TO ICU, AND A-LINE IS IN PLACE.
[2019-08-07 09:15] LABS: Anion Gap 24 (5-15); BUN/Creatinine Ratio 13.8; Blood Urea Nitrogen 50 mg/dL (7-18); Calcium 6.7 mg/dL (8.5-10.1); Chloride 106 mmol/L (98-107); GFR African American 16 mL/min; GFR Non-African American 14 mL/min; Glucose 152 mg/dL (74-106); Potassium 4.3 mmol/L (3.5-5.1); Sodium 133 mmol/L (136-145)
[2019-08-07 09:24] LABS: Carbon Dioxide 3 mmol/L (21-32)
[2019-08-07] MEDS ORDERED: VANCOMYCIN 1GM/250ML 250 ML IV ONE (09:30)
[2019-08-07] MEDS ORDERED: PIPERACILLIN-TAZOB 3.375GM 100 ML IV ONE (09:30)
[2019-08-07] MEDS: fentaNYL Drip 2500mCg/250mlNS 250 ML IV SCH (09:58)
[2019-08-07] MEDS ORDERED: PANTOPRAZOLE 40 MG TAB PO SCH (10:00)
--- NOTE | 2019-08-07 10:10 | NUR ---
Pt being admitted to ICU [facility] BE[facility] admitted to ICU via gurney on patient monitor, and portable 02. Patient transfered to bed, connected to ICU monitoring and oxygen, and weighed by bedscale. Patient oriented to ASYA RUELAS RN primary RN, unit, room, bed, and unit policies regarding patient care and visiting hours. All questions and concerns addressed, patient verbalized understanding.
--- NOTE | 2019-08-07 10:15 | NUR ---
Respiratory note: PT TRANSPORTED TO ICU ROOM 102 FROM ER WITHOUT INCIDENCE. REPORT GIVEN TO RT SOUZA ON PT STATUS.
[2019-08-07 10:26] LABS: Lactic Acid w/Reflex 2.2 mmol/L (0.4-2.0)
[2019-08-07] MEDS: ALBUTEROL SULF 2.5 MG/0.5ML(0.5%) NEB SOLN NEB SCH ×2 (12:00→18:58)
[2019-08-07] MEDS ORDERED: VASOPRESSIN 50 UNITS in D5W 5% 247.5 ML IV SCH (13:00)
[2019-08-07] MEDS ORDERED: PANTOPRAZOLE 40 MG/10 ML VIAL INJ IV ONE (13:00)
--- NOTE | 2019-08-07 13:00 | NUR ---
DR. MANZANARES HERE TO SEE PATIENT. SEE MD NOTES AND EMR FOR ANY NEW ORDERS.
--- NOTE | 2019-08-07 13:20 | NUR ---
Respiratory note: RR INCREASED TO [address] MANZANARES. NEW VENT SETTINGS: RR 18, VT 550, PEEP OF 5 AND 30% FIO2.
--- NOTE | 2019-08-07 13:47 | NUR ---
DR. HICKS HERE TO SEE PATIENT. SEE MD NOTES AND EMR FOR ANY NEW ORDERS.
[2019-08-07 15:20] LABS: BUN/Creatinine Ratio 13.4; Calcium 6.4 mg/dL (8.5-10.1); Potassium 3.1 mmol/L (3.5-5.1)
--- NOTE | 2019-08-07 16:55 | NUR ---
DR. AYALA PLACED A LINE TO LEFT WRIST. PATIENT TOLERATED PROCEDURE WELL.
[2019-08-07] MEDS: SODIUM BICARBONATE 50ML VIAL 150 ML in D5W 5% 1,000 ML IV SCH ×2 (17:30→22:06)
--- NOTE | 2019-08-07 17:35 | NUR ---
DR. BEAR HERE TO SEE PATIENT. SEE MD NOTES AND EMR FOR ANY NEW ORDERS.
--- NOTE | 2019-08-07 17:45 | NUR ---
RT NOTE NEW VENT ORDERS FROM DR THORNTON, CHANGE VENT TO PCV 24, 25/5, I:TIME 0.9. ABG IN 1 HOUR
[2019-08-07] MEDS: PIPERACILLIN-TAZOB 2.25GM 50 ML IV SCH (18:00)
--- NOTE | 2019-08-07 18:09 | NUR ---
RT NOTE RECEIVED PT INTUBATED AND ON VENT V6 ON STATED SETTINGS .VENT IS PLUGGED TO RED OUTLET. ALARMS ARE ON AND AUDIBLE AT NURSES STATION. AMBU BAG AT BEDSIDE AND CONNECTED TO O2 SOURCE. 8.0 ETT IS SECURED WITH ANCHORFAST AT 24 CM TO THE ORAL CENTER. BILATERAL BS ARE CLEAR/DIM. PT WAS SUCTIONED FOR SCANT RETURN. HHN GIVEN INLINE WITH 2.5 MG ALBUTEROL WITHOUT ADVERSE REACTION NOTED. PT HAS A LEFT RADIAL ART-LINE NOTED. etCO2 13, PT TEMP 98.1, POX 100%. Addendum: 08/07/19 at 1938 by Gabriella Pitts RT Amended: Links added.
--- NOTE | 2019-08-07 18:13 | NUR ---
RT NOTE ABG DRAWN POST VENT CHANGES. RESULTS CALLED TO DR THORNTON. REPEAT ABG IN AM.
[2019-08-07 18:28] LABS: BUN/Creatinine Ratio 12.7; Calcium 6.1 mg/dL (8.5-10.1)
--- NOTE | 2019-08-07 18:33 | NUR ---
DR. GONCALVES HOSPITALIST CALLED TO INFORM OF CRITICAL LAB OF POTASSIUM OF 2.8 AWAITING CALL BACK.
[2019-08-07 18:38] LABS: Potassium 2.8 mmol/L (3.5-5.1)
[2019-08-07] MEDS: POTASSIUM CHL 20MEQ/100ML 100 ML IV SCH ×2 (20:00→22:00)
--- NOTE | 2019-08-07 20:09 | NUR ---
RT NOTE ROUTINE VENT CHECK DONE. PT INTUBATED AND ON VENT V6 ON STATED SETTINGS .VENT IS PLUGGED TO RED OUTLET. ALARMS ARE ON AND AUDIBLE AT NURSES STATION. AMBU BAG AT BEDSIDE AND CONNECTED TO O2 SOURCE. 8.0 ETT IS SECURED WITH ANCHORFAST AT 24 CM TO THE ORAL CENTER. CRISTOFER VILLANUEVA AT BEDSIDE. PT HAS A LEFT RADIAL ART-LINE NOTED. etCO2 11, PT TEMP 98.8, POX 100%. Addendum: 08/07/19 at 2030 by Gabriella Pitts RT Amended: Links added.
--- NOTE | 2019-08-07 21:55 | NUR ---
RT NOTE ROUTINE VENT CHECK DONE. PT INTUBATED AND ON VENT V6 ON STATED SETTINGS .VENT IS PLUGGED TO RED OUTLET. ALARMS ARE ON AND AUDIBLE AT NURSES STATION. AMBU BAG AT BEDSIDE AND CONNECTED TO O2 SOURCE. 8.0 ETT IS SECURED WITH ANCHORFAST AT 24 CM TO THE ORAL CENTER. CRISTOFER VILLANUEVA AT BEDSIDE. PT HAS A LEFT RADIAL ART-LINE NOTED. etCO2 12, PT TEMP 98.8, POX 100%. Addendum: 08/07/19 at 2250 by Gabriella Pitts RT Amended: Links added.
[2019-08-07] MEDS: LINEZOLID 600MG/300ML 300 ML IV SCH (22:00)
[2019-08-08] VITALS (95 sets, daily range): BP systolic 92–139; BP diastolic 35–71
--- NOTE | 2019-08-08 00:02 | NUR ---
RT NOTE ROUTINE VENT CHECK DONE. PT INTUBATED AND ON VENT V6 ON STATED SETTINGS .VENT IS PLUGGED TO RED OUTLET. ALARMS ARE ON AND AUDIBLE AT NURSES STATION. AMBU BAG AT BEDSIDE AND CONNECTED TO O2 SOURCE. 8.0 ETT IS SECURED WITH ANCHORFAST AT 24 CM TO THE ORAL CENTER. BS ARE CLEAR. PT WAS SUCTIONED FOR SCANT RETURN. HHN GIVEN INLINE WITH 2.5 MG ALBUTEROL WITHOUT ADVERSE REACTION NOTED. PT HAS A LEFT RADIAL ART-LINE NOTED. etCO2 13, PT TEMP 98.8, POX 100%. Addendum: 08/08/19 at 0047 by Gabriella Pitts RT Amended: Links added.
[2019-08-08] MEDS: ALBUTEROL SULF 2.5 MG/0.5ML(0.5%) NEB SOLN NEB SCH ×4 (00:11→18:00)
--- NOTE | 2019-08-08 02:18 | NUR ---
RT NOTE ROUTINE VENT CHECK DONE. PT INTUBATED AND ON VENT V6 ON STATED SETTINGS .VENT IS PLUGGED TO RED OUTLET. ALARMS ARE ON AND AUDIBLE AT NURSES STATION. AMBU BAG AT BEDSIDE AND CONNECTED TO O2 SOURCE. 8.0 ETT IS SECURED WITH ANCHORFAST AT 24 CM TO THE ORAL CENTER. PT HAS A LEFT RADIAL ART-LINE NOTED. etCO2 12, PT TEMP 98.6, POX 100%. Addendum: 08/08/19 at 0239 by Gabriella Pitts RT Amended: Links added.
[2019-08-08] MEDS: SODIUM BICARBONATE 50ML VIAL 150 ML in D5W 5% 1,000 ML IV SCH ×4 (02:42→19:57)
--- NOTE | 2019-08-08 04:06 | NUR ---
RT NOTE ROUTINE VENT CHECK DONE. PT INTUBATED AND ON VENT V6 ON STATED SETTINGS. VENT IS PLUGGED TO RED OUTLET. ALARMS ARE ON AND AUDIBLE AT NURSES STATION. AMBU BAG AT BEDSIDE AND CONNECTED TO O2 SOURCE. 8.0 ETT IS SECURED WITH ANCHORFAST AT 24 CM TO THE ORAL CENTER. PT HAS A LEFT RADIAL ART-LINE NOTED. HME, T-PIECE AND INLINE SUCTION CHANGED WITHOUT INCIDENT. etCO2 18, PT TEMP 98.4, POX 100%. Addendum: 08/08/19 at 0421 by Gabriella Pitts RT Amended: Links added.
[2019-08-08] MEDS: NOREPINEPHRINE 8 MG/250ML KIT 250 ML IV SCH (04:18)
[2019-08-08 04:19] LABS: Hematocrit 33.4 % (36.0-46.0); Hemoglobin 11.9 g/dL (12.2-16.2); Mean Corpuscular Hgb Conc. 35.6 g/dL (32.0-36.0); Mean Corpuscular Volume 92.6 fL (80.0-100.0); Platelet Count (auto) 147 10^3/uL (140-450); Red Blood Cells 3.61 10^6/uL (4.0-5.20); Red Cell Distribution Width 14.6 % (11.8-14.3); White Blood Cell 9.2 10^3/uL (4.4-10.8)
[2019-08-08 04:33] LABS: Band Neutrophils % (manual) 0; Basophils % (manual) 0 (0.0-2.0); Blast Cells 0; Eosinophils % (manual) 0 (0-7); Metamyelocytes % 0; Myelocytes % 0; Promyelocytes % 0; Reactive Lymphocytes 0
[2019-08-08 04:46] LABS: INR 1.1 (0.9-1.15); Partial Thromboplastin Time 26.8 sec (23.64-32.05)
[2019-08-08 04:51] LABS: Albumin 2.4 g/dL (3.4-5.0)
[2019-08-08 04:55] LABS: BUN/Creatinine Ratio 11.4; Bilirubin, Total 0.1 mg/dL (0.2-1.0); Total Protein 4.6 g/dL (6.4-8.2)
[2019-08-08 04:59] LABS: Potassium 2.5 mmol/L (3.5-5.1)
[2019-08-08 05:00] LABS: Calcium 5.5 mg/dL (8.5-10.1)
[2019-08-08 05:58] LABS: Lymphocytes % (manual) 12 (10.0-50.0); Monocytes % (manual) 7 (0-12)
[2019-08-08] MEDS: PIPERACILLIN-TAZOB 2.25GM 50 ML IV SCH ×4 (06:00→21:00)
[2019-08-08] MEDS: MIDAZOLAM DRIP 50 mg/50mL 50 ML IV SCH (07:48)
[2019-08-08] MEDS: POTASSIUM CHL 20MEQ/100ML 100 ML IV SCH ×6 (07:51→17:00)
[2019-08-08] MEDS: fentaNYL Drip 2500mCg/250mlNS 250 ML IV SCH (07:52)
[2019-08-08] MEDS ORDERED: SODIUM BICARBONATE 50ML VIAL 150 ML in D5W 5% 1,000 ML IV SCH (08:45)
[2019-08-08] MEDS: PANTOPRAZOLE 40 MG/10 ML VIAL INJ IV SCH (10:05)
[2019-08-08] MEDS: LINEZOLID 600MG/300ML 300 ML IV SCH ×2 (10:05→22:00)
[2019-08-08] MEDS ORDERED: FLORASTOR (S. BOULARDII) 250 MG CAP PO ONE (10:40)
[2019-08-08] MEDS ORDERED: POTASSIUM EFFERVESENT TAB 25 MEQ PO ONE (10:45)
[2019-08-08] MEDS ORDERED: CALCIUM CHL 100MG/ML 1,000 MG in D5W 5% 100 ML IV ONE (10:45)
[2019-08-08] MEDS: BUMETANIDE INJECTION 12.5 MG in GIVE UN-DILUTED 0 ML IV SCH (10:45)
[2019-08-08] MEDS: DOPamine 1600MCG/ML D5W 250 ML IV SCH (11:07)
--- NOTE | 2019-08-08 12:30 | NUR ---
WOUND CARE NOTE: IN TO SEE PATIENT AT THIS TIME PER WOUND CARE CONSULT REQUEST. PATIENT WAS ADMITTED TO [facility] WITH DIAGNOSIS OF SEPTIC SHOCK. CURRENT CHRISTINA SCORE IS 11. PATIENT IS INTUBATED, SEDATED CURRENTLY. SHE IS WOUND FREE AT THIS TIME. PHOTO TAKEN OF SMALL ECCHYMOTIC AREA OF RIGHT WRIST FOR REFERENCE. RECOMMEND: FREQUENT TURN SCHEDULE Q 2 HOURS, PRN CONDITION PERMITS, WITH PRESSURE REDISTRIBUTION USING PILLOWS/WEDGES, BID/PRN APPLICATION MOISTURE BARRIER CREAM, OPTIFOAM GENTLE SACRAL DRESSING PREVENTATIVE, SKIN/WOUND CARE PLAN, DIETARY CONSULT FOR LOW CHRISTINA, CONTINUED MONITORING BY WOUND CARE TEAM.
[2019-08-08 18:56] LABS: Creatinine, Urine 32 mg/dL (30.0-125.0); Sodium Urine 60 mmol/L (40-220)
[2019-08-08] MEDS ORDERED: BUMETANIDE INJECTION 20 ML ONE (20:44)
[2019-08-09] VITALS (106 sets, daily range): BP systolic 60–150; BP diastolic 17–88
[2019-08-09] MEDS: ALBUTEROL SULF 2.5 MG/0.5ML(0.5%) NEB SOLN NEB SCH ×4 (00:10→18:06)
[2019-08-09] MEDS: NOREPINEPHRINE 8 MG/250ML KIT 250 ML IV SCH ×2 (04:18→12:47)
[2019-08-09 04:34] LABS: Basophils # (auto) 0 uL; Basophils % (auto) 0.2 % (0.0-2.0); Eosinophils # (auto) 0 uL; Eosinophils % (auto) 0.5 % (0.0-7.0); Hematocrit 32.8 % (36.0-46.0); Hemoglobin 11.8 g/dL (12.2-16.2); Lymphocytes # (auto) 1.7 uL; Lymphocytes % (auto) 20.5 % (10.0-50.0); Mean Corpuscular Hemoglobin 32.6 pg (28.0-32.0); Mean Corpuscular Volume 90.5 fL (80.0-100.0); Monocytes # (auto) 0.9 uL; Monocytes % (auto) 11.6 % (0.0-12.0); Neutrophils # (auto) 5.4 uL; Neutrophils % (auto) 67.2 % (37.0-80.0); Nucleated Red Blood Cells % 0.2 %; Platelet Count (auto) 121 10^3/uL (140-450); Red Blood Cells 3.62 10^6/uL (4.0-5.20); Red Cell Distribution Width 15.1 % (11.8-14.3); White Blood Cell 8.1 10^3/uL (4.4-10.8)
[2019-08-09 04:48] LABS: Albumin 2.3 g/dL (3.4-5.0); BUN/Creatinine Ratio 10.7; Magnesium 1.4 mg/dL (1.6-2.6); Phosphorus 1.7 mg/dL (2.5-4.90)
[2019-08-09] MEDS ORDERED: BUMETANIDE INJECTION 10 ML ONE (04:48)
[2019-08-09 04:51] LABS: Bilirubin, Total 0.2 mg/dL (0.2-1.0)
[2019-08-09 04:52] LABS: Potassium 2.4 mmol/L (3.5-5.1)
[2019-08-09 04:53] LABS: Calcium 5.4 mg/dL (8.5-10.1)
[2019-08-09] MEDS: PIPERACILLIN-TAZOB 2.25GM 50 ML IV SCH ×3 (05:00→21:17)
[2019-08-09] MEDS: SODIUM BICARBONATE 50ML VIAL 150 ML in D5W 5% 1,000 ML IV SCH (05:09)
[2019-08-09] MEDS ORDERED: POTASSIUM EFFERVESENT TAB 25 MEQ GT ONE (05:45)
[2019-08-09] MEDS: POTASSIUM CHL 20MEQ/100ML 100 ML IV SCH ×3 (06:00→09:19)
[2019-08-09] MEDS: MIDAZOLAM DRIP 50 mg/50mL 50 ML IV SCH ×4 (07:48→21:16)
[2019-08-09] MEDS: fentaNYL Drip 2500mCg/250mlNS 250 ML IV SCH (08:23)
[2019-08-09] MEDS ORDERED: POTASSIUM EFFERVESENT TAB 25 MEQ PO ONE (08:30)
--- NOTE | 2019-08-09 08:38 | NUR ---
Patient is bucking the vent, sedations increased per protocol see spreadsheet.
[2019-08-09] MEDS: BUMETANIDE INJECTION 12.5 MG in GIVE UN-DILUTED 0 ML IV SCH (09:19)
[2019-08-09] MEDS: LINEZOLID 600MG/300ML 300 ML IV SCH ×2 (09:24→22:54)
[2019-08-09] MEDS: FLORASTOR (S. BOULARDII) 250 MG CAP PO SCH (09:24)
[2019-08-09] MEDS: PANTOPRAZOLE 40 MG/10 ML VIAL INJ IV SCH (09:24)
[2019-08-09] MEDS ORDERED: CALCIUM CHL 100MG/ML 1,000 MG in D5W 5% 100 ML IV ONE (09:45)
--- NOTE | 2019-08-09 09:50 | NUR ---
Dr. Brewer at bedside.
[2019-08-09] MEDS ORDERED: CALCIUM CHL IV ONE (10:00)
[2019-08-09] MEDS ORDERED: D5W 5% IV ONE (10:00)
[2019-08-09] MEDS ORDERED: MAGNESIUM SULFATE 1GM/100ML 100 ML IV SCH (10:00)
[2019-08-09] MEDS ORDERED: POTASSIUM PHOSPHATE 44 MEQ in D5W 5% 250 ML IV ONE (10:00)
[2019-08-09] MEDS ORDERED: MORPHINE SULF(PF) 0.5MG/ML 10ML VIAL ONE (10:08)
[2019-08-09] MEDS ORDERED: MIDAZOLAM HCL 1MG/1ML-2 ML VIAL ONE (10:08)
[2019-08-09] MEDS ORDERED: fentaNYL CITRATE 100 MCG/2 ML VL ONE (10:08)
--- NOTE | 2019-08-09 10:26 | NUR ---
Dr. Thornton at bedside.
[2019-08-09] MEDS ORDERED: ceFAZolin 1GM VL ONE (10:49)
[2019-08-09] MEDS ORDERED: OXYTOCIN 10 UNIT/ML 10ML VIAL ONE (10:49)
[2019-08-09] MEDS ORDERED: PHENYLEPHRINE HCL 10 MG/ML VL ONE (10:51)
--- NOTE | 2019-08-09 11:54 | NUR ---
Nutrition Assessment/consult Notes please see attached link for complete assessment Est. Needs ABW [id number] kcal (23-25 kcal/kgBW), 55-69 gms pro (0.8-1.0 gms/kgBW r/t elev RFT CKD). Will continue to monitor pertinent labs and reassess nutrient need prn Addendum: 08/09/19 at [address] Amended: Links added.
[2019-08-09] MEDS: MAGNESIUM SULFATE 1GM/100ML 100 ML IV SCH ×3 (12:02→13:40)
[2019-08-09] MEDS: SODIUM BICARBONATE 50ML VIAL 100 ML in SOD CHL 0.45% 1,000 ML IV SCH ×2 (12:45→21:16)
[2019-08-09] MEDS: DOPamine 1600MCG/ML D5W 250 ML IV SCH (12:45)
--- NOTE | 2019-08-09 13:30 | NUR ---
RT NOTE: PT. PLACED ON HEATED WIRE CIRCUIT WITHOUT INCIDENT. HEATER SET TO 36C.
--- NOTE | 2019-08-09 16:59 | NUR ---
RT NOTE: MESSAGE SERVICE CALLED. VOICE MAIL LEFT.
--- NOTE | 2019-08-09 17:55 | NUR ---
Patient incontinent of liquid brown stool. Complete bath given. Linens and gown changed. No s/s of distress noted. Safety maintained, will continue to monitor.
--- NOTE | 2019-08-09 18:06 | NUR ---
Respiratory note: RECEIVED PT ON VENT V6, VENT CONNECTED TO RED OUTLET AND O2 SOURCE ALARMS ARE SET AND AUDIBLE. AMBU BAG AND MASK AT BEDSIDE. BS ARE FINE COURSE T/O, SXD VIA ETT FOR SMALL THICK JIMENEZ. MED NEB TX GIVEN INLINE WITHOUT ADVERSE REACTION NOTED. PTS CURRENT TEMP IS 98.4F. RT NAME AND PAGER ASSIGNMENT WRITTEN ON PTS ROOM BOARD WILL CONTINUE TO MONITOR Q2H CHECKS AND NEEDED.
--- NOTE | 2019-08-09 19:00 | NUR ---
OPENING NOTE ASSUMED CARE OF PATIENT AT THIS TIME. REPORT RECEIVED FROM DAY SHIFT RN. POC REVIEWED. HEAD TO TOE ASSESSMENT COMPLETE, SEE INTERVENTION SPREADSHEET FOR COMPLETE DETAILS. RECEIVED PT INTUBATED AND SEDATED. RECEIVED PT ON DOPAMINE AT 2 MCG, LEVO AT 2 MCG, FENT AT 200 MCG, VERSED AT 15MG, BICARB GTT AT 125, BUMEX AT 2 MLS/HR. PT AROUSABLE WITH STIMULATION. SKIN INTACT. IV SITE BENIGN. NULL CATHETER DRAINING TO GRAVITY. BED LOCKED AND IN LOWEST POSITION, SAFETY PRECAUTIONS IN PLACE. SUCTION AND BVM AT BEDSIDE. WILL MONITOR PT CAREFULLY.
--- NOTE | 2019-08-09 20:01 | NUR ---
Respiratory note: AT BEDSIDE FOR ROUTINE VENT CHECK. NO VENT CHANGES MADE AT THIS TIME. PTS CURRENT TEMPT IS 98.4F.
--- NOTE | 2019-08-09 20:25 | NUR ---
FAMILY/PASSWORD OF PATIENT AGUSTIN CALLED FOR UPDATE, SET UP PASSWORD OF [facility]. UPDATED IN INTERVENTIONS. ALL QUESTIONS ADDRESSED AT THIS TIME.
--- NOTE | 2019-08-09 20:45 | NUR ---
ELIMINATION PT INCONTINENT OF LOOSE STOOL. PT CLEANED, LORETA CARE PROVIDED. Z-GUARD APPLIED TO RECTAL/LORETA AREA. PT DID NOT TOLERATE LYING FLAT. OXYGEN SATS DECREASED TO 70%. PT REPOSITIONED FOR SAFETY AND COMFORT. WILL MONITOR CAREFULLY.
--- NOTE | 2019-08-09 21:26 | NUR ---
ARTERIAL LINE ASSESSMENT DRESSING CHANGE USING STERILE TECHNIQUE D/T DRAINING AROUND INSERTION SITE. UNABLE TO DRAW BACK ON ART LINE. PRESSURE TUBING CONNECTED, ZEROED. DOES NOT CORRELATE WITH CUFF PRESSURE. WILL NOTIFY DAY SHIFT TO LET PRIMARY PROVIDER KNOW.
--- NOTE | 2019-08-09 21:56 | NUR ---
Respiratory note: At bedside for routine vent check. no changes made will continue to monitor q2h and as needed current temp is 98.4F.
[2019-08-10] VITALS (103 sets, daily range): BP systolic 55–123; BP diastolic 37–113
[2019-08-10] MEDS: ALBUTEROL SULF 2.5 MG/0.5ML(0.5%) NEB SOLN NEB SCH ×4 (00:09→17:59)
--- NOTE | 2019-08-10 00:09 | NUR ---
Respiratory note: AT BEDSIDE FOR ROUTINE VENT CHECK. GREEN OPA SIZE 8.0 PLACED IN MOUTH DUE TO PT BITING RESOLVING HIGH PRESSURES AND INABILITY TO SX IMMEDIATELY. RN NBA MADE AWARE. MED NEB TX GIVEN INLINE WITHOUT ADVERSE REACTION. PTS CURRENT TEMP IS 98.2F. NO VENT CHANGES MADE WILL CONTINUE TO MONITOR.
[2019-08-10] MEDS: fentaNYL Drip 2500mCg/250mlNS 250 ML IV SCH ×2 (00:49→11:42)
[2019-08-10] MEDS: MIDAZOLAM DRIP 50 mg/50mL 50 ML IV SCH ×3 (00:50→06:23)
--- NOTE | 2019-08-10 01:59 | NUR ---
Respiratory note: AT BEDSIDE FOR ROUTINE VENT CHECK. SX CATHETER CHANGED AT THIS TIME. NO VENT CHANGES MADE WILL CONTINUE TO MONITOR.PT CURRENT TEMP IS 98.4F.
--- NOTE | 2019-08-10 04:15 | NUR ---
Respiratory note: END OF SHIFT VENT CHECK NO VENT CHANGE MADE, WILL HAVE DAY SHIFT RT CONTINUE POC. PTS CURRENT TEMP IS 98.4F.
[2019-08-10 04:19] LABS: Basophils # (auto) 0.1 uL; Basophils % (auto) 1.1 % (0.0-2.0); Eosinophils # (auto) 0.1 uL; Eosinophils % (auto) 1.5 % (0.0-7.0); Hematocrit 26.9 % (36.0-46.0); Hemoglobin 9.8 g/dL (12.2-16.2); Lymphocytes # (auto) 1.5 uL; Lymphocytes % (auto) 29.7 % (10.0-50.0); Mean Corpuscular Hemoglobin 32.5 pg (28.0-32.0); Mean Corpuscular Hgb Conc. 36.5 g/dL (32.0-36.0); Mean Corpuscular Volume 88.9 fL (80.0-100.0); Monocytes # (auto) 0.6 uL; Neutrophils # (auto) 2.9 uL; Neutrophils % (auto) 55.7 % (37.0-80.0); Nucleated Red Blood Cells % 0.3 %; Platelet Count (auto) 82 10^3/uL (140-450); Red Blood Cells 3.02 10^6/uL (4.0-5.20); Red Cell Distribution Width 15.4 % (11.8-14.3); White Blood Cell 5.2 10^3/uL (4.4-10.8)
[2019-08-10] MEDS: DOPamine 1600MCG/ML D5W 250 ML IV SCH (04:23)
[2019-08-10 04:44] LABS: Potassium 3.5 mmol/L (3.5-5.1)
[2019-08-10 04:45] LABS: Albumin 1.9 g/dL (3.4-5.0); BUN/Creatinine Ratio 9.5; Bilirubin, Total 0.2 mg/dL (0.2-1.0); Calcium 6.3 mg/dL (8.5-10.1); Phosphorus 2.3 mg/dL (2.5-4.90); Total Protein 4.4 g/dL (6.4-8.2)
--- NOTE | 2019-08-10 04:45 | NUR ---
bathing/linen change pt given complete bed bath with full linen change. Pt tolerated well. VSS. Suction tubing and canister changed at this time. Safety precautions maintained. Will continue with care.
[2019-08-10] MEDS: SODIUM BICARBONATE 50ML VIAL 100 ML in SOD CHL 0.45% 1,000 ML IV SCH (05:35)
[2019-08-10] MEDS: PIPERACILLIN-TAZOB 2.25GM 50 ML IV SCH (05:36)
--- NOTE | 2019-08-10 07:25 | NUR ---
OPENING NOTE SHIFT REPORT RECEIVED AND ASSUMED CARE OF PT FROM NBA CLEVELAND
--- NOTE | 2019-08-10 07:34 | NUR ---
Respiratory note: PAGED DR. BARLOW FOR CRITICAL ABG RESULTS.
--- NOTE | 2019-08-10 07:45 | NUR ---
Respiratory note: SECOND PAGE TO DR. BARLOW REGARDING CRITICAL ABG RESULTS.
--- NOTE | 2019-08-10 08:00 | NUR ---
Respiratory note: SPOKE WITH DR. AGOSTO FOR CRITICAL ABG RESULTS. VENT CHANGE FROM PC TO AC RR 14, VT 45, PEEP 5. ABG TO FOLLOW AT NOON.
--- NOTE | 2019-08-10 09:30 | NUR ---
DR. HARRISON AT BEDSIDE ORDERS RECEIVED
[2019-08-10] MEDS ORDERED: HEPARIN SODIUM (PORCINE) 5000 UNITS/ML 1ML VIAL SC SCH (10:00)
--- NOTE | 2019-08-10 10:30 | NUR ---
DR. PALOMARES AT BEDSIDE ORDERS RECEIVED
[2019-08-10] MEDS ORDERED: CALCIUM GLUC 4.65meq/50ml D5AE 50 ML IV ONE ×2 (10:45)
[2019-08-10] MEDS ORDERED: POTASSIUM PHOSPHATE 44 MEQ in D5W 5% 250 ML IV ONE (10:45)
[2019-08-10] MEDS ORDERED: BUMETANIDE 2.5mg/10ml (0.25 mg/ml) INJ IV ONE (10:45)
[2019-08-10] MEDS: PANTOPRAZOLE 40 MG/10 ML VIAL INJ IV SCH (11:33)
[2019-08-10] MEDS: FLORASTOR (S. BOULARDII) 250 MG CAP PO SCH (11:34)
[2019-08-10] MEDS: ALBUMIN 25% 100 ML IV SCH ×2 (11:37→18:09)
[2019-08-10] MEDS: BUMETANIDE INJECTION 12.5 MG in GIVE UN-DILUTED 0 ML IV SCH (11:39)
[2019-08-10] MEDS: PROPOFOL 100 ML IV SCH (11:41)
[2019-08-10] MEDS: MAGNESIUM SULFATE 1GM/100ML 100 ML IV SCH ×2 (12:00→14:12)
--- NOTE | 2019-08-10 12:40 | NUR ---
DR. GUZMAN AT BEDSIDE ORDERS RECEIVED
[2019-08-10] MEDS ORDERED: Nepro With Carb Steady 1 Liter Bottle GT SCH (12:45)
--- NOTE | 2019-08-10 13:30 | NUR ---
SISITER IN LAW CALLED PASSWORD VERIFIED. UPDATED ON PT STATUS
--- NOTE | 2019-08-10 14:15 | NUR ---
Assessment Pt is a 59 yr old intubated female. SW talked with , Hugo Gonzales, on the phone at [phone]. Prior to admit, pt was blind, very weak and lethargic. Pt is ambulatory but pt's stated that he assists her to get up and get to the bathroom. Hugo stated that pt mostly lays on couch and is hasn't been in good health for a while so she is unable to take care of herself very well. Pt's cooks, cleans and does laundry. Pt receives SS and pension income. Pt's was unsure if pt has and advanced directive, in general. Pt's stated that, depending on pt's health, he can transport her or she might need [facility] transportation. No needs or concerns expressed at this time. Further d/c needs will be assessed closer to d/c. Addendum: 08/10/19 at 1423 by JASON REID Amended: Links added.
[2019-08-10] MEDS ORDERED: Glucerna 1.2 Cal 1Liter BOTTLE GT SCH (17:00)
[2019-08-10] MEDS ORDERED: MAGNESIUM SULFATE 1GM/100ML 100 ML IV ONE (17:08)
--- NOTE | 2019-08-10 17:59 | NUR ---
Respiratory note: PT SEEN FOR FIRST INITIAL VENT CHECK. PT NOTED TO HAVE BREAKDOWN ON HER LIPS. THE BREAKDOWN IS IN THE CORNERS OF HER MOUTH AND ON THE TOP AND BOTTOM LIP. THE WOUNDS ARE ACTIVELY BLEEDING. CRISTOFER ABDULLAHI MADE AWARE AND STATED SHE WOULD NOTIFY NOC RT.
--- NOTE | 2019-08-10 19:00 | NUR ---
OPENING NOTE ASSUMED CARE OF PATIENT AT THIS TIME. REPORT RECEIVED FROM DAY SHIFT RN. POC REVIEWED. HEAD TO TOE ASSESSMENT COMPLETE, SEE INTERVENTION SPREADSHEET FOR COMPLETE DETAILS. RECEIVED PT INTUBATED AND SEDATED. RECEIVED PT ON DOPAMINE AT 2 MCG, LEVO AT 1.5 MCG, FENT AT 130 MCG, BUMEX AT 1 mg/HR. PT AROUSABLE WITH STIMULATION. SKIN INTACT. IV SITE BENIGN.PT HAS LEFT ARTERIAL LINE THAT DOES NOT DRAW BACK. NULL CATHETER DRAINING TO GRAVITY. BED LOCKED AND IN LOWEST POSITION, SAFETY PRECAUTIONS IN PLACE. SUCTION AND BVM AT BEDSIDE. WILL MONITOR PT CAREFULLY.
--- NOTE | 2019-08-10 19:10 | NUR ---
CLOSING NOTE SHIFT REPORT GIVE BACK AND CARE ENDORSED TO NBA C[place]AND
--- NOTE | 2019-08-10 21:26 | NUR ---
TUBE FEEDING STARTED AT 15 MLS/HR AT THIS TIME PER MD ORDER. POSITIVE PLACEMENT ASSESSED. WILL ASSESS FOR PT TOLERANCE AND ADVANCE TOLERATED TO GOAL OF 30 MLS/HR.
--- NOTE | 2019-08-10 23:31 | NUR ---
sedation vacation not appropriate at this time Addendum: 08/10/19 at 2332 by NBA HERNANDEZ RN Amended: Links added.
[2019-08-11] VITALS (102 sets, daily range): BP systolic 85–139; BP diastolic 42–111
[2019-08-11] MEDS: ALBUTEROL SULF 2.5 MG/0.5ML(0.5%) NEB SOLN NEB SCH ×4 (00:03→18:18)
[2019-08-11] MEDS: BUMETANIDE INJECTION 12.5 MG in GIVE UN-DILUTED 0 ML IV SCH ×2 (00:07→10:24)
--- NOTE | 2019-08-11 00:30 | NUR ---
RESIDUALS NO RESIDUALS ASSESSED AT THIS TIME. CONTINUE TF AT 15 MLS/HR.
[2019-08-11] MEDS: ALBUMIN 25% 100 ML IV SCH ×2 (02:48→10:23)
[2019-08-11 04:02] LABS: Potassium 3.2 mmol/L (3.5-5.1)
[2019-08-11 04:03] LABS: Basophils # (auto) 0 uL; Basophils % (auto) 0.3 % (0.0-2.0); Eosinophils # (auto) 0.1 uL; Eosinophils % (auto) 2.6 % (0.0-7.0); Hematocrit 26.7 % (36.0-46.0); Hemoglobin 9.6 g/dL (12.2-16.2); Lymphocytes # (auto) 1.2 uL; Lymphocytes % (auto) 22.6 % (10.0-50.0); Mean Corpuscular Hemoglobin 32.4 pg (28.0-32.0); Mean Corpuscular Hgb Conc. 35.8 g/dL (32.0-36.0); Mean Corpuscular Volume 90.6 fL (80.0-100.0); Monocytes # (auto) 0.5 uL; Monocytes % (auto) 9.6 % (0.0-12.0); Neutrophils # (auto) 3.5 uL; Neutrophils % (auto) 64.9 % (37.0-80.0); Nucleated Red Blood Cells % 0.1 %; Platelet Count (auto) 70 10^3/uL (140-450); Red Blood Cells 2.95 10^6/uL (4.0-5.20); Red Cell Distribution Width 14.9 % (11.8-14.3); White Blood Cell 5.5 10^3/uL (4.4-10.8)
[2019-08-11 04:06] LABS: BUN/Creatinine Ratio 9.3
[2019-08-11] MEDS: NOREPINEPHRINE 8 MG/250ML KIT 250 ML IV SCH (04:18)
[2019-08-11 04:33] LABS: Calcium 5.9 mg/dL (8.5-10.1)
--- NOTE | 2019-08-11 04:42 | NUR ---
BED BATH PARTIAL LINEN CHANGE, PT TOLERATED WELL. SKIN EXCORIATION NOTED AROUND ANUS. BARRIER CREAM APPLIED. PT HAD SCANT AMOUNT OF GREEN BM. AREA OF RAISED REDNESS NOTED UNDER RIGHT BREAST. CREAM APPLIED TO AREA. PT REPOSITIONED FOR SAFETY AND COMFORT. SUCTION TUBING AND CANISTER CHANGED AT THIS TIME. PT CONTINUES TO HAVE SCABS AROUND LIPS WITH RED DRAINAGE, PT HAS BLOOD TINGED SECRETIONS WHEN PROVIDING ORAL CARE. BED LOCKED AND IN LOWEST POSITION, SAFETY PRECAUTIONS IN PLACE. WILL CONTINUE WITH CARE.
--- NOTE | 2019-08-11 05:02 | NUR ---
AM LABS CALCIUM THIS AM, 5.9. ORDER RECEIVED FROM HOSPITALIST FOR 2 GRAMS OF CALCIUM IV. WILL CARRY OUT ORDER.
[2019-08-11] MEDS ORDERED: CALCIUM GLUC 4.65meq/50ml D5AE 50 ML IV ONE ×2 (05:15)
[2019-08-11] MEDS: PROPOFOL 100 ML IV SCH ×3 (05:44→23:07)
[2019-08-11] MEDS: fentaNYL Drip 2500mCg/250mlNS 250 ML IV SCH ×2 (06:13→22:55)
--- NOTE | 2019-08-11 07:45 | NUR ---
OPENING SHIFT NOTE REPORT RECEIVED FROM COUPON COLLECTION CLERK RN, MORNING ASSESSMENT PERFORMED AND DOCUMENTED. 59 YEAR OLD FEMALE, RESTING IN BED, MECHANICALLY VENTILATED AND SEDATED (see IV spreadsheet for details). LUNGS SOUNDS CLEAR, LEFT NGT ASSESSED FOR POSITIVE PLACEMENT VIA AUSCULTATION AND MORNING CXR - RESIDUAL 10 MLS - NEPHRO RUNNING AT 30 MLS/HR, BOWEL SOUNDS HYPERACTIVE. PATIENT CLEANSED OF CONTINUOUS LIQUID DARK GREEN STOOL AND NOTED EXCORIATION TO THE RECTUM AND LORETA AREA - ZGUARD APPLIED AND OPTIFOAM. ORDERS FOR RECTAL TUBE RECEIVED AND PLACED TO MAINTAIN SKIN INTEGRITY. NULL PATENT AND DRAINING CLEAR/YELLOW URINE TO GRAVITY. COMFORT MEASURES PROVIDED, THIS NURSE WAS ASSISTED BY C STUDENT CRISTOFER KEVIN. ARTERIAL LINE DISCONTINUED DUE TO LEAKING AND NON FUNCTIONAL WITH STERILE TECHNIQUE, CATHETER FULLY INTACT. PRESSURE DRESSING APPLIED TO SITE, PATIENT TOLERATED WELL.
--- NOTE | 2019-08-11 08:39 | NUR ---
FAMILY UPDATED ON PATIENT'S STATUS PATIENT'S SISTER IN LAW - CONTRERAS UPDATED ON PATIENT'S STATUS AFTER PASSWORD VERIFICATION. ALL QUESTIONS ANSWERED TO THIS NURSES' KNOWLEDGE, CONTRERAS VERBALIZED UNDERSTANDING.
[2019-08-11] MEDS ORDERED: cefTRIAXone 1GM/50ML D5W 50 ML IV SCH (10:00)
[2019-08-11] MEDS: FLORASTOR (S. BOULARDII) 250 MG CAP PO SCH (10:19)
[2019-08-11] MEDS: PANTOPRAZOLE 40 MG/10 ML VIAL INJ IV SCH (10:25)
[2019-08-11] MEDS: DOPamine 1600MCG/ML D5W 250 ML IV SCH ×2 (10:45→22:55)
--- NOTE | 2019-08-11 10:51 | NUR ---
Family updated on pt status Family of CHANDRIKA BELL updated on patient's status and condition after password verification. All questions and concerns addressed. Hugo verbalized understanding.
--- NOTE | 2019-08-11 11:18 | NUR ---
Nutrition Follow-up Notes Wt.: 83.6 kg today. Pt's intubated, sedated, no immediate family member at beside during rounds earlier. Pt's currently NPO with EN support of Nephro Carb Steady @ 30 ml/hr providing 1296 kcal, 59 gms pro and 523 ml free water, tolerates feeding well, per nursing. Pt with adequate EN support d/t mod initiation rate delivery of concentrated formula aeb current EN infusion meets 75% to 82% of est caloric needs and 85% to 107% of est protein needs. Noted pt's for active Wound and Pulmonary consults. Est. Needs ABW [id number] kcal (23-25 kcal/kgBW), 55-69 gms pro (0.8-1.0 gms/kgBW r/t elev RFT CKD). Will continue to monitor pertinent labs and reassess nutrient need prn\ Labs: Gluc 66 L, Na 121 L, K 3.2 L, Cl 76 L, BUN 57 H, Cr 6.11 H, Ca 6.3 L, Phos 2.3 L, Tpro 4.4 L, Alb 1.9 L Skin: Donn scale 11, high risk, skin intact per paraplanner. GI: Pt had 1 BM per paraplanner. PES: Increased nutrient needs r/t acute/chronic medical condition aeb intubated, sedated, severe hypoalbuminemia, NPO with EN support. Altered nutrition related lab values r/t current/chronic medical condition aeb elev RFT hyperglycemia, mod hypoalb hypocalcemia Will continue to monitor NPO status, EN tolerance, skin status, pertinent labs and weight trend. F/u in 2 to 3 days. Rec.: 1.) If still NPO with EN support, consider gradual increase feeding rate of Nephro Carb Steady to 40 ml/hr goal rate as tolerated when medically appropriate. 2.) If renal labs continue trending up, not on dialysis, consider change EN formula to Jevity 1.2 Leif @ 55 ml/hr goal rate as tolerated if medically appropriate. 3.) Advance gradually to oral diet when medically appropriate. 4.) Refer pt to RD for further nutrition education and weight monitoring upon discharge. 5.) Continue current plan of care.
--- NOTE | 2019-08-11 11:57 | NUR ---
HOSPITALIST/NEPHROLOGY AT BEDSIDE DR MANZANARES/DR PALOMARES UPDATED ON PATIENT'S STATUS. ORDERS RECEIVED AND WILL BE CARRIED OUT.
[2019-08-11] MEDS ORDERED: LEVOFLOXACIN 250MG 50 ML IV ONE (12:00)
[2019-08-11] MEDS ORDERED: SODIUM CHL 3% 500 ML IV SCH (12:00)
[2019-08-11] MEDS ORDERED: POTASSIUM EFFERVESENT TAB 25 MEQ GT ONE (12:00)
--- NOTE | 2019-08-11 16:30 | NUR ---
PULMONOLOGY AT BEDSIDE DR THORNTON UPDATED ON PATIENT'S STATUS. ORDERS FOR "SEDATION HOLIDAY TOMORROW MORNING AND IF PATIENT DOES WELL, CPAP IN AM".
--- NOTE | 2019-08-11 17:42 | NUR ---
Family updated on pt status Family of CHANDRIKA BELL updated on patient's status and condition after password verification. All questions and concerns addressed. Jo-Ann verbalized understanding.
--- NOTE | 2019-08-11 19:07 | NUR ---
END OF SHIFT NOTE PATIENT MECHANICALLY VENTILATED, VSS AND DOCUMENTED. ENDORSED CONTINUED CARE TO MANAGER OF PROJECT MANAGEMENT RN.
--- NOTE | 2019-08-11 19:10 | NUR ---
OPENING NOTES ASSUMED CARE LAYING ON BED, STILL ON VENT AND SEDATION WITH FENTANYL @ 130 MCG/HR AND DOPAMINE @ 2 MCG/KG/MIN INFUSING IN THE RIGHT IJ, OCCASIONALLY OPENS HER EYES TO VOICE AND TOUCH, OGT AND FLEXISEAL IN PLACE, NULL CATHETER DRAINING TO A CLEAR, PALE YELLOW URINE, SCD'S ON BOTH LEGS. BED IN LOWEST POSITION WITH SIDE RAILS UP BED ALARM ON. WILL CONTINUE CARE.
[2019-08-12] VITALS (91 sets, daily range): BP systolic 74–129; BP diastolic 34–71
[2019-08-12] MEDS: ALBUTEROL SULF 2.5 MG/0.5ML(0.5%) NEB SOLN NEB SCH ×4 (00:14→18:12)
--- NOTE | 2019-08-12 03:51 | NUR ---
Patient bathe/linen change Patient given complete bath. Skin integrity assessed for any changes. Full linens and gown changed. Patient repositioned for comfort.
--- NOTE | 2019-08-12 03:52 | NUR ---
Oral care done, moisturizer applied to lips
--- NOTE | 2019-08-12 03:53 | NUR ---
Central Line Dressing Change Central line dressing change done with a sterile technique. Cleansed with chloraprep scrub/betadine. Stat lock, and bio-patch as available. Occlusive dressing applied.
--- NOTE | 2019-08-12 04:00 | NUR ---
IV IN THE LEFT HAND D/C. PRESSURE DRESSING APPLIED TO SITE.
[2019-08-12] MEDS: NOREPINEPHRINE 8 MG/250ML KIT 250 ML IV SCH (04:18)
[2019-08-12 04:20] LABS: Basophils # (auto) 0 uL; Basophils % (auto) 0.4 % (0.0-2.0); Eosinophils # (auto) 0.1 uL; Eosinophils % (auto) 1.3 % (0.0-7.0); Hematocrit 27.9 % (36.0-46.0); Lymphocytes # (auto) 0.7 uL; Lymphocytes % (auto) 11.5 % (10.0-50.0); Mean Corpuscular Hemoglobin 32.8 pg (28.0-32.0); Mean Corpuscular Hgb Conc. 35.8 g/dL (32.0-36.0); Mean Corpuscular Volume 91.7 fL (80.0-100.0); Monocytes # (auto) 0.5 uL; Monocytes % (auto) 7.5 % (0.0-12.0); Neutrophils # (auto) 4.9 uL; Neutrophils % (auto) 79.3 % (37.0-80.0); Nucleated Red Blood Cells % 0.1 %; Platelet Count (auto) 87 10^3/uL (140-450); Red Blood Cells 3.04 10^6/uL (4.0-5.20); Red Cell Distribution Width 14.7 % (11.8-14.3); White Blood Cell 6.2 10^3/uL (4.4-10.8)
[2019-08-12 04:40] LABS: Calcium 6.2 mg/dL (8.5-10.1)
[2019-08-12 04:43] LABS: BUN/Creatinine Ratio 10.3
[2019-08-12] MEDS: PROPOFOL 100 ML IV SCH ×2 (05:08→13:17)
--- NOTE | 2019-08-12 07:30 | NUR ---
OPENING SHIFT NOTE REPORT RECEIVED FROM HOSPITAL AIDE RN, MORNING ASSESSMENT PERFORMED AND DOCUMENTED. 59 YEAR OLD FEMALE, RESTING IN BED, MECHANICALLY VENTILATED AND SEDATED (see IV spreadsheet for details) SEDATION STOPPED FOR SEDATION HOLIDAY THIS MORNING. PATIENT ABLE TO OPEN EYES WHEN CALLED BY NAME, UNABLE TO FOLLOW COMMANDS AT THIS TIME. LUNGS SOUNDS CLEAR, LEFT NGT ASSESSED FOR POSITIVE PLACEMENT VIA AUSCULTATION AND MORNING CXR - NO RESIDUALS, FEEDING STOPPED FOR POSSIBLE CPAP THIS MORNING. BOWEL SOUNDS HYPERACTIVE. FLEXI-SEAL PATENT AND DRAINING SMALL LIQUID/GREEN BOWEL. NULL PATENT AND DRAINING CLEAR/YELLOW URINE TO GRAVITY. COMFORT MEASURES PROVIDED, EXTREMITIES OFF LOADED TO MAINTAIN SKIN INTEGRITY, FALL AND SAFETY PRECAUTIONS IN PLACE.
--- NOTE | 2019-08-12 08:15 | NUR ---
AMBULATION/ADLS PATIENT AMBULATED TWO TIMES AROUND ICU NURSE STATION WITH USE OF FWW AND ACCOMPANIED BY THIS NURSE. PATIENT BRUSHED HIS TEETH AND WASHED HIS FACE IN ROOM SINK. PATIENT SITTING UP IN BEDSIDE CHAIR, TOLERATED WELL - BREAKFAST PROVIDED. Addendum: 08/12/19 at 0900 by Simin Garcia RN MISTAKEN ENTRY - WRONG PATIENT.
--- NOTE | 2019-08-12 09:41 | NUR ---
CONTACT NEPHROLOGY SPOKE WITH DR PALOMARES, UPDATED ON PATIENT'S STATUS AND MORNING LABS. ORDERS RECEIVED AND CARRIED OUT.
[2019-08-12] MEDS ORDERED: POTASSIUM EFFERVESENT TAB 25 MEQ PO ONE (09:45)
[2019-08-12] MEDS: PANTOPRAZOLE 40 MG/10 ML VIAL INJ IV SCH (09:53)
[2019-08-12] MEDS: FLORASTOR (S. BOULARDII) 250 MG CAP PO SCH (09:53)
[2019-08-12] MEDS: LEVOFLOXACIN 250MG 50 ML IV SCH (09:53)
--- NOTE | 2019-08-12 10:57 | NUR ---
URINE SENT TO LAB URINE CREATININE/SODIUM
[2019-08-12] MEDS ORDERED: SUMA100T15 PO (11:30)
[2019-08-12] MEDS ORDERED: MONT10TA34 OR (11:30)
[2019-08-12] MEDS ORDERED: IBUP800T24 PO (11:30)
[2019-08-12] MEDS ORDERED: VITACAP OR (11:30)
--- NOTE | 2019-08-12 11:57 | NUR ---
HOSPITALIST/BONDING SUPERVISOR AT BEDSIDE DR PALOMARES/DR MANZANARES AT BEDSIDE, DR MANZANARES UPDATED ON PATIENT'S STATUS AND DISCUSSED PLAN OF CARE WITH PATIENT'S SPOUSE AGUSTIN. NO ORDERS RECEIVED AT THIS TIME.
[2019-08-12] MEDS: CALCIUM ACETATE 667 MG CAP PO SCH ×2 (12:00→17:46)
[2019-08-12 12:07] LABS: Creatinine, Urine 18 mg/dL (30.0-125.0); Sodium Urine 69 mmol/L (40-220)
--- NOTE | 2019-08-12 12:16 | NUR ---
Respiratory note: PT AWAKENS WITH STIMULATION BUT STILL LETHARGIC. ATTEMPTED CPAP TRIAL, PT FELL ASLEEP AND BECAME APNEIC. NOT READY AT THIS TIME. NOTIFIED RN BRANNON. WILL ATTEMPT AGAIN WHEN PT IS MORE AWAKE/ALERT.
--- NOTE | 2019-08-12 15:58 | NUR ---
Family updated on pt status Family of CHANDRIKA BELL updated on patient's status and condition after password verification. All questions and concerns addressed. Hugo verbalized understanding.
--- NOTE | 2019-08-12 18:52 | NUR ---
Family updated on pt status Family of CHANDRIKA BELL updated on patient's status and condition after password verification. All questions and concerns addressed. Hugo verbalized understanding.
--- NOTE | 2019-08-12 19:05 | NUR ---
END OF SHIFT NOTE MECHANICALLY VENTILATED PATIENT - NOT SEDATED, OPENS EYES WHEN CALLED BY NAME BUT NOT FOLLOWING COMMANDS AT THIS TIME. VSS AND DOCUMENTED, RESPIRATIONS EVEN AND UNLABORED. ENDORSED CONTINUED CARE TO RAMP SUPERVISOR RN.
--- NOTE | 2019-08-12 19:10 | NUR ---
OPENING NOTES ASSUMED CARE, LAYING ON BED STILL ON VENT, OFF SEDATION THIS TIME, OPENS EYES SPONTANEOUSLY TO VOICE AND TACTILE STIMULI, OGT IN PLACE INFUSING NEPRO @ 40ML/HR, DOPAMINE DRIP @ 2 MCG/KG/MIN INFUSING IN THE RIGHT IJ, NULL CATHETER DRAINING TO A CLEAR, PALE YELLOW URINE, SCD'S TO BOTH LEGS, FLEXISEAL IN PLACE. BED IN LOWEST POSITION WITH SIDE RAILS UP, BED ALARM ON. WILL CONTINUE TO MONITOR.
--- NOTE | 2019-08-12 21:30 | NUR ---
FOUND OUT MOVING HER ARMS, PULLED OUT CONNECTING TUBE FROM THE MACHINE AND WAS DISCONNECTED, DESATURATION 77% NOTED, RECONNECTED ETT TO THE MACHINE AND DELIVERED 100% O2, SPO2 WENT UP TO 98%. NO DISTRESS NOTED, RESTARTED FENTANYL @ 50 MCG/HR, MITTS APPLIED TO BOTH HANDS.
[2019-08-13] VITALS (101 sets, daily range): BP systolic 74–119; BP diastolic 32–78
--- NOTE | 2019-08-13 00:05 | NUR ---
SBP 70'S-80'S, NS 250ML IV BOLUS GIVEN.
[2019-08-13] MEDS: ALBUTEROL SULF 2.5 MG/0.5ML(0.5%) NEB SOLN NEB SCH ×4 (00:17→17:45)
--- NOTE | 2019-08-13 01:00 | NUR ---
VS REASSESSMENT, BP 106/56, HR 76, SPO2 96%.
--- NOTE | 2019-08-13 02:00 | NUR ---
TUBE FEEDING OFF FOR CPAP TRIAL
[2019-08-13 04:24] LABS: Basophils # (auto) 0 uL; Basophils % (auto) 0.2 % (0.0-2.0); Eosinophils # (auto) 0.1 uL; Eosinophils % (auto) 1.7 % (0.0-7.0); Hematocrit 26.6 % (36.0-46.0); Hemoglobin 9.5 g/dL (12.2-16.2); Lymphocytes % (auto) 13.9 % (10.0-50.0); Mean Corpuscular Hemoglobin 32.8 pg (28.0-32.0); Mean Corpuscular Hgb Conc. 35.6 g/dL (32.0-36.0); Mean Corpuscular Volume 92.1 fL (80.0-100.0); Monocytes # (auto) 0.7 uL; Monocytes % (auto) 9.6 % (0.0-12.0); Neutrophils # (auto) 5.1 uL; Neutrophils % (auto) 74.6 % (37.0-80.0); Nucleated Red Blood Cells % 0.1 %; Platelet Count (auto) 105 10^3/uL (140-450); Red Blood Cells 2.88 10^6/uL (4.0-5.20); Red Cell Distribution Width 15.3 % (11.8-14.3); White Blood Cell 6.9 10^3/uL (4.4-10.8)
[2019-08-13 04:45] LABS: BUN/Creatinine Ratio 11.7; Calcium 6.1 mg/dL (8.5-10.1)
[2019-08-13 04:58] LABS: Potassium 2.7 mmol/L (3.5-5.1)
--- NOTE | 2019-08-13 05:28 | NUR ---
PAGED DR. PALOMARES AND SPOKE THRU HIS EXCHANGE WITH RUPALI AND LEFT A MESSAGE FOR CRITICAL LAB VALUES. AWAITING CALL BACK.
--- NOTE | 2019-08-13 05:58 | NUR ---
DR. HICKS CALLED BACK, RELAYED CRITICAL K+ 2.7 AND UPDATED ON PT'S STATUS RE: LOW BP, NEW ORDERS MADE TO GIVE NS 500ML BOLUS AND K-RIDER 40MEQ X 2 DOSES, TOTAL OF 80 MEQ. WILL CARRY OUT AN ORDER AFTER BEING READ BACK AND VERIFIED.
[2019-08-13] MEDS ORDERED: SODIUM CHLORIDE 0.9% 500 ML IV ONE (06:00)
[2019-08-13] MEDS: POTASSIUM CHL 20MEQ/100ML 100 ML IV SCH ×4 (06:40→12:39)
--- NOTE | 2019-08-13 06:56 | NUR ---
NS 5OO ML IV BOLUS GIVEN, STARTED 1 BAG OF K RIDER 20 MEQ ORDERED. BP 88/46, HR 95, SPO2 99%.
--- NOTE | 2019-08-13 07:10 | NUR ---
OPENING NOTE SHIFT REPORT RECEIVED AND ASSUMED CARE OF PT FROM PABLO C[place]AND
[2019-08-13] MEDS: fentaNYL Drip 2500mCg/250mlNS 250 ML IV SCH (07:48)
--- NOTE | 2019-08-13 07:48 | NUR ---
RT NOTE: PT WAS PLACED ON CPAP AT THIS TIME. PRESSURE SUPPORT OF 8 PEEP 5, PT WAS ABLE TO FOLLOW SIMPLE COMMANDS BUT WAS NOT STAYING AWAKE FULLY. RR DECREASED TO 10, VT DECREASED TO 200-230 ML. PT WAS PLACED BACK ON PREVIOUS SETTINGS. WILL TRY CPAP AGAIN ONCE PT IS MORE AWAKE.
[2019-08-13] MEDS: CALCIUM ACETATE 667 MG CAP PO SCH ×3 (08:00→18:00)
[2019-08-13] MEDS: PROPOFOL 100 ML IV SCH ×2 (08:55→20:06)
[2019-08-13] MEDS: PANTOPRAZOLE 40 MG/10 ML VIAL INJ IV SCH (10:24)
[2019-08-13] MEDS: LEVOFLOXACIN 250MG 50 ML IV SCH (10:24)
[2019-08-13] MEDS: FLORASTOR (S. BOULARDII) 250 MG CAP PO SCH (10:24)
[2019-08-13] MEDS: DOPamine 1600MCG/ML D5W 250 ML IV SCH (10:26)
--- NOTE | 2019-08-13 11:36 | NUR ---
Nutrition Follow-up Notes Wt.: 89.1 kg Pt's intubated, sedated, no immediate family member at beside during rounds earlier. Pt's currently NPO with EN support on hold for CPAP per RN. pt was on of Nephro Carb Steady @ 30 ml/hr providing 1296 kcal, 59 gms pro and 523 ml free water. Est. Needs ABW [id number] kcal (23-25 kcal/kgBW), 55-69 gms pro (0.8-1.0 gms/kgBW r/t elev RFT CKD). Will continue to monitor pertinent labs and reassess nutrient need prn\ Labs: BUN 60 H, CREAT 5.63 H, ALB 1.9 L, CA 6.1 L. Skin: Donn scale 11, high risk, skin intact per sewing machine attachment tester. GI: Pt had 1 BM yesterday with 30 ml gastric drainage per sewing machine attachment tester. PES: Increased nutrient needs r/t acute/chronic medical condition aeb intubated, sedated, severe hypoalbuminemia, NPO with EN support. Altered nutrition related lab values r/t current/chronic medical condition aeb elev RFT hyperglycemia, mod hypoalb hypocalcemia Will continue to monitor NPO status, skin status, pertinent labs and weight trend. F/u in 2 to 3 days. Rec.: 1.) Resume EN feeds with Nephro Carb Steady to 40 ml/hr goal rate as tolerated when medically appropriate if pt fails CPAP. 2.) If renal labs continue trending up, not on dialysis, consider change EN formula to Jevity 1.2 Leif @ 55 ml/hr goal rate as tolerated if medically appropriate. 3.) Advance gradually to oral diet when medically appropriate. 4.) Refer pt to RD for further nutrition education and weight monitoring upon discharge. 5.) Continue current plan of care.
--- NOTE | 2019-08-13 12:10 | NUR ---
DR. GUZMAN AT BEDSIDE ORDERS RECEIVED
--- NOTE | 2019-08-13 13:20 | NUR ---
PT EXTUBATED AT THIS TIME WITH RESPIRATORY AND THIS RN AT BEDSIDE. PT IS TAKING DEEP BREATHS, VITAL SIGNS HR 89, BP 112/59, RR 10, O2SAT 96%. PT IS TOLERATING WELL. WILL CONTINUE TO MONITOR
[2019-08-13] MEDS: ACETAMINOPHEN 325 MG TAB PO PRN (14:30)
--- NOTE | 2019-08-13 15:30 | NUR ---
PT IS ABLE TO TOLERATE ICE CHIPS AND SIPS OFF WATER WITH MEDICATION. WILL CONTINUE TO MONITOR
--- NOTE | 2019-08-13 16:00 | NUR ---
PT HAS BEEN CALLING , [facility], AND [id number] TO TRY TO GET PRESCRIPTION NARCOTICS BROUGHT TO HER. COIN BOX COLLECTOR CONSULT PUT IN FOR POSSIBLE REHAB/RESOURCES/SERVICES FOR SUBSTANCE ABUSE.
[2019-08-13] MEDS: ALBUMIN 25% 100 ML IV SCH ×2 (16:18→22:16)
--- NOTE | 2019-08-13 18:50 | NUR ---
PT STATES SHE WANTS TO LEAVE AMA IF SHE CAN BECAUSE SHE NEEDS TO SLEEP AT HOME AND GET HER PAIN MEDICATION. SPOKE WITH AND SHE IS CONSTANTLY CALLING HOME TO GET PAIN MEDICATION. WILL ADVISE ONCOMING NURSE OF PT'S BEHAVIOR.
--- NOTE | 2019-08-13 19:25 | NUR ---
CLOSING NOTE SHIFT REPORT GIVEN AND CARE ENDORSED TO KAY CLEVELAND
[2019-08-14] VITALS (26 sets, daily range): BP systolic 90–121; BP diastolic 39–64
[2019-08-14] MEDS: ACETAMINOPHEN 325 MG TAB PO PRN (00:01)
[2019-08-14] MEDS: ALBUTEROL SULF 2.5 MG/0.5ML(0.5%) NEB SOLN NEB SCH ×4 (00:06→18:29)
--- NOTE | 2019-08-14 00:16 | NUR ---
WHEN PT IS SLEEPING HER B/P GOES TO LOW 90'S AND RESPIRATIONS DROP TO 6 / 7 . PT REQUESTING PAIN MED. AND SLEEPING PILL . EXPLAINED TO HER ABOUT HER V/S AND WHY I CANT GIVE ANY MEDS.
[2019-08-14] MEDS: HYDROcodone-ACET 7.5/325MG TAB PO PRN ×3 (03:34→18:19)
[2019-08-14 03:38] LABS: Basophils # (auto) 0 uL; Basophils % (auto) 0.3 % (0.0-2.0); Eosinophils # (auto) 0.2 uL; Eosinophils % (auto) 3.1 % (0.0-7.0); Hematocrit 25.1 % (36.0-46.0); Hemoglobin 8.8 g/dL (12.2-16.2); Lymphocytes # (auto) 0.9 uL; Lymphocytes % (auto) 11.7 % (10.0-50.0); Mean Corpuscular Hemoglobin 32.7 pg (28.0-32.0); Mean Corpuscular Hgb Conc. 35.1 g/dL (32.0-36.0); Mean Corpuscular Volume 93.2 fL (80.0-100.0); Monocytes # (auto) 0.6 uL; Monocytes % (auto) 8.5 % (0.0-12.0); Neutrophils # (auto) 5.7 uL; Neutrophils % (auto) 76.4 % (37.0-80.0); Platelet Count (auto) 105 10^3/uL (140-450); Red Cell Distribution Width 15.1 % (11.8-14.3); White Blood Cell 7.5 10^3/uL (4.4-10.8)
[2019-08-14 04:05] LABS: BUN/Creatinine Ratio 13.5
[2019-08-14 04:53] LABS: Calcium 5.8 mg/dL (8.5-10.1); Potassium 2.7 mmol/L (3.5-5.1)
[2019-08-14] MEDS: POTASSIUM CHL 20MEQ/100ML 100 ML IV SCH ×4 (06:43→15:26)
[2019-08-14] MEDS: CALCIUM ACETATE 667 MG CAP PO SCH (08:00)
--- NOTE | 2019-08-14 08:08 | NUR ---
Assumed care of patient. Patient is awake and alert. Vital signs are stable. Dopamine gtt infusing per protocol. See spreadsheet for titration. No s/s of distress noted. Patient attached to all bedside monitors, safety measures in place. Patient advised of POC and to call for assistance PRN. Patient verbalized understanding. Bed in lowest locked position with side rails up X2. Safety maintained, will continue to monitor for Q1hr and PRN.
--- NOTE | 2019-08-14 08:24 | NUR ---
SBAR report given to CRISTOFER Banda.
--- NOTE | 2019-08-14 10:00 | NUR ---
Medication dosages, usages, and side effects explained to patient. Patient verbalized understanding. Will continue to monitor.
[2019-08-14] MEDS: LEVOFLOXACIN 250MG 50 ML IV SCH (10:30)
[2019-08-14] MEDS: FLORASTOR (S. BOULARDII) 250 MG CAP PO SCH (10:30)
[2019-08-14] MEDS: PANTOPRAZOLE 40 MG/10 ML VIAL INJ IV SCH (10:30)
[2019-08-14] MEDS ORDERED: CALCIUM CHL 100MG/ML 1,000 MG in D5W 5% 100 ML IV ONE (11:00)
[2019-08-14] MEDS ORDERED: FLUCONAZOLE 100 MG TAB PO ONE (12:15)
--- NOTE | 2019-08-14 12:30 | NUR ---
Patient sitting up in bed eating lunch independently. Will continue to monitor.
[2019-08-14] MEDS: SEVELAMER 800 MG TAB PO SCH ×2 (12:41→18:03)
--- NOTE | 2019-08-14 12:45 | NUR ---
Dr. Rain at bedside. Patient requesting rectal tube be removed. Dr. Rain said ok to remove rectal tube. D/C Dopamine drip. Patient has some redness on bilateral upper arm, Dr. Rain aware. Will continue to monitor.
[2019-08-14] MEDS: MAGNESIUM SULFATE 1GM/100ML 100 ML IV SCH ×2 (12:56→15:26)
--- NOTE | 2019-08-14 14:30 | NUR ---
Patient still having diarrhea. Patient cleaned and repositioned. Patient unable to make it to bedpan. Will continue to monitor.
--- NOTE | 2019-08-14 15:00 | NUR ---
Midline Placement: Patient educated on need for midline placement. All risks and benefits explained and all questions and concerns addresses prior to procedure. 18g/10cm midline inserted via left cephalic vein using Ultrasound. Sterile technique utilized. Blood return obtained from lumen and flushed easily with NS using proper technique. Midline secured with saline lock; biodisc and occlusive dressing applied. Primary RN notified. Midline lot #[id number]
[2019-08-14] MEDS: ALBUMIN 25% 100 ML IV SCH ×2 (15:35→22:37)
--- NOTE | 2019-08-14 16:45 | NUR ---
Patient still having diarrhea. Patient cleaned and repositioned. Patient unable to make it to bedpan. Will continue to monitor.
--- NOTE | 2019-08-14 17:41 | NUR ---
Patient still having diarrhea. Patient cleaned and repositioned. Patient unable to make it to bedpan. 3rd watery stool in 24 hours, stool sample for c-diff sent. Will continue to monitor.
--- NOTE | 2019-08-14 18:30 | NUR ---
End of shift note: Patient sitting up in bed eating dinner independently. Patient A&Ox4. Patient on the monitor. Patient on 2L NC saturation at 98%. IV left upper arm midline saline locked, patent, clean, dry, and intact. Right IJ triple lumen removed, catheter intact, dressing placed, no bleeding noted from the site. Velez to gravity. No S/S of pain/SOB or distress noted. Bed locked and in the lowest position, side rails up x2, call light with in reach. Report to be given to accounting professional RN. Will continue to monitor.
[2019-08-14] MEDS ORDERED: BUMETANIDE INJECTION 25 MG in GIVE UN-DILUTED 0 ML IV SCH (19:00)
[2019-08-15] MEDS: ALBUTEROL SULF 2.5 MG/0.5ML(0.5%) NEB SOLN NEB SCH ×4 (00:44→18:53)
[2019-08-15] MEDS: POTASSIUM CHL 20MEQ/100ML 100 ML IV SCH ×2 (00:46→02:19)
[2019-08-15] MEDS: HYDROcodone-ACET 7.5/325MG TAB PO PRN ×4 (00:46→18:54)
--- NOTE | 2019-08-15 00:47 | NUR ---
PM CARE COMPLETE BED BATH PROVIDED USING CHG WIPES AND WARM WASH CLOTHS. NULL CARE PROVIDED, REDNESS AND MACERATION NOTED ON PERINEAL AREA AND PERIRECTAL AREA, ZGUARD BARRIER CREAM PLACED TO AFFECTED AREAS. RED AND HOT AREAS NOTED UNDER BILATERAL ARMS AND LOWER EXTREMITIES, PATIENT DENIES PAIN WHEN TOUCHED, PER DAY SHIFT RN DR GUZMAN IS AWARE AND STATES IT IS MOST LIKELY FUNGAL RELATED. ANTIFUNGAL CREAM APPLIED TO AFFECTED AREAS. PARTIAL LINEN CHANGE DONE, NEW GOWN PLACED ON PATIENT AND PATIENT REPOSITIONED FOR COMFORT. CALL LIGHT GIVEN TO PATIENT. PATIENT TITRATED OFF OXYGEN AND NOTED TO BE AT 99% ON RA. WILL CONTINUE TO MONITOR PATIENT.
[2019-08-15] MEDS: TEMAZEPAM 15 MG CAP PO PRN ×2 (01:00→23:13)
[2019-08-15 04:00] VITALS: BP 123/49
[2019-08-15 05:45] LABS: Basophils # (auto) 0 uL; Basophils % (auto) 0.5 % (0.0-2.0); Eosinophils # (auto) 0.4 uL; Eosinophils % (auto) 4.6 % (0.0-7.0); Hematocrit 27.2 % (36.0-46.0); Hemoglobin 9.5 g/dL (12.2-16.2); Lymphocytes # (auto) 1.4 uL; Lymphocytes % (auto) 17.5 % (10.0-50.0); Mean Corpuscular Hemoglobin 32.8 pg (28.0-32.0); Mean Corpuscular Hgb Conc. 34.9 g/dL (32.0-36.0); Monocytes # (auto) 0.7 uL; Monocytes % (auto) 8.6 % (0.0-12.0); Neutrophils # (auto) 5.4 uL; Neutrophils % (auto) 68.8 % (37.0-80.0); Platelet Count (auto) 153 10^3/uL (140-450); Red Blood Cells 2.89 10^6/uL (4.0-5.20); Red Cell Distribution Width 14.9 % (11.8-14.3); White Blood Cell 7.8 10^3/uL (4.4-10.8)
[2019-08-15 06:18] LABS: BUN/Creatinine Ratio 16.1; Calcium 7.5 mg/dL (8.5-10.1); Magnesium 2.2 mg/dL (1.6-2.6); Potassium 3.1 mmol/L (3.5-5.1)
--- NOTE | 2019-08-15 06:48 | NUR ---
PATIENT HAD EPISODE STOOL INCONTINENCE. NOTED TO BE MODERATE AMOUNT OF GREENISH DIARRHEA.PERINEAL AREA CLEANSED, NEW GOWN PLACED ON PATIENT AND PARTIAL BED LINEN CHANGE DONE. PATIENT REPOSITIONED IN BED FOR COMFORT. CALL LIGHT GIVEN TO PATIENT.
--- NOTE | 2019-08-15 06:55 | NUR ---
END OF SHIFT PATIENT AWAKE IN BED WITH NO S/S OF DISTRESS OR SOB, ON RA POX 98, HR 82, RR14. REMAINED STABLE THROUGHOUT THE NIGHT, WILL CONTINUE MONITORING AND ENDORSE CARE TO DAY SHIFT RN.
[2019-08-15 08:00] VITALS: BP 124/76
[2019-08-15] MEDS: SEVELAMER 800 MG TAB PO SCH ×3 (08:05→17:58)
[2019-08-15] MEDS ORDERED: PANTOPRAZOLE 40 MG TAB PO SCH (10:00)
[2019-08-15] MEDS: LEVOFLOXACIN 250MG 50 ML IV SCH (10:09)
[2019-08-15] MEDS: FLUCONAZOLE 100 MG TAB PO SCH (10:10)
--- NOTE | 2019-08-15 11:35 | NUR ---
Nutrition Follow-up Notes Wt.: 89.1 kg Pt's room curtain's closed, RN at bedside during rounds earlier. Noted pt's successfully extubated (08/13/19), on oxygen via nasal cannula, no signs of distress noted by RN this morning. Pt's off from EN support, currently on Mechanical Soft Cardiac: 2 gms Na, Low Chol, Low Fat diet with fair PO intake aeb 70% ave. consumed meals (x5) in last 2 days. Est. Needs ABW [id number] kcal (23-25 kcal/kgBW), 55-69 gms pro (0.8-1.0 gms/kgBW r/t elev RFT CKD). Will continue to monitor pertinent labs and reassess nutrient need prn Labs: K 3. 1 L, BUN 44 H, Cr 2.74 H, Ca 7.8 L, Tpro 4.4 L, Alb 1.9 L Skin: Donn scale 14, mod risk, pt's medial sacrum skin tear per instructor robotics. Pls refer to mgmt specialist's notes for further details re: tx plans. GI: Pt had 1 BM 08/11/19 per instructor robotics. PES: Partially Resolved: Increased nutrient needs r/t acute/chronic medical condition aeb intubated, sedated, severe hypoalbuminemia, NPO with EN support. Altered nutrition related lab values r/t current/chronic medical condition aeb elev RFT hyperglycemia, mod hypoalb hypocalcemia Will continue to monitor PO intake, skin status, pertinent labs and weight trend. F/u in 3 to 5 days. Rec.: 1.) Continue close supervision and feeding assistance prn during meals. 2.) If Albumin continues trending down with improved renal labs, consider Prostat 1 pkt BID. 3.) Consider daily MVI with minerals and Asc acid 500 mgs BID. 4.) Refer pt to CDE/RD for further nutrition education and weight monitoring upon discharge. 5.) Continue current plan of care.
[2019-08-15 12:00] VITALS: BP 121/77
--- NOTE | 2019-08-15 13:00 | NUR ---
DR. BERNAL HERE TO SEE PATIENT. SEE MD NOTES AND EMR FOR ANY NEW ORDERS.
--- NOTE | 2019-08-15 13:15 | NUR ---
DR. MONAE HERE TO SEE PATIENT. SEE MD NOTES AND EMR FOR ANY NEW ORDERS.
[2019-08-15] MEDS ORDERED: POTASSIUM CHL 20 Meq TABLET PO ONE (13:30)
--- NOTE | 2019-08-15 14:07 | NUR ---
MICROBIOLOGY CALLED PT IS POSITIVE FOR C.DIFF. RN AWARE. WILL BE TRANSFERRED TO 202
--- NOTE | 2019-08-15 14:20 | NUR ---
SRINIVAS pt transferred to floor CHANDRIKA BELL transfered to via rneY. All patient medications and personal belongings transfered with patient to receiving floor. Patient care transfered to 202.
[2019-08-15 14:45] VITALS: BP 123/74
[2019-08-15 16:37] VITALS: BP 124/66
--- NOTE | 2019-08-15 20:01 | NUR ---
Opening Shift Note Assumed care of patient, awake and alert. No S/S of distress/SOB or pain. Instructed on POC and to call for assist PRN, will continue to monitor for changes Q1hr and PRN.
[2019-08-15] MEDS: metroNIDAZOLE 500 MG TAB PO SCH (21:29)
[2019-08-15 22:00] VITALS: BP 150/83
[2019-08-16] MEDS: ALBUTEROL SULF 2.5 MG/0.5ML(0.5%) NEB SOLN NEB SCH ×4 (00:02→18:05)
[2019-08-16] MEDS: HYDROcodone-ACET 7.5/325MG TAB PO PRN ×4 (00:27→19:57)
[2019-08-16 05:00] VITALS: BP 125/68
[2019-08-16] MEDS: metroNIDAZOLE 500 MG TAB PO SCH ×3 (05:17→21:44)
[2019-08-16 06:49] LABS: BUN/Creatinine Ratio 17.5; Calcium 7.9 mg/dL (8.5-10.1)
[2019-08-16 06:50] LABS: Potassium 2.9 mmol/L (3.5-5.1)
--- NOTE | 2019-08-16 06:50 | NUR ---
Paged Albert Little, for result of pot. of 2.9, and answered, and relayed the result with order of pot.k-rider i.v. of 20meq every hour x 2, then repeat pot. after.
[2019-08-16] MEDS ORDERED: POTASSIUM CHL 20MEQ/100ML 100 ML IV SCH ×2 (07:00→11:15)
--- NOTE | 2019-08-16 07:16 | NUR ---
report given to David Danielle, patient is resting no distress.
--- NOTE | 2019-08-16 07:29 | NUR ---
Opening Note Assumed pt care from [facility] nurse. Pt is a/ox4 with no s/s of distress or SOB. Pt is currently sitting upright in bed with no complaints. Discussed POC with pt; pt verbalized understanding. IV potassium currently running; bag 1/2. Discussed POC with pt; pt verbalized understanding. Safety measures maintained with call light within reach, bed in lowest position and side rails up. Will continue to monitor for changes q1hr and prn.
[2019-08-16] MEDS: SEVELAMER 800 MG TAB PO SCH ×3 (07:59→17:24)
[2019-08-16 08:30] VITALS: BP 136/55
[2019-08-16] MEDS: FLUCONAZOLE 100 MG TAB PO SCH (09:20)
[2019-08-16] MEDS: LEVOFLOXACIN 250MG 50 ML IV SCH (09:20)
--- NOTE | 2019-08-16 09:55 | NUR ---
Liu Catheter D/C'ed Pt's liu catheter was removed without difficulty. 300mL output drained before removal. Pt instructed on need to void. Pt verbalized understanding. Erythema noted to pt's skin on inner thighs; placed z-guard to skin and will continue to monitor. Addendum: 08/16/19 at 1616 by LOIS FIELDS RN RN Pt voided without difficulty.
[2019-08-16 12:30] VITALS: BP 140/74
--- NOTE | 2019-08-16 16:15 | NUR ---
WOUND CARE NOTE: Weekly reevaluation by wound care team. Patient previously on skin integrity monitoring due to intubation and low Donn score. Patient is now MEDSURG status and is in room 202A. Patient is alert and denies pain. Last Donn score is 20. Patient with dermatitis due to incontinence to stool. Nursing apply ZGUARD PRN soiling. Patient able to assist with repositioning. RECOMMENDATIONS: Nursing to continue with previous wound/skin care orders; no further need by wound care team.
[2019-08-16 17:00] VITALS: BP 127/79
[2019-08-16] MEDS: ACETAMINOPHEN 325 MG TAB PO PRN (17:24)
--- NOTE | 2019-08-16 19:57 | NUR ---
Opening Shift Note Assumed care of patient, awake and alert. No S/S of distress/SOB c/o back pain 05/30. Instructed on POC and to call for assist PRN, will continue to monitor for changes Q1hr and PRN.Medicated with one tab. of [place] 7/325mg.p.o. as needed.
[2019-08-16 22:00] VITALS: BP 139/83
[2019-08-17] MEDS: ALBUTEROL SULF 2.5 MG/0.5ML(0.5%) NEB SOLN NEB SCH ×5 (00:18→23:48)
[2019-08-17] MEDS: HYDROcodone-ACET 7.5/325MG TAB PO PRN ×4 (02:07→20:05)
[2019-08-17 03:04] VITALS: BP 139/83
[2019-08-17 05:00] VITALS: BP 145/77
[2019-08-17] MEDS: metroNIDAZOLE 500 MG TAB PO SCH ×3 (05:39→22:13)
--- NOTE | 2019-08-17 07:02 | NUR ---
Care report given to David Hill , patient is resting no distress.
--- NOTE | 2019-08-17 07:35 | NUR ---
Opening Note Assumed pt care from [facility] nurse. Pt is a/ox4 with no s/s of distress or SOB. PT is currently sitting upright in bed with no complaints other than a generalized GREER; discussed the next available pain medication. Discussed POC with pt; pt verbalized understanding. Safety measures maintained with call light within reach, bed in lowest position and side rails up. Will continue to monitor for changes q1hr and prn.
[2019-08-17] MEDS: SEVELAMER 800 MG TAB PO SCH (08:13)
[2019-08-17] MEDS: FLUCONAZOLE 100 MG TAB PO SCH (08:33)
[2019-08-17] MEDS: LEVOFLOXACIN 250MG 50 ML IV SCH (08:33)
[2019-08-17 09:00] VITALS: BP 141/70
--- NOTE | 2019-08-17 09:25 | NUR ---
Dr Ball At Bedside MD spoke with pt about possible discharge tomorrow AM. New orders given. Will implement and continue to monitor.
[2019-08-17] MEDS: LEVOFLOXACIN 500 MG TAB PO SCH (09:55)
[2019-08-17] MEDS: FLORASTOR (S. BOULARDII) 250 MG CAP PO SCH (09:59)
[2019-08-17] MEDS: POTASSIUM EFFERVESENT TAB 25 MEQ PO SCH ×2 (10:08→13:39)
[2019-08-17 12:00] VITALS: BP 142/86
[2019-08-17 17:00] VITALS: BP 134/77
--- NOTE | 2019-08-17 19:26 | NUR ---
Opening Shift Note Assumed care of patient, awake and alert x 4. No S/S of distress/SOB. Bed is in lowest position and locked. Call light within reach. Contact precautions in place. Bedside commode available. Instructed on POC and to call for assist PRN, will continue to monitor for changes Q1hr and PRN.
[2019-08-17 21:46] VITALS: BP 148/82
[2019-08-17] MEDS: TEMAZEPAM 15 MG CAP PO PRN (23:28)
[2019-08-18] MEDS: HYDROcodone-ACET 7.5/325MG TAB PO PRN ×2 (02:07→09:08)
[2019-08-18] MEDS: ALBUTEROL SULF 2.5 MG/0.5ML(0.5%) NEB SOLN NEB SCH ×2 (05:33→11:31)
[2019-08-18] MEDS: metroNIDAZOLE 500 MG TAB PO SCH ×2 (05:40→13:36)
[2019-08-18 05:45] VITALS: BP 142/79
[2019-08-18 05:45] LABS: Calcium 7.5 mg/dL (8.5-10.1)
[2019-08-18 05:48] LABS: BUN/Creatinine Ratio 13.3
[2019-08-18 09:00] VITALS: BP 134/72
[2019-08-18] MEDS: LEVOFLOXACIN 500 MG TAB PO SCH (09:06)
[2019-08-18] MEDS: FLUCONAZOLE 100 MG TAB PO SCH (09:06)
[2019-08-18] MEDS: FLORASTOR (S. BOULARDII) 250 MG CAP PO SCH (09:06)
[2019-08-18] MEDS ORDERED: POTASSIUM CHL 20 Meq TABLET PO ONE (10:15)
--- NOTE | 2019-08-18 11:47 | NUR ---
D/C planning Per consult to arrange transportation. Contacted [employer]:) spoke to Rody. Advised Rody from [employer] to arrange transportation at 14:00 via wheelchair with oxygen. Per Rody from [employer] milk pickup driver time will be between 14:00-14:15 via wheelchair with oxygen confirmation # [id number]. Informed RN Lauryn. Addendum: 08/18/19 at 1153 by BAKARI MOTA Amended: Links added.
[2019-08-18 13:00] VITALS: BP 150/73
--- NOTE | 2019-08-18 13:16 | NUR ---
PT STATED SHE IS MISSING 2 RINGS. CALL PLACED TO MARIIA OLIVEIRA, MESSAGE LEFT. AT THIS TIME AWAITING RETURN CALL. PT AWARE.
[2019-08-18] MEDS ORDERED: POTASSIUM EFFERVESENT TAB 25 MEQ PO SCH (14:00)
--- NOTE | 2019-08-18 16:00 | NUR ---
pt discharged home via ambulance. notified via telephone.
== END 2019-08-18 15:30 | disposition home or self-care (01) | DRG 720 ==
LOC: EDBD 21:21 → ER 21:25 → OVERFLOW 21:26 → ICU WEST 08-07 09:54 → DOU IN ICU 08-14 08:51 → TELE-CENTR 08-15 14:32 → CENTRAL 08-15 22:55
PROVIDERS: ADMIT Nurse Practitioner; ATTEND Internal Medicine
PROC: 5A1955Z Respiratory Ventilation, Greater than 96 Consecutive Hours (ICD-10-PCS; principal; 2019-08-07)
PROC: 0BH17EZ Insertion of Endotracheal Airway into Trachea, Via Natural or Artificial Opening (ICD-10-PCS; 2019-08-07)
PROC: 5A09357 Assistance with Respiratory Ventilation, Less than 24 Consecutive Hours, Continuous Positive Airway Pressure (ICD-10-PCS; 2019-08-13)
PROC: 02HV33Z Insertion of Infusion Device into Superior Vena Cava, Percutaneous Approach (ICD-10-PCS; 2019-08-13)
PROC: B548ZZA Ultrasonography of Superior Vena Cava, Guidance (ICD-10-PCS; 2019-08-13)
DX: A41.51 Sepsis due to Escherichia coli [E. coli] (principal); J96.01 Acute respiratory failure with hypoxia; N17.0 Acute kidney failure with tubular necrosis; R65.21 Severe sepsis with septic shock; J15.211 Pneumonia due to Methicillin susceptible Staphylococcus aureus; D69.6 Thrombocytopenia, unspecified; E87.4 Mixed disorder of acid-base balance; E83.39 Other disorders of phosphorus metabolism; E44.0 Moderate protein-calorie malnutrition; J44.0 Chronic obstructive pulmonary disease with (acute) lower respiratory infection; A04.72 Enterocolitis due to Clostridium difficile, not specified as recurrent; D64.9 Anemia, unspecified; E87.6 Hypokalemia; E87.1 Hypo-osmolality and hyponatremia; F32.9 Major depressive disorder, single episode, unspecified; J98.11 Atelectasis; H54.62 Unqualified visual loss, left eye, normal vision right eye; E83.51 Hypocalcemia; G89.29 Other chronic pain; I12.9 Hypertensive chronic kidney disease with stage 1 through stage 4 chronic kidney disease, or unspecified chronic kidney disease; N12 Tubulo-interstitial nephritis, not specified as acute or chronic; N18.2 Chronic kidney disease, stage 2 (mild); Z68.29 Body mass index [BMI] 29.0-29.9, adult; Z81.1 Family history of alcohol abuse and dependence; Z86.73 Personal history of transient ischemic attack (TIA), and cerebral infarction without residual deficits
CPT/HCPCS: 36415; 36600; 70450; 71045; 80048; 80053; 81001; 82550; 82570; 82805; 82962; 83605; 83735; 83880; 84100; 84132; 84300; 84484; 85007; 85025; 85027; 85610; 85730; 87040; 87070; 87077; 87081; 87086; 87088; 87186; 87205; 87493; 87804; 93005; 94002; 94003; 94640; 96361; 96365; 96366; 96375; 96376; 97116; 97163; 97530; 99291; A4618; C9113; G0378; J0330; J0610; J0690; J0696; J2250; J2405; J2543; J2590; J2704; J3480; J7060; P9047

== ENCOUNTER 2020-06-28 01:34 | Inpatient (IN) | payer OTHER, MEDICAID ==
[~2020-06-28] VITALS: Ht 157.5 cm; Wt 88.0 kg
[~2020-06-28 01:34] MED LIST changes: -ALBU1SYP PO; +ALBU2SYP10 PO; -FAM20T PO; +FAMO20TA10 PO; +IBUP800T24 PO; +MONT10TA34 OR; +NITR-87 PO; -NITR100C44 PO; +SUMA100T15 PO; +VITACAP OR
[2020-06-28 04:17] LABS: Eosinophils # (auto) 0.4 10 ^3/uL (0-0.8); Mean Corpuscular Volume 87.4 fL (80.0-100.0)
[2020-06-28 04:19] LABS: Basophils # (auto) 0.1 10 ^3/uL (0-0.2); Basophils % (auto) 1.2 % (0.0-2.0); Eosinophils % (auto) 3.2 % (0.0-7.0); Hematocrit 35.5 % (36.0-46.0); Hemoglobin 11.8 g/dL (12.2-16.2); Lymphocytes # (auto) 2.2 10 ^3/uL (0.4-5.4); Lymphocytes % (auto) 18.2 % (10.0-50.0); Mean Corpuscular Hemoglobin 29.1 pg (28.0-32.0); Mean Corpuscular Hgb Conc. 33.3 g/dL (32.0-36.0); Monocytes % (auto) 8.6 % (0.0-12.0); Neutrophils # (auto) 8.3 10 ^3/uL (1.6-8.6); Neutrophils % (auto) 68.8 % (37.0-80.0); Nucleated Red Blood Cells % 0.3 %; Platelet Count (auto) 554 10^3/uL (140-450); Red Blood Cells 4.06 10^6/uL (4.0-5.20); Red Cell Distribution Width 18.3 % (11.8-14.3)
[2020-06-28 04:34] LABS: Albumin 3.3 g/dL (3.4-5.0); Calcium 9.3 mg/dL (8.5-10.1)
[2020-06-28 04:49] LABS: BUN/Creatinine Ratio 15.5; Bilirubin, Total 0.3 mg/dL (0.2-1.0); Total Protein 7.4 g/dL (6.4-8.2)
[2020-06-28 04:51] LABS: INR 0.92 (0.9-1.15); Potassium 1.7 mmol/L (3.5-5.1)
[2020-06-28] MEDS ORDERED: POTASSIUM EFFERVESENT TAB 25 MEQ PO ONE (05:00)
[2020-06-28] MEDS: POTASSIUM CHL 20MEQ/100ML 100 ML IV SCH ×2 (05:19→08:39)
[2020-06-28] MEDS ORDERED: ONDANSETRON HCL 4 MG/2 ML VIAL IV PRN (06:15)
[2020-06-28] MEDS ORDERED: MORPHINE SULF INJ 2 MG/ML SYRINGE 1ML IV PRN (06:15)
[2020-06-28] MEDS ORDERED: ACETAMINOPHEN 325 MG TAB PO PRN (06:15)
[2020-06-28] MEDS ORDERED: NITROGLYCERIN 0.4 MG SL TAB SL PRN (06:15)
[2020-06-28] MEDS ORDERED: SODIUM CHLORIDE 0.9% 500 ML IV ONE (06:15)
[2020-06-28] MEDS: HYDROcodone-ACET 5/325MG TAB PO PRN ×2 (06:47→12:25)
[2020-06-28 07:06] LABS: Urine Bacteria FEW /hpf (None Seen); Urine Blood 3+ /uL (Negative); Urine Specific Gravity 1.017 (1.001-1.035); Urine WBC 35 /hpf (0 - 5)
--- NOTE | 2020-06-28 08:39 | NUR ---
Telemetry admit from ER RAYCHANDRIKA admitted to Telemetry unit after SBAR received. Patient oriented to Annette Bone, primary RN, unit, room, bed, and unit policies regarding patient care and visiting hours. Patient now on continuous telemetry monitoring, tele box # 60 and telemetry reading on arrival to unit is sinus rhythm with depressed ST. Patient denies need for bedside oxygen, VSS. Pt weighed by bedscale and encouraged to call if they need something. All questions and concerns addressed, patient verbalized understanding. No acute distress or sob noted, call ligth within reach and fall precs in place per protocol.
[2020-06-28] MEDS: D5W/ SOD CHL 0.9%/KCL 20MEQ 1,000 ML IV SCH ×2 (09:23→21:35)
[2020-06-28] MEDS ORDERED: HYDR-3682 PO (09:26)
[2020-06-28] MEDS ORDERED: HYDR50TA69 PO (09:26)
[2020-06-28] MEDS ORDERED: NORT25CA PO (09:26)
[2020-06-28 09:29] VITALS: BP 134/78
[2020-06-28] MEDS: SODIUM BICARBONATE 650 MG TAB PO SCH ×2 (09:48→21:35)
[2020-06-28] MEDS: ASPirin 81 mg TAB PO SCH (09:48)
[2020-06-28] MEDS: FAMOTIDINE 20 MG TAB PO SCH (09:48)
[2020-06-28] MEDS: ENOXAPARIN SOD 40 MG/0.4 ML SYRINGE SC SCH (09:48)
[2020-06-28] MEDS ORDERED: ALBUAER3 IN (10:31)
[2020-06-28] MEDS ORDERED: ALBU0.084 NEB (10:31)
[2020-06-28] MEDS ORDERED: NORT50CA57 PO (10:32)
[2020-06-28] MEDS ORDERED: IBUP200C14 PO (10:33)
[2020-06-28] MEDS ORDERED: SUMA100T15 PO (10:35)
[2020-06-28] MEDS ORDERED: IPRA0.00 IN (10:38)
--- NOTE | 2020-06-28 11:28 | NUR ---
Critical lab potassium 1.8, MD Thornton notified new order received for klor con 40meq po once and krider 20meq iv once now. Spoke to Drapery Cutter Machine Dr Carmona and aware of patient's status including abnormal labs, new orders received for Aldactone 100 po once. Will medicate as ordered and cont care. Patient resting comfortably in bed denies cp, denies n/v.
[2020-06-28 11:29] LABS: Potassium 1.8 mmol/L (3.5-5.1)
[2020-06-28] MEDS ORDERED: SPIRONOLACTONE 25 MG TAB PO ONE (11:45)
[2020-06-28] MEDS ORDERED: POTASSIUM CHL 20MEQ/100ML 100 ML IV ONE (11:45)
[2020-06-28] MEDS ORDERED: POTASSIUM CHL 20 Meq TABLET PO ONE (11:45)
[2020-06-28 13:00] VITALS: BP 128/60
[2020-06-28 14:33] LABS: Alcohol, Urine < 3.0 mg/dL (0-10); Amphetamine Screen, Urine NEGATIVE (NEGATIVE); Barbiturate Scree,Urine NEGATIVE (NEGATIVE); Benzodiazephine Screen, Urine NEGATIVE (NEGATIVE); Cannabinoid Screen, Urine NEGATIVE (NEGATIVE); Cocaine Screen, Urine NEGATIVE (NEGATIVE); Opiate Scree,Urine NEGATIVE (NEGATIVE); Phencyclidine Screen, Urine NEGATIVE (NEGATIVE)
[2020-06-28 17:00] VITALS: BP 132/84
--- NOTE | 2020-06-28 17:40 | NUR ---
Critical potassium reported to Dr Salgado, ventilation mechanic physician. New orders received to administer 60meq potassium rider with Lidocaine now and redraw potassium 6hours after infusion. Orders already in place for 0400 for cbc and CMP. Awaiting pharmacy to send Krider with lido at this time. Cont care
[2020-06-28] MEDS ORDERED: POTASSIUM CHLORIDE 60 MEQ, LIDOCAINE 1% (LOCAL ANESTH.) 6 ML in SODIUM CHL 0.9% 500 ML IV ONE (17:45)
--- NOTE | 2020-06-28 20:00 | NUR ---
Opening Shift Note Assumed care of patient, awake and alert. No S/S of distress/SOB or pain. Instructed on POC and to call for assist PRN, will continue to monitor for changes Q1hr and PRN.
--- NOTE | 2020-06-28 20:36 | NUR ---
Called/paged Coral Agosto called re:positive for UTI, no antibiotic . Waiting for call back. Continue care.
--- NOTE | 2020-06-28 21:18 | NUR ---
returned call Coral Agosto returned call, updated on patient status and reason for call, orders received of Rocephin 1 gram daily. Continue care.
[2020-06-28] MEDS: cefTRIAXone 1GM/50ML D5W 50 ML IV SCH (21:34)
[2020-06-28] MEDS: ATORVASTATIN 20 MG TAB PO SCH (21:35)
[2020-06-28] MEDS: MONTELUKAST SODIUM 10 MG TAB PO SCH (21:35)
[2020-06-28] MEDS: TEMAZEPAM 15 MG CAP PO PRN (21:56)
[2020-06-28 23:23] VITALS: BP 141/77
[2020-06-29] MEDS: HYDROcodone-ACET 5/325MG TAB PO PRN ×3 (00:41→17:58)
[2020-06-29 05:16] VITALS: BP 143/83
[2020-06-29 07:00] LABS: Albumin 2.8 g/dL (3.4-5.0); BUN/Creatinine Ratio 16.9; Bilirubin, Total 0.4 mg/dL (0.2-1.0); Calcium 8.5 mg/dL (8.5-10.1); Magnesium 2.6 mg/dL (1.6-2.6); Total Protein 6.5 g/dL (6.4-8.2)
--- NOTE | 2020-06-29 07:16 | NUR ---
Care report given to Romulo Bryant, patient is resting no discomfort.
[2020-06-29 07:51] LABS: Basophils # (auto) 0 10 ^3/uL (0-0.2); Basophils % (auto) 0.4 % (0.0-2.0); Eosinophils # (auto) 0.5 10 ^3/uL (0-0.8); Eosinophils % (auto) 5.2 % (0.0-7.0); Hematocrit 34.9 % (36.0-46.0); Hemoglobin 11.5 g/dL (12.2-16.2); Lymphocytes % (auto) 11.8 % (10.0-50.0); Mean Corpuscular Hemoglobin 29.3 pg (28.0-32.0); Mean Corpuscular Hgb Conc. 33.1 g/dL (32.0-36.0); Mean Corpuscular Volume 88.5 fL (80.0-100.0); Monocytes # (auto) 0.2 10 ^3/uL (0-1.3); Monocytes % (auto) 2.1 % (0.0-12.0); Neutrophils # (auto) 7.1 10 ^3/uL (1.6-8.6); Neutrophils % (auto) 80.5 % (37.0-80.0); Nucleated Red Blood Cells % 0.2 %; Platelet Count (auto) 327 10^3/uL (140-450); Red Blood Cells 3.94 10^6/uL (4.0-5.20); Red Cell Distribution Width 18.6 % (11.8-14.3); White Blood Cell 8.8 10^3/uL (4.4-10.8)
[2020-06-29 08:34] LABS: Potassium 2.1 mmol/L (3.5-5.1)
[2020-06-29 09:03] VITALS: BP 138/86
[2020-06-29] MEDS ORDERED: POTASSIUM CHL 20 Meq TABLET PO ONE (09:15)
[2020-06-29] MEDS ORDERED: POTASSIUM CHL 20MEQ/100ML 100 ML IV ONE (09:15)
[2020-06-29] MEDS: cefTRIAXone 1GM/50ML D5W 50 ML IV SCH (09:47)
[2020-06-29] MEDS: ENOXAPARIN SOD 40 MG/0.4 ML SYRINGE SC SCH (09:48)
[2020-06-29] MEDS: FAMOTIDINE 20 MG TAB PO SCH ×2 (09:48→21:11)
[2020-06-29] MEDS: SODIUM BICARBONATE 650 MG TAB PO SCH ×2 (09:49→21:12)
[2020-06-29] MEDS: ASPirin 81 mg TAB PO SCH (09:49)
[2020-06-29 13:00] VITALS: BP 135/85
[2020-06-29] MEDS: D5W/ SOD CHL 0.9%/KCL 20MEQ 1,000 ML IV SCH (13:00)
--- NOTE | 2020-06-29 16:01 | NUR ---
Regarding ss consult Nelly social work faculty member spoke to patient regarding ss consult and pt states she feels safe returning she needs no equipment and she states her will be picking her up uppon dc from hospital.
--- NOTE | 2020-06-29 16:26 | NUR ---
Assessment Patient is a 60-year-old female who is alert and oriented. Prior to admission patient lived home with and functioned independently. Patient states she does not have any medical equipment or is in need of any medical equipment. Per patient she will return home to her prior living arrangements post discharge and her will transport her home. Patient states she feels safe returning home. Advised patient there is a social service consult for home health for safety evaluation, pt, medication management and vitals. Informed patient her health plan [facility] does not cover for home health service. Informed patient she has a right to participate in all discharge planning. Patient verbalized understanding and agreed to discharge plan home. Informed CRISTOFER Cha. Addendum: 06/29/20 at 1631 by BAKARI REECE Amended: Links added.
[2020-06-29 16:56] VITALS: BP 138/82
--- NOTE | 2020-06-29 19:00 | NUR ---
Patient care endorse endorsed care to Mariola rn. Patient sitting in bed no acute distress or sob noted. Call light within reach
[2020-06-29] MEDS: MONTELUKAST SODIUM 10 MG TAB PO SCH (21:11)
[2020-06-29] MEDS: ATORVASTATIN 20 MG TAB PO SCH (21:11)
[2020-06-29] MEDS: TEMAZEPAM 15 MG CAP PO PRN (21:11)
--- NOTE | 2020-06-29 22:00 | NUR ---
Called/Coral Galaviz N.p. called re:patient requesting breathing treatment, patient has history of Asthma . Waiting for call back. Continue care.
[2020-06-29 22:04] VITALS: BP 137/71
--- NOTE | 2020-06-29 22:14 | NUR ---
returned call Coral Agosto returned call, updated on patient status and reason for call, orders received of albuterol 2.5mg. med.neb. every 4 hours as needed. Continue care.Terrell Martin
[2020-06-29] MEDS: ALBUTEROL SULF 2.5 MG/0.5ML(0.5%) NEB SOLN NEB PRN (23:03)
[2020-06-30] MEDS: HYDROcodone-ACET 5/325MG TAB PO PRN ×3 (00:05→20:24)
[2020-06-30 05:00] VITALS: BP 151/57
[2020-06-30] MEDS: D5W/ SOD CHL 0.9%/KCL 20MEQ 1,000 ML IV SCH (05:40)
--- NOTE | 2020-06-30 06:00 | NUR ---
Couple of nurses tried to insert an i.v. unsuccessful, patient is very hard stick.
[2020-06-30] MEDS: ALBUTEROL SULF 2.5 MG/0.5ML(0.5%) NEB SOLN NEB PRN ×3 (06:35→20:16)
--- NOTE | 2020-06-30 07:19 | NUR ---
Care report given to Romulo Bower, patient is resting no distress.
[2020-06-30 08:29] VITALS: BP 130/75
[2020-06-30 08:29] LABS: BUN/Creatinine Ratio 15.8
[2020-06-30] MEDS: ASPirin 81 mg TAB PO SCH (08:36)
[2020-06-30] MEDS: FAMOTIDINE 20 MG TAB PO SCH ×2 (08:36→21:27)
[2020-06-30] MEDS: SODIUM BICARBONATE 650 MG TAB PO SCH ×3 (08:36→21:27)
[2020-06-30] MEDS: ENOXAPARIN SOD 40 MG/0.4 ML SYRINGE SC SCH (08:38)
[2020-06-30 08:50] LABS: Potassium 2.8 mmol/L (3.5-5.1)
--- NOTE | 2020-06-30 08:55 | NUR ---
CRITICAL LAB RECEIVED CALL FROM [employer] WITH CRITICAL LAB. REFER TO LAB HX. ROSI SHAFER MD.
--- NOTE | 2020-06-30 09:00 | NUR ---
ATTENDING DR MOREIRA TO NOTIFY OF CRITICAL LAB VALUE. WILL AWAIT CALL BACK.
--- NOTE | 2020-06-30 09:07 | NUR ---
RECEIVED CALL BACK FROM MD SALAS, NEW ORDERS RECEIVED, READ BACK AND VERIFIED. WILL IMPLEMENT.
[2020-06-30] MEDS ORDERED: POTASSIUM CHL 20 Meq TABLET PO ONE ×2 (09:15→13:15)
--- NOTE | 2020-06-30 09:15 | NUR ---
MIDLINE RN AT BED SIDE
--- NOTE | 2020-06-30 09:30 | NUR ---
Midline Placement: Patient educated on need for midline placement. All risks and benefits explained and all questions and concerns addresses prior to procedure. 18g/8cm midline inserted via left basilic vein using Ultrasound. Sterile technique utilized. Blood return obtained from the single lumen and flushed easily with NS using proper technique. Midline secured with saline lock; biodisc and occlusive dressing applied. Primary RN Shasha notified. Midline lot # [id number].
[2020-06-30] MEDS ORDERED: SPIRONOLACTONE 25 MG TAB PO SCH (10:00)
[2020-06-30] MEDS: D5W/SOD CHL 0.45%/KCL 40MEQ 1,000 ML IV SCH ×2 (10:29→22:35)
[2020-06-30] MEDS: POTASSIUM CHL 20MEQ/100ML 100 ML IV SCH ×2 (12:22→14:49)
[2020-06-30 12:34] VITALS: BP 129/67
[2020-06-30 13:49] LABS: Protein, Urine 92.7 mg/dL (0.0-11.9)
[2020-06-30 13:50] LABS: Urine Bacteria NONE SEEN /hpf (None Seen); Urine Blood 1+ /uL (Negative); Urine Specific Gravity 1.014 (1.001-1.035); Urine WBC 8 /hpf (0 - 5)
[2020-06-30] MEDS ORDERED: OPTISON 3ml Vial for INJ IV ONE (14:55)
[2020-06-30 15:58] LABS: Magnesium 2.2 mg/dL (1.6-2.6); Phosphorus 2.6 mg/dL (2.5-4.90)
[2020-06-30 16:06] LABS: Folate (Folic Acid) 13.39 ng/mL (5.38-24)
[2020-06-30 16:15] VITALS: BP 139/89
[2020-06-30] MEDS ORDERED: CHOLECALCIFEROL (VITD3) 1,000UNIT=25mCg TAB PO ONE (16:45)
[2020-06-30] MEDS: MONTELUKAST SODIUM 10 MG TAB PO SCH (21:27)
[2020-06-30 22:00] VITALS: BP 131/74
[2020-06-30] MEDS: TEMAZEPAM 15 MG CAP PO PRN (22:14)
[2020-07-01] MEDS: HYDROcodone-ACET 5/325MG TAB PO PRN ×3 (01:40→13:16)
[2020-07-01] MEDS: ALBUTEROL SULF 2.5 MG/0.5ML(0.5%) NEB SOLN NEB PRN ×3 (04:35→14:04)
[2020-07-01 05:00] VITALS: BP 135/80
[2020-07-01] MEDS: SODIUM BICARBONATE 650 MG TAB PO SCH ×2 (06:59→12:09)
[2020-07-01 07:06] LABS: Calcium 8.4 mg/dL (8.5-10.1); Potassium 3.6 mmol/L (3.5-5.1)
--- NOTE | 2020-07-01 07:20 | NUR ---
End of Shift Note Endorsed care to dayshift RN. At this time patient has no s/s of distress or SOB.
[2020-07-01 07:24] LABS: BUN/Creatinine Ratio 15.5
[2020-07-01 08:00] VITALS: BP 125/67
--- NOTE | 2020-07-01 08:43 | NUR ---
PT REPORTS THAT SHE WALKS FINE AND DOES NOT NEED P.T.
[2020-07-01 09:00] VITALS: BP 125/67
--- NOTE | 2020-07-01 09:35 | NUR ---
Dr Thornton bedside with patient.
[2020-07-01] MEDS: ENOXAPARIN SOD 40 MG/0.4 ML SYRINGE SC SCH (09:41)
[2020-07-01] MEDS: FAMOTIDINE 20 MG TAB PO SCH (09:41)
[2020-07-01] MEDS ORDERED: CHOLECALCIFEROL (VITD3) 1,000UNIT=25mCg TAB PO SCH (10:00)
[2020-07-01] MEDS ORDERED: POTASSIUM EFFERVESENT TAB 25 MEQ PO SCH (10:00)
[2020-07-01] MEDS ORDERED: ASPirin 81 mg TAB PO SCH (10:00)
[2020-07-01] MEDS ORDERED: POTASSIUM CHL 20 Meq TABLET PO SCH (10:00)
[2020-07-01] MEDS ORDERED: SODI650T PO (11:42)
[2020-07-01] MEDS ORDERED: POTA10TA51 PO (11:42)
--- NOTE | 2020-07-01 11:45 | NUR ---
Dr Salazar bedside with patient
[2020-07-01 13:00] VITALS: BP 123/73
--- NOTE | 2020-07-01 14:15 | NUR ---
[facility] delivered patients home meds bedside
--- NOTE | 2020-07-01 14:45 | NUR ---
Discharge instructions given as ordered. Encourage to follow up with PMD as instructed. Unable to schedule appointment with PCP, patient provided phone number and address to schedule to be seen in 1 week. [facility] delivered new prescribed medications bedside. Patient aware to pick and shovel man additional medications on Saturday from [facility]. All questions and concerns addressed. Patient verbalized understanding. Medication reconciliation form completed and copy given to patient. No needed vaccines given, patient declined. IV removed with catheter intact and pressure dressing applied. Telemetry unit returned to ICU. Patient taken to vehicle via wheelchair with all personal belongings, accompanied by staff member. No distress noted at time of departure.
== END 2020-07-01 16:45 | disposition home health service (06) | DRG 425 ==
LOC: EDBD 01:34 → ER 01:38 → TELE 01:39 → TELE-CENTR 08:36
PROVIDERS: ADMIT Nurse Practitioner; ATTEND Internal Medicine
DX: E87.6 Hypokalemia (principal); N17.0 Acute kidney failure with tubular necrosis; I21.A1 Myocardial infarction type 2; R65.10 Systemic inflammatory response syndrome (SIRS) of non-infectious origin without acute organ dysfunction; M62.82 Rhabdomyolysis; E44.1 Mild protein-calorie malnutrition; N25.89 Other disorders resulting from impaired renal tubular function; E87.0 Hyperosmolality and hypernatremia; E87.2 Acidosis; G89.29 Other chronic pain; H54.8 Legal blindness, as defined in USA; D64.9 Anemia, unspecified; E66.9 Obesity, unspecified; E78.5 Hyperlipidemia, unspecified; M54.9 Dorsalgia, unspecified; I10 Essential (primary) hypertension; J45.909 Unspecified asthma, uncomplicated; F32.9 Major depressive disorder, single episode, unspecified; F41.9 Anxiety disorder, unspecified; E87.8 Other disorders of electrolyte and fluid balance, not elsewhere classified; Z81.1 Family history of alcohol abuse and dependence; Z86.73 Personal history of transient ischemic attack (TIA), and cerebral infarction without residual deficits; Z59.9 Problem related to housing and economic circumstances, unspecified; Z90.49 Acquired absence of other specified parts of digestive tract; Z68.35 Body mass index [BMI] 35.0-35.9, adult
CPT/HCPCS: 36415; 36600; 70450; 72125; 72128; 72131; 80048; 80053; 80061; 80307; 81001; 82306; 82436; 82550; 82570; 82746; 82805; 83036; 83735; 83880; 83970; 84100; 84132; 84133; 84156; 84300; 84443; 84484; 85025; 85610; 87086; 93306; 94640; G0378; J0696; J2001; J3480; Q9956

== ENCOUNTER 2020-09-28 19:08 | Inpatient (IN) | payer MEDICAID, OTHER ==
[~2020-09-28] VITALS: Ht 157.5 cm; Wt 87.0 kg
[~2020-09-28 19:08] MED LIST changes: -ALBU2SYP10 PO; +ALBUAER3 IN; -CARI-277 PO; -FAMO20TA10 PO; +HYDR-3682 PO; -HYDR-4833 PO; +IBUP200C14 PO; -IBUP800T24 PO; +IPRA0.00 IN; -MONT10TA34 OR; -NITR-87 PO; +NORT50CA57 PO; +POTA10TA51 PO; -PROM25TA5 PO; -VANC125PO PO; -VITACAP OR
[2020-09-28] MEDS ORDERED: SODIUM CHLORIDE 0.9% 1,000 ML IV ONE ×2 (21:45→22:00)
[2020-09-28 23:13] LABS: Basophils # (auto) 0.1 10 ^3/uL (0-0.2); Basophils % (auto) 0.4 % (0.0-2.0); Eosinophils # (auto) 0 10 ^3/uL (0-0.8); Eosinophils % (auto) 0.1 % (0.0-7.0); Hematocrit 33.2 % (36.0-46.0); Hemoglobin 10.5 g/dL (12.2-16.2); Lymphocytes # (auto) 0.8 10 ^3/uL (0.4-5.4); Lymphocytes % (auto) 4.2 % (10.0-50.0); Mean Corpuscular Hemoglobin 26.4 pg (28.0-32.0); Mean Corpuscular Hgb Conc. 31.7 g/dL (32.0-36.0); Mean Corpuscular Volume 83.4 fL (80.0-100.0); Monocytes # (auto) 1.2 10 ^3/uL (0-1.3); Monocytes % (auto) 6.3 % (0.0-12.0); Neutrophils # (auto) 16.6 10 ^3/uL (1.6-8.6); Platelet Count (auto) 465 10^3/uL (140-450); Red Blood Cells 3.98 10^6/uL (4.0-5.20); Red Cell Distribution Width 19.7 % (11.8-14.3); White Blood Cell 18.7 10^3/uL (4.4-10.8)
[2020-09-28 23:31] LABS: INR 1.04 (0.9-1.15); Partial Thromboplastin Time 27.3 sec (23.0-31.2)
[2020-09-28 23:32] LABS: Albumin 2.6 g/dL (3.4-5.0); Calcium 7.2 mg/dL (8.5-10.1)
[2020-09-28 23:37] LABS: BUN/Creatinine Ratio 16.4; Bilirubin, Total 0.4 mg/dL (0.2-1.0); Total Protein 6.4 g/dL (6.4-8.2)
[2020-09-28 23:39] LABS: Potassium 2.2 mmol/L (3.5-5.1)
[2020-09-29] MEDS ORDERED: SODIUM BICARBONATE 650 MG TAB PO ONE (01:15)
[2020-09-29] MEDS ORDERED: POTASSIUM CHL 20 Meq TABLET PO ONE ×3 (01:15→10:30)
[2020-09-29] MEDS ORDERED: ACETAMINOPHEN 325 MG TAB PO PRN (01:15)
[2020-09-29] MEDS ORDERED: ONDANSETRON HCL 4 MG/2 ML VIAL IV PRN (01:15)
[2020-09-29] MEDS ORDERED: SOD CHL 0.9%/ KCL 20MEQ 1,000 ML IV ONE (01:15)
[2020-09-29] MEDS ORDERED: cefTRIAXone 1GM/50ML D5W 50 ML IV ONE (01:15)
[2020-09-29] MEDS ORDERED: MORPHINE SULF INJ 2 MG/ML SYRINGE 1ML IV PRN (01:15)
[2020-09-29] MEDS ORDERED: NITROGLYCERIN 0.4 MG SL TAB SL PRN (01:15)
[2020-09-29] MEDS ORDERED: SODIUM BICARBONATE 8.4 % INJ 50ML VIAL IV ONE (01:30)
[2020-09-29 03:25] VITALS: BP 139/72
--- NOTE | 2020-09-29 03:25 | NUR ---
Telemetry admit from ER CHANDRIKA BELL admitted to Telemetry unit after SBAR received. Patient oriented to Krystina Asencio, primary RN, unit, room, bed, and unit policies regarding patient care and visiting hours. Patient now on continuous telemetry monitoring, tele box # 67 and telemetry reading on arrival to unit is 74. Patient placed on bedside oxygen, weighed by bedscale and encouraged to call if they need something. All questions and concerns addressed, patient verbalized understanding. Note:
[2020-09-29 05:12] VITALS: BP 139/72
[2020-09-29 07:28] LABS: Potassium 1.9 mmol/L (3.5-5.1)
--- NOTE | 2020-09-29 07:30 | NUR ---
Critical lab received: Potassium 1.9. Reported to on-call Coral Epps Telephone order received for KCL IV and PO now, 40meq each. Repeat lab in 4 hours.
[2020-09-29] MEDS ORDERED: POTASSIUM CHL 20MEQ/100ML 100 ML IV ONE (08:00)
[2020-09-29] MEDS: POTASSIUM CHL 20MEQ/100ML 100 ML IV SCH ×2 (08:28→10:57)
[2020-09-29 09:00] VITALS: BP 147/78
[2020-09-29 09:33] LABS: Free T3 0.74 pg/mL (2.3-4.2); Free T4 (Free Thyroxine) 0.39 ng/dL (0.89-1.76)
[2020-09-29] MEDS ORDERED: ASPirin 81 mg TAB PO SCH (10:00)
[2020-09-29] MEDS: SODIUM BICARBONATE 650 MG TAB PO SCH ×2 (10:33→21:53)
[2020-09-29] MEDS: PANTOPRAZOLE 40 MG TAB PO SCH (10:33)
[2020-09-29] MEDS ORDERED: SPIRONOLACTONE 25 MG TAB PO ONE (11:45)
[2020-09-29 13:00] VITALS: BP 120/81
[2020-09-29] MEDS: SODIUM BICARBONATE 50ML VIAL 150 ML in D5W 5% 1,000 ML IV SCH ×2 (13:02→21:53)
[2020-09-29 15:16] LABS: BUN/Creatinine Ratio 17.3; Calcium 6.8 mg/dL (8.5-10.1)
[2020-09-29 16:53] VITALS: BP 142/89
[2020-09-29] MEDS ORDERED: LEVOTHYROXINE SODIUM 25 MCG TAB PO ONE (19:00)
--- NOTE | 2020-09-29 19:30 | NUR ---
Opening Shift Note Assumed care of patient, awake and alert. No S/S of distress/SOB or pain. Fall and safety precautions in place. Call light within reach and able to use. Instructed on POC and to call for assist PRN, patient verbalized understanding and in agreement. Will continue to monitor for changes Q1hr and PRN.
--- NOTE | 2020-09-29 21:54 | NUR ---
ON-CALL HOSP PAGED - PAIN/INSOMNIA PATIENT REQUESTING MEDICATION TO HELP HER SLEEP. ADDITIONALLY, PATIENT COMPLAINED OF 10/10 CHRONIC PAIN TO BACK. PATIENT GIVEN TYLENOL (PRN FOR PAIN 1-3) FOR WHICH PATIENT WAS IN AGREEMENT (SEE EMAR FOR DOCUMENTATION). PATIENT HAS NO PRN'S FOR MODERATE OR SEVERE PAIN. ON-CALL HOSP PAGED. AWAITING CALL BACK. WILL CONTINUE TO MONITOR.
[2020-09-29 22:00] VITALS: BP 139/64
[2020-09-29 22:51] LABS: Potassium 3.1 mmol/L (3.5-5.1)
[2020-09-29 22:54] LABS: BUN/Creatinine Ratio 17.4; Calcium 6.9 mg/dL (8.5-10.1)
--- NOTE | 2020-09-29 23:19 | NUR ---
PAGED HOSP - SECOND ATTEMPT ON-CALL HOSP PAGED AGAIN AT THIS TIME. AWAITING CALL BACK. WILL CONTINUE TO MONITOR.
--- NOTE | 2020-09-29 23:28 | NUR ---
ON-CALL HOSP CALL BACK RECEIVED A CALL BACK FROM ON-CALL HOSP AT THIS TIME. UPDATED SPARE FIXER ON PATIENT STATUS AND PATIENT REQUEST. SPARE FIXER DENIES PATIENT REQUEST FOR "SLEEPING PILL". NEW ORDER RECEIVED, READ BACK AND VERIFIED (SEE NEW ORDERS). WILL CONTINUE TO MONITOR.
[2020-09-30] MEDS: SODIUM BICARBONATE 50ML VIAL 150 ML in D5W 5% 1,000 ML IV SCH ×2 (00:05→21:00)
[2020-09-30] MEDS: HYDROcodone-ACET 5/325MG TAB PO PRN ×3 (00:06→21:55)
[2020-09-30] MEDS: cefTRIAXone 1GM/50ML D5W 50 ML IV SCH (00:08)
[2020-09-30 05:00] VITALS: BP 135/54
--- NOTE | 2020-09-30 05:53 | NUR ---
URINE SAMPLE NOT YET COLLECTED AFTER ORDER VERIFIED, PATIENT HAS NOT YET URINATED. PATIENT AWARE OF NEED FOR URINE SAMPLE. WILL CALL WHEN SAMPLE IS READY. WILL CONTINUE TO MONITOR.
[2020-09-30] MEDS: LEVOTHYROXINE SODIUM 25 MCG TAB PO SCH (06:07)
[2020-09-30 07:10] LABS: Basophils # (auto) 0 10 ^3/uL (0-0.2); Basophils % (auto) 0.1 % (0.0-2.0); Eosinophils # (auto) 0.1 10 ^3/uL (0-0.8); Eosinophils % (auto) 0.6 % (0.0-7.0); Hematocrit 24.5 % (36.0-46.0); Hemoglobin 8.7 g/dL (12.2-16.2); Lymphocytes % (auto) 7.3 % (10.0-50.0); Mean Corpuscular Hemoglobin 27.8 pg (28.0-32.0); Mean Corpuscular Hgb Conc. 35.4 g/dL (32.0-36.0); Mean Corpuscular Volume 78.6 fL (80.0-100.0); Monocytes # (auto) 0.4 10 ^3/uL (0-1.3); Monocytes % (auto) 3.2 % (0.0-12.0); Neutrophils # (auto) 11.6 10 ^3/uL (1.6-8.6); Neutrophils % (auto) 88.8 % (37.0-80.0); Nucleated Red Blood Cells % 0.3 %; Platelet Count (auto) 371 10^3/uL (140-450); Red Blood Cells 3.12 10^6/uL (4.0-5.20); White Blood Cell 13.1 10^3/uL (4.4-10.8)
[2020-09-30 07:47] LABS: Albumin 2.2 g/dL (3.4-5.0); BUN/Creatinine Ratio 16.3; Bilirubin, Total 0.4 mg/dL (0.2-1.0); Calcium 6.6 mg/dL (8.5-10.1); Total Protein 5.7 g/dL (6.4-8.2)
[2020-09-30 07:54] LABS: Potassium 2.4 mmol/L (3.5-5.1)
--- NOTE | 2020-09-30 07:54 | NUR ---
Critical lab received. Potassium 2.4. Telephoned on-call hospitalist. Awaiting response. Addendum: 09/30/20 at 0838 by LAURA JOHNSON RN RN New orders acknowledged for potassium IV and PO to address critical potassium level. No longer expecting return call from hospitalist.
[2020-09-30] MEDS ORDERED: POTASSIUM CHLORIDE 80 MEQ, LIDOCAINE 1% (LOCAL ANESTH.) 6 ML in SODIUM CHL 0.9% 500 ML IV ONE (08:15)
[2020-09-30] MEDS ORDERED: POTASSIUM CHL 20 Meq TABLET PO ONE (08:15)
[2020-09-30] MEDS ORDERED: POTASSIUM CHLORIDE 40 MEQ, LIDOCAINE 1% (LOCAL ANESTH.) 4 ML in SODIUM CHL 0.9% 250 ML IV ONE ×2 (08:45→15:30)
[2020-09-30 08:49] VITALS: BP 126/72
[2020-09-30] MEDS: SPIRONOLACTONE 25 MG TAB PO SCH (09:27)
[2020-09-30] MEDS: SODIUM BICARBONATE 650 MG TAB PO SCH ×2 (09:27→21:53)
[2020-09-30] MEDS: PANTOPRAZOLE 40 MG TAB PO SCH (09:28)
[2020-09-30] MEDS: ASPirin 81 mg TAB PO SCH ×2 (10:00→18:06)
[2020-09-30 13:00] VITALS: BP 125/76
[2020-09-30] MEDS ORDERED: OPTISON 3ml Vial for INJ IV ONE (14:24)
[2020-09-30] MEDS: CALCIUM CARB 500 MG CHEW TAB PO SCH ×3 (16:21→22:00)
[2020-09-30] MEDS: POTASSIUM CHL 20 Meq TABLET PO SCH ×3 (16:24→21:54)
[2020-09-30 17:13] VITALS: BP 131/55
--- NOTE | 2020-09-30 19:30 | NUR ---
Opening Shift Note Assumed care of patient, awake and alert. No S/S of distress/SOB or pain. Insructed on POC and to callfor assist PRN, will continue to monitor for changes Q1hr and PRN. Fall and safety precautions in place. Call light within reach.
--- NOTE | 2020-09-30 21:30 | NUR ---
IV insertion IV access obtained, via clean sterile technique by inserting 22 gauge catheter at left wrist after several attempts. IV secured properly. No trauma to site. Patient tolerated well. IV removal IV DC'd with clean sterile technique, catheter fully intact. Pressure dressing applied to site. Patient tolerated well. NOTE: right wrist 20g removed due to leaking and swelling
[2020-09-30 22:00] VITALS: BP 127/73
--- NOTE | 2020-10-01 | NUR ---
HOSPITALIST Paged on-call hospitalist regarding patient's request for breathing treatments
[2020-10-01] MEDS: cefTRIAXone 1GM/50ML D5W 50 ML IV SCH (00:26)
--- NOTE | 2020-10-01 00:30 | NUR ---
HOSPITALIST Received call back from hospitalist on-call, Travis Knox NP. New orders received, read back and verified. will input and carry out
--- NOTE | 2020-10-01 00:35 | NUR ---
RT/SEBASTIAN RT paged for breathing treatment SEBASTIAN COVID swab obtained and walked to lab
[2020-10-01] MEDS: IPRATROPIUM BROM 0.5 MG/2.5ML INH SOL NEB PRN ×3 (01:06→19:37)
[2020-10-01] MEDS: ALBUTEROL SULF 2.5 MG/0.5ML(0.5%) NEB SOLN NEB PRN ×3 (01:06→19:37)
[2020-10-01] MEDS: LEVOTHYROXINE SODIUM 25 MCG TAB PO SCH (05:30)
[2020-10-01] MEDS: HYDROcodone-ACET 5/325MG TAB PO PRN ×2 (05:30→23:59)
[2020-10-01 05:53] VITALS: BP 125/76
--- NOTE | 2020-10-01 07:46 | NUR ---
Opening note: Assumed care of patient, asleep at this time. No S/S of distress/SOB or pain. Call light w/n reach, bed low, side rails up x 2, will continue to monitor for changes Q1hr and PRN.
[2020-10-01 09:00] VITALS: BP 125/53
[2020-10-01] MEDS: POTASSIUM CHL 20 Meq TABLET PO SCH (09:58)
[2020-10-01] MEDS: CALCIUM CARB 500 MG CHEW TAB PO SCH ×2 (09:58→10:08)
[2020-10-01] MEDS: PANTOPRAZOLE 40 MG TAB PO SCH (09:58)
[2020-10-01] MEDS: SPIRONOLACTONE 25 MG TAB PO SCH (09:58)
[2020-10-01] MEDS: SODIUM BICARBONATE 650 MG TAB PO SCH ×3 (09:59→10:08)
--- NOTE | 2020-10-01 11:00 | NUR ---
Respiratory note: PATIENT RECEIVED ON ROOM AIR. NO SIGNS OF RESPIRATORY DISTRESS. TREATMENT GIVEN AND TOLERATED. WILL CONTINUE TO MONITOR.
[2020-10-01] MEDS: SODIUM BICARBONATE 50ML VIAL 150 ML in D5W 5% 1,000 ML IV SCH ×2 (12:08→17:25)
[2020-10-01 12:36] VITALS: BP 128/54
[2020-10-01 15:45] LABS: Albumin 2.6 g/dL (3.4-5.0); BUN/Creatinine Ratio 17.8; Calcium 7.3 mg/dL (8.5-10.1); Potassium 3.2 mmol/L (3.5-5.1)
[2020-10-01 15:47] LABS: Bilirubin, Total 0.5 mg/dL (0.2-1.0); Total Protein 6.4 g/dL (6.4-8.2)
[2020-10-01 17:04] VITALS: BP 114/58
--- NOTE | 2020-10-01 17:08 | NUR ---
Potassium level 3.[address] Paiz. Telephone order received: start Klor-Con 25 mEq PO BID
--- NOTE | 2020-10-01 21:50 | NUR ---
Rosie Knox, RN, AVIONICS MECHANIC, hospitalist as pt requesting sleeping medication.
[2020-10-01 22:00] VITALS: BP 121/67
[2020-10-01] MEDS ORDERED: POTASSIUM EFFERVESENT TAB 25 MEQ PO SCH (22:00)
--- NOTE | 2020-10-01 22:44 | NUR ---
Hospitalist returned call, but hung up before RN able to come to phone. Repaged.
--- NOTE | 2020-10-02 00:31 | NUR ---
Pt' s called; stated he'd received no messages from or about his . Pt states that he has a physiological problem that :he cannot remember anything." Pt instructing him to write down where she is and other things which they are talking about.
[2020-10-02] MEDS: IPRATROPIUM BROM 0.5 MG/2.5ML INH SOL NEB PRN ×3 (01:33→23:17)
[2020-10-02] MEDS: ALBUTEROL SULF 2.5 MG/0.5ML(0.5%) NEB SOLN NEB PRN ×3 (01:33→23:17)
[2020-10-02] MEDS: cefTRIAXone 1GM/50ML D5W 50 ML IV SCH (02:41)
[2020-10-02 05:00] VITALS: BP 124/62
[2020-10-02] MEDS: LEVOTHYROXINE SODIUM 25 MCG TAB PO SCH (06:30)
[2020-10-02] MEDS ORDERED: SODIUM BICARBONATE 8.4 % INJ 50ML VIAL IV ONE (06:59)
[2020-10-02] MEDS: SODIUM BICARBONATE 50ML VIAL 150 ML in D5W 5% 1,000 ML IV SCH ×2 (07:08→18:29)
--- NOTE | 2020-10-02 08:12 | NUR ---
PRN TX NOT INDICATED AT THIS TIME. PT IS AWAKE, ALERT AND ORIENTED. PT ON RA. 96% O2 SATS. PT DENIES SOB OR ANY OTHER RESPIRATORY DISTRESS. WILL CONTINUE TO MONITOR PT.
[2020-10-02 09:00] VITALS: BP 121/56
[2020-10-02 09:19] LABS: Hemoglobin 7.3 g/dL (12.2-16.2)
[2020-10-02 09:21] LABS: Hematocrit 20.6 % (36.0-46.0); Mean Corpuscular Hemoglobin 28.3 pg (28.0-32.0); Mean Corpuscular Hgb Conc. 35.5 g/dL (32.0-36.0); Mean Corpuscular Volume 79.6 fL (80.0-100.0); Platelet Count (auto) 325 10^3/uL (140-450); Red Blood Cells 2.58 10^6/uL (4.0-5.20); Red Cell Distribution Width 19.4 % (11.8-14.3); White Blood Cell 10.3 10^3/uL (4.4-10.8)
[2020-10-02 09:28] LABS: Basophils % (manual) 0 (0.0-2.0); Blast Cells 0; Myelocytes % 0; Promyelocytes % 0; Reactive Lymphocytes 0
[2020-10-02 09:31] LABS: BUN/Creatinine Ratio 21.2
[2020-10-02 09:38] LABS: Potassium 2.8 mmol/L (3.5-5.1)
--- NOTE | 2020-10-02 09:45 | NUR ---
CRITICAL LAB VALUE POTASSIUM 2.8 MD JAMES SHAW
[2020-10-02 09:54] LABS: Band Neutrophils % (manual) 1; Eosinophils % (manual) 2 (0-7); Lymphocytes % (manual) 15 (10.0-50.0); Metamyelocytes % 3; Monocytes % (manual) 5 (0-12)
--- NOTE | 2020-10-02 09:59 | NUR ---
STOOL OCCULT EDUCATED PATIENT STOOL SAMPLE IS NEEDED, GAVE PATIENT THE SUPPLIES NEEDED. PATIENT VERBALIZED UNDERSTANDING
[2020-10-02] MEDS ORDERED: POTASSIUM CHLORIDE 40 MEQ, LIDOCAINE 1% (LOCAL ANESTH.) 4 ML in SODIUM CHL 0.9% 250 ML IV ONE (10:00)
[2020-10-02] MEDS: ASPirin 81 mg TAB PO SCH (10:27)
[2020-10-02] MEDS: PANTOPRAZOLE 40 MG TAB PO SCH (10:28)
[2020-10-02] MEDS: SPIRONOLACTONE 25 MG TAB PO SCH (10:28)
[2020-10-02] MEDS: SODIUM BICARBONATE 650 MG TAB PO SCH (10:28)
[2020-10-02] MEDS: CALCIUM CARB 500 MG CHEW TAB PO SCH ×2 (10:28→22:00)
--- NOTE | 2020-10-02 12:14 | NUR ---
Nutrition Assessment Notes Please refer to link for full assessment notes. Est Energy needs: [id number] kcals (17-20 kcal/kgBW) Est Protein needs: 50-63 gms/day (0.6-0.75 gm/kgBW) d/t pt with elev RFTs Will continue to monitor and reassess prn. Addendum: 10/02/20 at [address] Amended: Links added.
[2020-10-02] MEDS: POTASSIUM EFFERVESENT TAB 25 MEQ PO SCH ×2 (12:21→18:15)
[2020-10-02 13:00] VITALS: BP 115/65
--- NOTE | 2020-10-02 13:50 | NUR ---
URINE OSMOLALITY, URINE SODIUM AND URINE POTASSIUM OBTAINED AND SENT TO LAB
[2020-10-02 14:03] LABS: Sodium Urine 40 mmol/L (40-220)
[2020-10-02 17:00] VITALS: BP 127/94
--- NOTE | 2020-10-02 18:45 | NUR ---
Respiratory note: ASSESSED PT FOR PRN MED NEB TX. PT IS CURRENTLY ON ROOM AIR: HR 96, RR 18, SPO2 99%. PT SHOWS NO S/S OF SOB OR RESPIRATORY DISTRESS. MED NEB TX NOT INDICATED AT THIS TIME. WILL CONTINUE TO MONITOR.
[2020-10-02] MEDS: HYDROcodone-ACET 5/325MG TAB PO PRN (20:20)
--- NOTE | 2020-10-02 20:59 | NUR ---
Respiratory note: PAGED FOR BREATHING TX, BUT WHEN ARRIVED PT WAS SLEEPING. NO SOB OR DISTRESS NOTED. WILL CONTINUE TO MONITOR.
[2020-10-02 22:00] VITALS: BP 121/66
[2020-10-02] MEDS: NORTRIPTYLINE HCL 25 MG CAP PO SCH (22:00)
[2020-10-02] MEDS ORDERED: NORTRIPTYLINE HCL 10 MG CAP PO SCH (22:00)
[2020-10-02 22:17] LABS: Hematocrit 19.1 % (36.0-46.0)
[2020-10-02 22:22] LABS: Hemoglobin 6.6 g/dL (12.2-16.2)
[2020-10-03] MEDS: ZOLPIDEM TARTRATE 5 MG TAB PO PRN (00:05)
[2020-10-03] MEDS: SODIUM BICARBONATE 650 MG TAB PO SCH ×2 (00:41→09:59)
[2020-10-03] MEDS: cefTRIAXone 1GM/50ML D5W 50 ML IV SCH (00:42)
[2020-10-03] MEDS: ALBUTEROL SULF 2.5 MG/0.5ML(0.5%) NEB SOLN NEB PRN ×3 (01:20→18:59)
[2020-10-03] MEDS: IPRATROPIUM BROM 0.5 MG/2.5ML INH SOL NEB PRN ×3 (01:20→18:59)
--- NOTE | 2020-10-03 03:33 | NUR ---
1919: Received report from AM shift RN at bedside; POC updated with pt and all questions answered to pt satisfaction. Pt left BM in commode hat d/t RN attempt to collect occult blood stool sample - sample discarded d/t contamination. Commode reset for second attempt to collect. 22G L wrist has good flush and return - currently infusing Potassium at 31 ml/h; however, order is 68.5 ml/h. Unable to adjust to pump limit - infusion kept at 31 ml/h. Pt has I:E wheezing and requesting breathing tx. FoB elevated d/t BLE edema. 1999: TEL67, HR 98, MARIZA 0.12, QRS .08, NSR no PVCs or pauses. 2002: Pharmacy called to verify compatibility of potassium and bicarb - no answer; will try back later. RT paged per pt request for mild wheezing discomfort. 2119: Pt pain reassessed - see DEC - no further request for pain interventions at this time. [place] 5/325 was administered for 04/29 c/o pain to lower back. Second BM sample left in commode; however, the hat was not in placeso sample was discarded - will attempt to collect once more. 2127: RT paged x2 per pt request; received callback stating pt not in distress - not needed at this time Implemented 3rd page per pt request for breathing tx; however, RT stated pt not in distress - not warranted at this time. 2199: VS: T 99.0, HR 90, RR 19, SpO2 98% RA, BP 121/66 LUE, no c/o pain at this time. Wt 85.5 kg 7: pharmacist Eric called to verify compatibility of potassium and sodium bicarb infusions; per Eric - OK to infuse together. 9: Hospitalist paged regarding critical lab Hgb trending down at 6.6 from 6.8; ISIDORO Mahoney in ICU transporting code blue pt to higher level of care - will notify CN upon return. 0000: HS called to bring Pamelor 75 mg to unit since there is no med available on the unit and pharmacy is closed for the evening. pharmasist Eric confirmed compatibility of sodium bicarb and Rocephin - ok to infuse together. Pt refused administration of scheduled tums PO order - returned to [facility] with ISIDORO Mahoney. 0015: Hospitalist Arnie returned called and was notified of critical lab result; orders placed for 1 unit of blood to be given. Arnie declined recommendation to draw H&H level 15 min post infusion stating that AM lab draw will be sufficient. ISIDORO Mahoney assisting to place orders for blood and type and cross. lab notified of type and cross orders being placed and to prepare blood. 0023: Bicarb started at 100 mL/h from AM shift since RN was not aware of compatibility; Rocephin started. 0057: blood tubing primed and awaiting blood; phlebotomy bedside drawing type and cross. 0309: Bicarb stopped d/t transfusion preparations. 0324: blood obtained from lab via CHIEF INVESTMENT OFFICER with copy of signed consent prepared by ISIDORO Mahoney. Pre-transfusion VS: T 98.5 oral, HR 98, RR 16, SpO2 95% on RA, lung sounds clear, BP 119/54 RUE, MAP 77. RN remaining at bedside to assess for transfusion reaction. Transfusion initiated at 120 mL/h per infusion standard of 2mL/min. 0339: 15min reassessment VS: T 98.8 oral, HR 94, RR 16, lung sounds clear, SpO2 94%, BP 123/62, MAP 84. Transfusion will resume at 120 mL/h. Pt resting comfortably - RN at bedside. 0430: VS: T 98.9 oral, HR 90, RR 16, SpO2 94% RA, BP 128/74, MAP 94. Hat placed in commode for stool sample recollection. Pt stated voids x 3 during shift. Addendum: 10/03/20 at 0521 by Reg 10 RN 0502: OOB to commode - void x 1. Pt wheezing to exertion from self transfer; requesting breathing tx - RT paged per pt request. Pt requesting [place] administration 05/30 lower back pain dull constant non radiating. Addendum: 10/03/20 at 0826 by Reg 10 RN 0502: OOB to commode self transfer for void x 1; requesting breathing tx d/t wheezing exacerbation d/t movement - RT paged. 5675: Post blood transfusion VS: T 98.3, HR 93, SpO2 94% RA, RR 18, lung sounds wheezy (still awaiting RT to administer breathing tx), BP 130/95 (105). Bicarb infusion resumed at 100 mL/h. 0600: VS: T 98.9, HR 94, RR 18, SpO2 94% RA, BP 128/74 RUE, no c/o pain at this time; Intake 800 mL, output x 3 void during shift as reported by pt to CHIEF INVESTMENT OFFICER. 0655: RT paged per pt request for breathing tx; no treatments administered all shift. Addendum: 10/03/20 at 1013 by Reg 10 RN Pura Asif, BSN, RN, SCRN, PCCN, VA-BC, FELISA, TCRN, MICN - a [employer] employee from [facility], Telemetry unit
[2020-10-03 03:39] VITALS: BP 123/62
[2020-10-03 05:00] VITALS: BP 128/74
[2020-10-03] MEDS: HYDROcodone-ACET 5/325MG TAB PO PRN (05:31)
[2020-10-03] MEDS: LEVOTHYROXINE SODIUM 25 MCG TAB PO SCH (06:29)
[2020-10-03] MEDS: SODIUM BICARBONATE 50ML VIAL 150 ML in D5W 5% 1,000 ML IV SCH (06:30)
--- NOTE | 2020-10-03 07:08 | NUR ---
Respiratory note: RECEIVED PT ON ROOM AIR. NO RESPIRATORY DISTRESS NOTED. ADMINISTERED MEDNEB AND PATIENT TOLERATED WELL. WILL CONTINUE TO MONITOR.
[2020-10-03 08:31] LABS: Hematocrit 22.3 % (36.0-46.0); Mean Corpuscular Hemoglobin 28.2 pg (28.0-32.0); Red Blood Cells 2.75 10^6/uL (4.0-5.20); White Blood Cell 10.2 10^3/uL (4.4-10.8)
[2020-10-03 08:33] LABS: Hemoglobin 7.8 g/dL (12.2-16.2); Mean Corpuscular Hgb Conc. 34.8 g/dL (32.0-36.0); Mean Corpuscular Volume 81.1 fL (80.0-100.0); Platelet Count (auto) 319 10^3/uL (140-450); Red Cell Distribution Width 19.9 % (11.8-14.3)
[2020-10-03 08:39] LABS: Band Neutrophils % (manual) 0; Basophils % (manual) 0 (0.0-2.0); Blast Cells 0; Myelocytes % 0; Promyelocytes % 0; Reactive Lymphocytes 0
[2020-10-03 08:52] LABS: Albumin 2.1 g/dL (3.4-5.0); Calcium 8.2 mg/dL (8.5-10.1); Potassium 3.2 mmol/L (3.5-5.1)
[2020-10-03 08:55] LABS: Bilirubin, Total 0.6 mg/dL (0.2-1.0); Total Protein 5.6 g/dL (6.4-8.2)
[2020-10-03 09:00] VITALS: BP 133/62
[2020-10-03 09:08] LABS: Eosinophils % (manual) 3 (0-7); Lymphocytes % (manual) 21 (10.0-50.0); Metamyelocytes % 1; Monocytes % (manual) 7 (0-12)
[2020-10-03] MEDS: POTASSIUM EFFERVESENT TAB 25 MEQ PO SCH ×2 (09:59→16:10)
[2020-10-03] MEDS: ASPirin 81 mg TAB PO SCH (09:59)
[2020-10-03] MEDS: SPIRONOLACTONE 25 MG TAB PO SCH (10:00)
[2020-10-03] MEDS: PANTOPRAZOLE 40 MG TAB PO SCH (10:00)
[2020-10-03] MEDS: CALCIUM CARB 500 MG CHEW TAB PO SCH ×2 (10:01→22:00)
[2020-10-03] MEDS: SUCRALFATE 1 GM TAB PO SCH (16:56)
[2020-10-03 17:00] VITALS: BP 132/72
--- NOTE | 2020-10-03 19:30 | NUR ---
1954: Received report at bedside, and pt updated on POC; all questions answered to pt satisfaction. AIDET performed successfully. Pt requesting [place] and inquiring about pamelor for this shift since the med was not available last night. RN verified with pharmacy that the Pyxis was restocked and confirmed med available in the machine. Pt c/o of 7.5/10 lower back pain chronic, constant, described as sharp and dull with a pain goal of 6/10. BLE edema is resolving tonight compared to the night before - no longer c/o pain r/t swelling. Sodium bicarb continuous IVF infusion running through R wrist 24G - site has good flush and return. Collection of OB stool sample endorsed to PM shift since pt continues to compromise sample despite multiple attempts at instruction. Pt verbalizes understanding and agrees to assist with therapy compliance. Pt has bilateral wheezes with fine crackles on RA. Pt A&Ox4, pleasant, friendly, appropriate. Pt restates to RN that she is legally blind; however, able to navigate and perform ADLs independently. Hgb 7.8 after last night's transfusion of one unit blood; therefore, no need to contact MD for new orders. 1999: TEL67, HR 96, MARIZA 0.12, QRS 0.08, NSR with no PVCs or pauses. 2019: pt transferred via bed with RN and [employer] INSTALL[employer] escort to non-isolation room 219A from room 295A d/t unit converting to COVID floor. 2099: VS: T 99.1 oral, HR 100, RR 18, SpO2 97% RA, BP 146/77 LUE, no request for pain intervention at this time. Wt 87.0 kg. 2053: IVF infusion restarted. Pt requested curtain for new room; however, air liaison and special staff confirmed that only a dividing curtain is available in each room d/t shortage r/t to washing COVID compromised curtains, so for now, if pt requires privacy, then the door will have to be closed - pt aware of situation and is understanding. NEW commode placed at bedside and basin inserted for stool collection. Stool sample cup labeled and placed on bedside table. 2156: VS: T 98.3 oral, HR 103, RR 18, SpO2 95% RA, BP 129/63 LUE, MAP 74, 8/10 chronic low back pain, c/o SOB when self transferring to bedside commode - pt had BM, but watery - pt confirmed that urine was present. [employer] INST[employer]ER reset commode for recollection. 2200: HS med pass administered - see eMAR. Pt refused tums again tonight, states she doesn't want to take anything that she doesn't already take at home. Pt requested an ambien tonight to help with sleep, but requested it be given after 2330. Rocephin is Y-site compatible with bicarb; therefore, ABX hung and infused without pausing bicarb or need for second IV site. 0043: RT paged per pt request for breathing tx 0048: New bag of bicarb mixed by RN and resumed continuous infusion at 100 mL/h as ordered. 0119: TEL44 box arrived from ICU and placed on pt 0214: pain reassessment: pt sleeping comfortably; no further request for pain intervention at this time. 0600: VS: T 98.9 oral, HR 102, RR 18, SpO2 94% RA, BP 122/67 LUE, c/o pain 03/30. Void x1, BM x 1. RT was paged for breathing tx per pt request. [place] administered for c/o pain. Addendum: 10/04/20 at 0833 by Reg 10 RN Pura Asif, BSN, RN, SCRN, PCCN, VA-BC, FELISA, TCRN, MICN - a [employer] employee from [facility], Telemetry unit
[2020-10-03 19:33] LABS: Hematocrit 22.4 % (36.0-46.0); Hemoglobin 7.7 g/dL (12.2-16.2)
[2020-10-04 00:14] VITALS: BP 146/77
[2020-10-04] MEDS: NORTRIPTYLINE HCL 25 MG CAP PO SCH (00:53)
[2020-10-04] MEDS: SODIUM BICARBONATE 50ML VIAL 150 ML in D5W 5% 1,000 ML IV SCH (00:55)
[2020-10-04] MEDS: SUCRALFATE 1 GM TAB PO SCH ×3 (01:11→12:41)
[2020-10-04] MEDS: POTASSIUM EFFERVESENT TAB 25 MEQ PO SCH ×2 (01:11→10:34)
[2020-10-04] MEDS: ZOLPIDEM TARTRATE 5 MG TAB PO PRN (01:12)
[2020-10-04] MEDS: SODIUM BICARBONATE 650 MG TAB PO SCH ×2 (01:12→10:34)
[2020-10-04] MEDS: HYDROcodone-ACET 5/325MG TAB PO PRN ×3 (01:14→12:42)
[2020-10-04] MEDS: cefTRIAXone 1GM/50ML D5W 50 ML IV SCH (01:14)
[2020-10-04 05:50] VITALS: BP 122/67
[2020-10-04 06:34] LABS: Hematocrit 20.8 % (36.0-46.0); Hemoglobin 7.1 g/dL (12.2-16.2); Mean Corpuscular Hemoglobin 27.4 pg (28.0-32.0); Mean Corpuscular Hgb Conc. 33.9 g/dL (32.0-36.0); Mean Corpuscular Volume 80.9 fL (80.0-100.0); Platelet Count (auto) 318 10^3/uL (140-450); Red Blood Cells 2.58 10^6/uL (4.0-5.20); Red Cell Distribution Width 19.2 % (11.8-14.3); White Blood Cell 9.3 10^3/uL (4.4-10.8)
[2020-10-04] MEDS: LEVOTHYROXINE SODIUM 25 MCG TAB PO SCH (06:41)
[2020-10-04 06:58] LABS: Basophils % (manual) 0 (0.0-2.0); Blast Cells 0; Promyelocytes % 0; Reactive Lymphocytes 0
[2020-10-04 07:00] LABS: Potassium 3.7 mmol/L (3.5-5.1)
[2020-10-04 07:08] LABS: BUN/Creatinine Ratio 24.3; Calcium 7.9 mg/dL (8.5-10.1)
[2020-10-04] MEDS: IPRATROPIUM BROM 0.5 MG/2.5ML INH SOL NEB PRN ×2 (07:29→14:12)
[2020-10-04] MEDS: ALBUTEROL SULF 2.5 MG/0.5ML(0.5%) NEB SOLN NEB PRN ×2 (07:29→14:12)
[2020-10-04 08:30] VITALS: BP 138/79
[2020-10-04 10:06] LABS: Band Neutrophils % (manual) 3; Eosinophils % (manual) 2 (0-7); Lymphocytes % (manual) 19 (10.0-50.0); Metamyelocytes % 4; Monocytes % (manual) 10 (0-12); Myelocytes % 6
[2020-10-04] MEDS: PANTOPRAZOLE 40 MG TAB PO SCH (10:33)
[2020-10-04] MEDS: ASPirin 81 mg TAB PO SCH (10:33)
[2020-10-04] MEDS: SPIRONOLACTONE 25 MG TAB PO SCH (10:33)
[2020-10-04] MEDS: CALCIUM CARB 500 MG CHEW TAB PO SCH (10:33)
--- NOTE | 2020-10-04 10:35 | NUR ---
Scheduled medications given per order. Patient stable at this time.
--- NOTE | 2020-10-04 12:43 | NUR ---
Scheduled medication given. Patient also medicated for 8/10 neck, shoulder, and lower back pain. Patient stable at this time.
[2020-10-04 13:00] VITALS: BP 132/72
[2020-10-04 13:49] VITALS: BP 132/72
--- NOTE | 2020-10-04 16:40 | NUR ---
Discharge instructions Both written and verbal discharge instructions given to patient as ordered. Advised to call Dr. Villegas for an appointment within one week. All questions and concerns addressed. Patient verbalized understanding. Medication reconciliation form completed and copy given to patient. Peripheral IV removed intact with no active bleeding; pressure dressing applied to site. Telemetry unit returned to ICU. Patient stable at this time.
--- NOTE | 2020-10-04 17:35 | NUR ---
Discharge Patient taken to vehicle via wheelchair with all personal belongings, accompanied by staff member. No distress noted at time of departure.
== END 2020-10-04 17:35 | disposition home or self-care (01) | DRG 640 ==
LOC: ER 19:08 → EDBD 19:08 → TELE-WESTW 19:09 → TELE-CENTR 10-03 21:45
PROVIDERS: ADMIT Nurse Practitioner; ATTEND Internal Medicine
PROC: 30233N1 Transfusion of Nonautologous Red Blood Cells into Peripheral Vein, Percutaneous Approach (ICD-10-PCS; principal; 2020-10-03)
DX: E87.6 Hypokalemia (principal); I21.A1 Myocardial infarction type 2; N17.0 Acute kidney failure with tubular necrosis; M62.82 Rhabdomyolysis; D63.1 Anemia in chronic kidney disease; D72.829 Elevated white blood cell count, unspecified; E03.9 Hypothyroidism, unspecified; E66.9 Obesity, unspecified; Z68.35 Body mass index [BMI] 35.0-35.9, adult; E78.5 Hyperlipidemia, unspecified; E87.2 Acidosis; I12.9 Hypertensive chronic kidney disease with stage 1 through stage 4 chronic kidney disease, or unspecified chronic kidney disease; J45.909 Unspecified asthma, uncomplicated; N18.9 Chronic kidney disease, unspecified; Z81.1 Family history of alcohol abuse and dependence; F32.9 Major depressive disorder, single episode, unspecified; Z20.828 Contact with and (suspected) exposure to other viral communicable diseases
CPT/HCPCS: 36415; 36600; 71045; 80048; 80053; 82805; 83605; 83615; 83735; 83880; 83935; 84132; 84133; 84300; 84439; 84443; 84481; 84484; 85007; 85014; 85018; 85025; 85027; 85379; 85610; 85730; 86850; 86900; 86901; 86920; 87040; 87426; 93005; 93306; 94640; G0378; J0696; J2001; J3480; Q9956

== ENCOUNTER 2021-02-08 14:51 | Inpatient (IN) | payer OTHER, MEDICAID ==
[~2021-02-08] VITALS: Ht 157.5 cm; Wt 75.4 kg
[~2021-02-08 14:51] MED LIST changes: -POTA10TA51 PO
[2021-02-08] MEDS ORDERED: SODIUM CHLORIDE 0.9% 1,000 ML IVB ONE (16:00)
[2021-02-08] MEDS ORDERED: SODIUM CHLORIDE 0.9% 1,000 ML IV ONE (16:00)
[2021-02-08 16:27] LABS: Hematocrit 25.4 % (36.0-46.0); Red Blood Cells 3.02 10^6/uL (4.0-5.20)
[2021-02-08 16:29] LABS: Basophils # (auto) 0.1 10 ^3/uL (0-0.2); Basophils % (auto) 1.2 % (0.0-2.0); Eosinophils # (auto) 0.3 10 ^3/uL (0-0.8); Hemoglobin 8.7 g/dL (12.2-16.2); Lymphocytes # (auto) 1.3 10 ^3/uL (0.4-5.4); Lymphocytes % (auto) 15.3 % (10.0-50.0); Mean Corpuscular Hemoglobin 28.8 pg (28.0-32.0); Mean Corpuscular Hgb Conc. 34.3 g/dL (32.0-36.0); Monocytes # (auto) 0.5 10 ^3/uL (0-1.3); Monocytes % (auto) 5.5 % (0.0-12.0); Neutrophils # (auto) 6.3 10 ^3/uL (1.6-8.6); Nucleated Red Blood Cells % 0.1 %; Platelet Count (auto) 520 10^3/uL (140-450); White Blood Cell 8.6 10^3/uL (4.4-10.8)
[2021-02-08 16:31] LABS: Red Cell Distribution Width 20.2 % (11.8-14.3)
[2021-02-08 16:57] LABS: Albumin 2.8 g/dL (3.4-5.0); BUN/Creatinine Ratio 16.7; Bilirubin, Total 0.3 mg/dL (0.2-1.0); Calcium 8.7 mg/dL (8.5-10.1); Magnesium 2.9 mg/dL (1.6-2.6)
[2021-02-08 17:22] LABS: Potassium 1.6 mmol/L (3.5-5.1)
[2021-02-08] MEDS ORDERED: POTASSIUM CHL 20 Meq TABLET PO ONE (17:30)
[2021-02-08] MEDS: POTASSIUM CHL 20MEQ/100ML 100 ML IV SCH ×2 (17:53→19:55)
[2021-02-08] MEDS ORDERED: NITROGLYCERIN 0.4 MG SL TAB SL PRN (20:00)
[2021-02-08] MEDS ORDERED: MORPHINE SULF INJ 2 MG/ML SYRINGE 1ML IV PRN (20:00)
[2021-02-08] MEDS ORDERED: SOD CHL 0.9%/ KCL 40MEQ 1,000 ML IV SCH (20:00)
[2021-02-08 20:45] VITALS: BP 133/55
[2021-02-08 22:44] VITALS: BP 150/80
[2021-02-08 23:21] VITALS: BP 150/80
[2021-02-09] MEDS: HYDROcodone-ACET 5/325MG TAB PO PRN ×3 (01:40→19:51)
[2021-02-09 05:08] VITALS: BP 140/66
[2021-02-09 06:06] LABS: Basophils # (auto) 0.1 10 ^3/uL (0-0.2); Eosinophils # (auto) 0.4 10 ^3/uL (0-0.8); Hemoglobin 8.1 g/dL (12.2-16.2)
[2021-02-09 06:08] LABS: Basophils % (auto) 1.3 % (0.0-2.0); Eosinophils % (auto) 4.7 % (0.0-7.0); Hematocrit 23.6 % (36.0-46.0); Mean Corpuscular Hemoglobin 29.2 pg (28.0-32.0); Mean Corpuscular Hgb Conc. 34.5 g/dL (32.0-36.0); Mean Corpuscular Volume 84.7 fL (80.0-100.0); Monocytes # (auto) 0.4 10 ^3/uL (0-1.3); Monocytes % (auto) 4.9 % (0.0-12.0); Neutrophils % (auto) 67.1 % (37.0-80.0); Nucleated Red Blood Cells % 0.1 %; Platelet Count (auto) 497 10^3/uL (140-450); Red Blood Cells 2.79 10^6/uL (4.0-5.20); Red Cell Distribution Width 20.2 % (11.8-14.3); White Blood Cell 8.9 10^3/uL (4.4-10.8)
[2021-02-09 06:56] LABS: Albumin 2.5 g/dL (3.4-5.0); Bilirubin, Total 0.4 mg/dL (0.2-1.0); Calcium 7.9 mg/dL (8.5-10.1); Magnesium 2.8 mg/dL (1.6-2.6); Total Protein 6.1 g/dL (6.4-8.2)
[2021-02-09 06:57] LABS: Potassium 1.9 mmol/L (3.5-5.1)
[2021-02-09] MEDS ORDERED: POTASSIUM CHL 20 Meq TABLET PO ONE ×2 (07:45)
[2021-02-09] MEDS ORDERED: POTASSIUM CHLORIDE 80 MEQ, LIDOCAINE 1% (LOCAL ANESTH.) 6 ML in SODIUM CHL 0.9% 500 ML IV ONE (07:45)
[2021-02-09] MEDS: FAMOTIDINE 20 MG TAB PO SCH (08:56)
[2021-02-09] MEDS: SPIRONOLACTONE 25 MG TAB PO SCH (08:56)
[2021-02-09] MEDS: hydrOXYzine 25 MG TAB or CAP PO SCH (08:56)
[2021-02-09 09:00] VITALS: BP 135/71
[2021-02-09] MEDS: SODIUM BICARBONATE 50ML VIAL 150 ML in D5W 5% 1,000 ML IV SCH ×2 (10:45→21:25)
[2021-02-09 13:00] VITALS: BP 139/63
[2021-02-09 14:12] LABS: Urine Bacteria NONE SEEN /hpf (None Seen); Urine Blood 2+ /uL (Negative); Urine Hyaline Cast FEW /lpf (0 - 2); Urine Specific Gravity 1.009 (1.001-1.035); Urine WBC <1 /hpf (0 - 5)
[2021-02-09 14:18] LABS: Protein, Urine 65.7 mg/dL (0.0-11.9)
[2021-02-09 17:00] VITALS: BP 144/78
[2021-02-09] MEDS: POTASSIUM EFFERVESENT TAB 25 MEQ PO SCH ×2 (17:07→21:25)
[2021-02-09] MEDS: ALBUTEROL SULF 2.5 MG/0.5ML(0.5%) NEB SOLN NEB PRN (18:23)
[2021-02-09] MEDS: IPRATROPIUM BROM 0.5 MG/2.5ML INH SOL NEB PRN (18:23)
[2021-02-09] MEDS: NORTRIPTYLINE HCL 25 MG CAP PO SCH (18:32)
[2021-02-09 22:00] VITALS: BP 119/68
[2021-02-09] MEDS ORDERED: POTASSIUM EFFERVESENT TAB 25 MEQ GT SCH (22:00)
[2021-02-09] MEDS ORDERED: TEMAZEPAM 15 MG CAP PO ONE (23:15)
[2021-02-10] MEDS: ALBUTEROL SULF 2.5 MG/0.5ML(0.5%) NEB SOLN NEB PRN ×3 (04:23→19:15)
[2021-02-10] MEDS: IPRATROPIUM BROM 0.5 MG/2.5ML INH SOL NEB PRN ×3 (04:23→19:15)
[2021-02-10 05:00] VITALS: BP 116/70
[2021-02-10 05:41] LABS: Hematocrit 20.2 % (36.0-46.0); Hemoglobin 7.1 g/dL (12.2-16.2)
[2021-02-10 06:28] LABS: BUN/Creatinine Ratio 16.4; Calcium 8.2 mg/dL (8.5-10.1)
[2021-02-10 06:33] LABS: Potassium 2.6 mmol/L (3.5-5.1)
[2021-02-10] MEDS ORDERED: POTASSIUM CHL 20 Meq TABLET PO ONE (08:30)
[2021-02-10] MEDS: FAMOTIDINE 20 MG TAB PO SCH (08:47)
[2021-02-10] MEDS: SPIRONOLACTONE 25 MG TAB PO SCH (08:49)
[2021-02-10] MEDS: hydrOXYzine 25 MG TAB or CAP PO SCH (08:50)
[2021-02-10] MEDS: POTASSIUM EFFERVESENT TAB 25 MEQ PO SCH ×2 (08:51→21:01)
[2021-02-10] MEDS: SODIUM BICARBONATE 50ML VIAL 150 ML in D5W 5% 1,000 ML IV SCH ×2 (08:51→21:01)
[2021-02-10 09:00] VITALS: BP_SYST 109; BP_SYST 120; BP_DIAS 62
[2021-02-10] MEDS: HYDROcodone-ACET 5/325MG TAB PO PRN ×2 (11:05→21:11)
[2021-02-10 13:00] VITALS: BP 113/51
[2021-02-10 16:10] LABS: BUN/Creatinine Ratio 11.3; Calcium 8.7 mg/dL (8.5-10.1)
[2021-02-10 16:16] LABS: Potassium 2.9 mmol/L (3.5-5.1)
[2021-02-10] MEDS ORDERED: POTASSIUM CHLORIDE 80 MEQ, LIDOCAINE 1% (LOCAL ANESTH.) 6 ML in SODIUM CHL 0.9% 500 ML IV ONE (16:30)
[2021-02-10 17:00] VITALS: BP 126/70
[2021-02-10] MEDS: Ensure HIGH Protein Chocolate 8oz Bottle PO SCH (18:59)
[2021-02-10] MEDS: NORTRIPTYLINE HCL 25 MG CAP PO SCH (18:59)
[2021-02-10 22:00] VITALS: BP 113/75
[2021-02-10] MEDS ORDERED: ONDANSETRON HCL 4 MG/2 ML VIAL IV PRN (22:45)
[2021-02-10] MEDS ORDERED: TEMAZEPAM 15 MG CAP PO PRN (22:45)
[2021-02-11] VITALS (9 sets, daily range): BP systolic 98–145; BP diastolic 59–80
[2021-02-11] MEDS: IPRATROPIUM BROM 0.5 MG/2.5ML INH SOL NEB PRN ×3 (02:01→19:13)
[2021-02-11] MEDS: ALBUTEROL SULF 2.5 MG/0.5ML(0.5%) NEB SOLN NEB PRN ×3 (02:01→19:13)
[2021-02-11 06:28] LABS: Basophils # (auto) 0.1 10 ^3/uL (0-0.2); Basophils % (auto) 1.2 % (0.0-2.0); Eosinophils # (auto) 0.3 10 ^3/uL (0-0.8); Hematocrit 17.4 % (36.0-46.0); Lymphocytes # (auto) 2.3 10 ^3/uL (0.4-5.4); Monocytes # (auto) 0.4 10 ^3/uL (0-1.3); Neutrophils # (auto) 3.7 10 ^3/uL (1.6-8.6); Nucleated Red Blood Cells % 0.1 %; White Blood Cell 6.8 10^3/uL (4.4-10.8)
[2021-02-11 06:31] LABS: Eosinophils % (auto) 4.3 % (0.0-7.0); Lymphocytes % (auto) 34.4 % (10.0-50.0); Mean Corpuscular Hemoglobin 28.8 pg (28.0-32.0); Mean Corpuscular Hgb Conc. 35.1 g/dL (32.0-36.0); Mean Corpuscular Volume 82.2 fL (80.0-100.0); Monocytes % (auto) 6.2 % (0.0-12.0); Neutrophils % (auto) 53.9 % (37.0-80.0); Platelet Count (auto) 411 10^3/uL (140-450); Red Blood Cells 2.12 10^6/uL (4.0-5.20); Red Cell Distribution Width 19.4 % (11.8-14.3)
[2021-02-11 06:37] LABS: Potassium 3.1 mmol/L (3.5-5.1)
[2021-02-11 06:59] LABS: Albumin 2.2 g/dL (3.4-5.0); BUN/Creatinine Ratio 10.8; Bilirubin, Total 0.4 mg/dL (0.2-1.0); Total Protein 4.9 g/dL (6.4-8.2)
[2021-02-11 07:10] LABS: Hemoglobin 6.1 g/dL (12.2-16.2)
[2021-02-11] MEDS: Ensure HIGH Protein Chocolate 8oz Bottle PO SCH ×3 (10:00→18:11)
[2021-02-11] MEDS: hydrOXYzine 25 MG TAB or CAP PO SCH (10:00)
[2021-02-11] MEDS: SPIRONOLACTONE 25 MG TAB PO SCH (10:00)
[2021-02-11] MEDS: FAMOTIDINE 20 MG TAB PO SCH (10:00)
[2021-02-11] MEDS: POTASSIUM EFFERVESENT TAB 25 MEQ PO SCH ×2 (10:00→21:55)
[2021-02-11] MEDS ORDERED: POTASSIUM CHLORIDE 80 MEQ, LIDOCAINE 1% (LOCAL ANESTH.) 6 ML in SODIUM CHL 0.9% 500 ML IV ONE (13:30)
[2021-02-11] MEDS: HYDROcodone-ACET 5/325MG TAB PO PRN ×2 (17:08→23:07)
[2021-02-11] MEDS: NORTRIPTYLINE HCL 25 MG CAP PO SCH (18:11)
[2021-02-11 20:02] LABS: Hematocrit 28.6 % (36.0-46.0); Hemoglobin 9.6 g/dL (12.2-16.2)
[2021-02-11 20:22] LABS: BUN/Creatinine Ratio 10.6
[2021-02-12 02:07] VITALS: BP 145/80
[2021-02-12] MEDS: ALBUTEROL SULF 2.5 MG/0.5ML(0.5%) NEB SOLN NEB PRN ×5 (04:05→23:18)
[2021-02-12] MEDS: IPRATROPIUM BROM 0.5 MG/2.5ML INH SOL NEB PRN ×5 (04:05→23:18)
[2021-02-12 05:00] VITALS: BP 136/65
[2021-02-12 06:56] LABS: Basophils # (auto) 0.1 10 ^3/uL (0-0.2); Eosinophils # (auto) 0.3 10 ^3/uL (0-0.8); Hemoglobin 8.3 g/dL (12.2-16.2); Lymphocytes # (auto) 2.2 10 ^3/uL (0.4-5.4); Neutrophils # (auto) 3.5 10 ^3/uL (1.6-8.6); White Blood Cell 6.5 10^3/uL (4.4-10.8)
[2021-02-12 06:58] LABS: Eosinophils % (auto) 4.1 % (0.0-7.0); Lymphocytes % (auto) 34.2 % (10.0-50.0); Mean Corpuscular Hemoglobin 29.4 pg (28.0-32.0); Mean Corpuscular Hgb Conc. 34.4 g/dL (32.0-36.0); Mean Corpuscular Volume 85.4 fL (80.0-100.0); Monocytes # (auto) 0.5 10 ^3/uL (0-1.3); Monocytes % (auto) 7.2 % (0.0-12.0); Neutrophils % (auto) 53.5 % (37.0-80.0); Platelet Count (auto) 365 10^3/uL (140-450); Red Blood Cells 2.81 10^6/uL (4.0-5.20); Red Cell Distribution Width 18.8 % (11.8-14.3)
[2021-02-12 07:03] LABS: Albumin 2.3 g/dL (3.4-5.0); Calcium 8.8 mg/dL (8.5-10.1); Potassium 4.7 mmol/L (3.5-5.1)
[2021-02-12 07:08] LABS: BUN/Creatinine Ratio 15.3; Bilirubin, Total 0.4 mg/dL (0.2-1.0); Total Protein 5.3 g/dL (6.4-8.2)
[2021-02-12 08:27] VITALS: BP 136/73
[2021-02-12] MEDS: Ensure HIGH Protein Chocolate 8oz Bottle PO SCH ×3 (08:31→17:33)
[2021-02-12] MEDS: HYDROcodone-ACET 5/325MG TAB PO PRN ×2 (08:32→15:01)
[2021-02-12] MEDS: POTASSIUM EFFERVESENT TAB 25 MEQ PO SCH ×2 (09:18→22:42)
[2021-02-12] MEDS: FAMOTIDINE 20 MG TAB PO SCH (09:19)
[2021-02-12] MEDS: SPIRONOLACTONE 25 MG TAB PO SCH (09:19)
[2021-02-12] MEDS: hydrOXYzine 25 MG TAB or CAP PO SCH (09:19)
[2021-02-12 13:12] VITALS: BP 139/75
[2021-02-12] MEDS ORDERED: TEMAZEPAM 15 MG CAP PO PRN (13:30)
[2021-02-12 17:05] VITALS: BP 135/87
[2021-02-12] MEDS ORDERED: hydrOXYzine 25 MG TAB or CAP PO ONE (17:15)
[2021-02-12] MEDS: NORTRIPTYLINE HCL 25 MG CAP PO SCH (18:13)
[2021-02-12 18:34] LABS: BUN/Creatinine Ratio 11.3; Calcium 9.4 mg/dL (8.5-10.1); Potassium 5.1 mmol/L (3.5-5.1)
[2021-02-12 22:00] VITALS: BP 129/84
[2021-02-12] MEDS: IPRATROPIUM BROM 0.5 MG/2.5ML INH SOL NEB SCH (23:34)
[2021-02-12] MEDS: ALBUTEROL SULF 2.5 MG/0.5ML(0.5%) NEB SOLN NEB SCH (23:34)
[2021-02-13] MEDS: HYDROcodone-ACET 5/325MG TAB PO PRN ×2 (04:13→10:19)
[2021-02-13 05:00] VITALS: BP 113/52
[2021-02-13] MEDS: IPRATROPIUM BROM 0.5 MG/2.5ML INH SOL NEB SCH ×3 (06:49→19:02)
[2021-02-13] MEDS: ALBUTEROL SULF 2.5 MG/0.5ML(0.5%) NEB SOLN NEB SCH ×3 (06:50→19:02)
[2021-02-13 07:45] LABS: Basophils # (auto) 0.1 10 ^3/uL (0-0.2); Basophils % (auto) 1.1 % (0.0-2.0); Eosinophils # (auto) 0.4 10 ^3/uL (0-0.8); Eosinophils % (auto) 5.4 % (0.0-7.0); Hematocrit 27.6 % (36.0-46.0); Lymphocytes # (auto) 2.1 10 ^3/uL (0.4-5.4); Lymphocytes % (auto) 29.3 % (10.0-50.0); Mean Corpuscular Hemoglobin 29.7 pg (28.0-32.0); Mean Corpuscular Hgb Conc. 32.6 g/dL (32.0-36.0); Mean Corpuscular Volume 91.1 fL (80.0-100.0); Monocytes # (auto) 0.4 10 ^3/uL (0-1.3); Monocytes % (auto) 5.5 % (0.0-12.0); Neutrophils # (auto) 4.2 10 ^3/uL (1.6-8.6); Neutrophils % (auto) 58.7 % (37.0-80.0); Nucleated Red Blood Cells % 0.1 %; Platelet Count (auto) 336 10^3/uL (140-450); Red Blood Cells 3.02 10^6/uL (4.0-5.20); Red Cell Distribution Width 19.4 % (11.8-14.3); White Blood Cell 7.1 10^3/uL (4.4-10.8)
[2021-02-13 08:08] LABS: Potassium 4.9 mmol/L (3.5-5.1)
[2021-02-13 08:16] LABS: BUN/Creatinine Ratio 13.2
[2021-02-13 09:00] VITALS: BP_SYST 111; BP_SYST 131; BP_DIAS 62; BP_DIAS 80
[2021-02-13] MEDS: Ensure HIGH Protein Chocolate 8oz Bottle PO SCH ×3 (09:08→17:59)
[2021-02-13] MEDS: FAMOTIDINE 20 MG TAB PO SCH (10:19)
[2021-02-13] MEDS: hydrOXYzine 25 MG TAB or CAP PO SCH (10:19)
[2021-02-13] MEDS: SPIRONOLACTONE 25 MG TAB PO SCH (10:19)
[2021-02-13] MEDS: POTASSIUM EFFERVESENT TAB 25 MEQ PO SCH (10:20)
[2021-02-13 12:54] VITALS: BP 145/89
[2021-02-13] MEDS ORDERED: SPIR25TA PO (15:17)
[2021-02-13 16:00] VITALS: BP 151/84
[2021-02-13 16:34] VITALS: BP 145/89
[2021-02-13] MEDS: NORTRIPTYLINE HCL 25 MG CAP PO SCH (17:59)
== END 2021-02-13 19:51 | disposition home or self-care (01) | DRG 425 ==
LOC: EDUNIT# 14:51 → ER 14:51 → EDBD 14:51 → TELE 19:57 → TELE-WESTW 22:17
PROVIDERS: ADMIT Nurse Practitioner Acute Care; ATTEND Internal Medicine
PROC: 30233N1 Transfusion of Nonautologous Red Blood Cells into Peripheral Vein, Percutaneous Approach (ICD-10-PCS; principal; 2021-02-11)
DX: E87.6 Hypokalemia (principal); I21.A1 Myocardial infarction type 2; N17.0 Acute kidney failure with tubular necrosis; E87.2 Acidosis; E87.0 Hyperosmolality and hypernatremia; R65.10 Systemic inflammatory response syndrome (SIRS) of non-infectious origin without acute organ dysfunction; E44.0 Moderate protein-calorie malnutrition; E87.8 Other disorders of electrolyte and fluid balance, not elsewhere classified; D50.9 Iron deficiency anemia, unspecified; E66.9 Obesity, unspecified; J45.909 Unspecified asthma, uncomplicated; E03.9 Hypothyroidism, unspecified; E78.5 Hyperlipidemia, unspecified; F32.9 Major depressive disorder, single episode, unspecified; D63.8 Anemia in other chronic diseases classified elsewhere; F41.9 Anxiety disorder, unspecified; G89.29 Other chronic pain; H54.8 Legal blindness, as defined in USA; I12.9 Hypertensive chronic kidney disease with stage 1 through stage 4 chronic kidney disease, or unspecified chronic kidney disease; J44.9 Chronic obstructive pulmonary disease, unspecified; N18.9 Chronic kidney disease, unspecified; Z20.822 Contact with and (suspected) exposure to COVID-19; M62.82 Rhabdomyolysis; I69.398 Other sequelae of cerebral infarction; Z81.1 Family history of alcohol abuse and dependence; Z68.30 Body mass index [BMI] 30.0-30.9, adult
CPT/HCPCS: 36415; 36600; 71045; 80048; 80053; 81001; 82088; 82306; 82550; 82570; 82805; 83516; 83735; 83930; 83935; 83970; 84132; 84133; 84156; 84244; 84300; 84443; 84484; 85014; 85018; 85025; 86160; 86200; 86225; 86235; 86431; 86850; 86900; 86901; 86920; 87426; 93005; 93976; 94640; 96365; G0378; J2001; J3480